=== PATIENT | female | born 1945 | race Caucasian/White ===

== ENCOUNTER → 2023-11-14 14:53 | Outpatient (REF) | payer MEDICARE, OTHER, SELFPAY | LOC: RCS 14:53 | PROVIDERS: ATTENDING PHYSICIAN Internal Medicine Cardiovascular Disease; FAMILY PHYSICIAN Hospitalist | DX: R06.02 Shortness of breath (principal) | CPT/HCPCS: 93306 ==

== ENCOUNTER → 2024-05-20 09:46 | Outpatient (REF) | payer MEDICARE, OTHER, SELFPAY ==
[2024-05-20 10:51] LABS: Urine Albumin Negative (Neg - Trace); Urine Bilirubin Negative (Negative); Urine Character Clear (Clear); Urine Color Yellow; Urine Glucose Negative (Negative); Urine Ketone Negative (Negative); Urine Leukocyte Negative (Negative); Urine Nitrite Negative (Negative); Urine Occult Blood Negative (Negative); Urine Specific Gravity 1.015 (<1.030); Urine Urobilinogen Negative (Neg - 1+)
== END ==
LOC: OLABHEARBC 09:46
DX: N39.0 Urinary tract infection, site not specified (principal)
CPT/HCPCS: 81003; 87086

== ENCOUNTER → 2024-05-24 09:35 | Outpatient (REF) | payer MEDICARE, OTHER, SELFPAY | LOC: RAD 09:35 | PROVIDERS: ATTENDING PHYSICIAN Physical Medicine & Rehabilitation; FAMILY PHYSICIAN Hospitalist | DX: M81.0 Age-related osteoporosis without current pathological fracture (principal) | CPT/HCPCS: 77080 ==

== ENCOUNTER → 2024-09-09 09:55 | Outpatient (REF) | payer MEDICARE, OTHER, SELFPAY ==
[2024-09-09 11:25] LABS: % Basophils 0.7 % (0-2); % Eosinophils 3.2 % (0-6); % Immature Granulocytes 0.2 % (0-0.5); % Monocytes 12.1 % (1.7-9.3); % Neutrophils 61.8 % (42.2-75.2); Absolute Eosinophils 0.2 10^3/uL (0-0.7); Absolute Lymphocytes 1.3 10^3/uL (1.2-3.4); Absolute Monocytes 0.7 10^3/uL (0.1-0.6); Absolute Neutrophils 3.5 10^3/uL (1.4-6.5); Hematocrit 44.2 % (37.0-47.0); Hemoglobin 14.4 g/dL (12.0-16.0); Mean Corp Hgb Conc. 32.6 g/dL (33.0-37.0); Mean Corpuscular Hgb 30.8 pg (27.0-31.0); Mean Corpuscular Volume 94.6 fL (81.0-99.0); Mean Platelet Volume 11.2 fL (7.4-10.4); Nucleated Red Blood Cells % 0 %; Platelet Count 172 10^3/uL (130-400); Red Blood Cell Count 4.67 10^6/uL (4.20-5.40); Red Cell Dist. Width 14.3 % (11.5-14.5); White Blood Cell Count 5.7 10^3/uL (4.8-10.8)
[2024-09-09 12:01] LABS: ALT (SGPT) 17 U/L (0-35); AST (SGOT) 29 U/L (14-36); Alkaline Phosphatase 107 U/L (38-126); Blood Urea Nitrogen 20 mg/dl (7-17); Calcium 9.5 mg/dl (8.4-10.2); Carbon Dioxide 30 mmol/L (22-30); Chloride 98 mmol/L (98-107); Glucose 93 mg/dl (70-99); Potassium 4.5 mmol/L (3.5-5.1); Sodium 137 mmol/L (135-145); Total Protein 6.8 g/dl (6.3-8.2); eGFR 46.62
[2024-09-09 12:45] LABS: Erythrocyte Sed Rate 13 mm/hour (0-20)
== END ==
LOC: RAD 09:55
PROVIDERS: ATTENDING PHYSICIAN Internal Medicine; FAMILY PHYSICIAN Hospitalist
DX: M06.9 Rheumatoid arthritis, unspecified (principal); Z51.81 Encounter for therapeutic drug level monitoring
CPT/HCPCS: 36415; 73130; 80053; 85025; 85652; 86140

== ENCOUNTER 2024-10-14 19:47 | Inpatient (IN) | payer MEDICARE, OTHER, SELFPAY ==
[2024-10-14 14:01] VITALS: BMI 44.8
[2024-10-14 14:10] VITALS: BP 116/81
[2024-10-14 15:00] LABS: % Basophils 0.4 % (0-2); % Eosinophils 0.7 % (0-6); % Immature Granulocytes 0.2 % (0-0.5); % Lymphocytes 14.6 % (20.5-51.1); % Monocytes 12.2 % (1.7-9.3); % Neutrophils 71.9 % (42.2-75.2); Absolute Eosinophils 0.1 10^3/uL (0-0.7); Absolute Lymphocytes 1.3 10^3/uL (1.2-3.4); Absolute Monocytes 1.1 10^3/uL (0.1-0.6); Absolute Neutrophils 6.6 10^3/uL (1.4-6.5); Hematocrit 41.1 % (37.0-47.0); Hemoglobin 13.4 g/dL (12.0-16.0); Mean Corp Hgb Conc. 32.6 g/dL (33.0-37.0); Mean Corpuscular Volume 95.1 fL (81.0-99.0); Mean Platelet Volume 11.1 fL (7.4-10.4); Nucleated Red Blood Cells % 0 %; Platelet Count 151 10^3/uL (130-400); Red Blood Cell Count 4.32 10^6/uL (4.20-5.40); Red Cell Dist. Width 14.3 % (11.5-14.5); White Blood Cell Count 9.1 10^3/uL (4.8-10.8)
[2024-10-14 15:12] LABS: ALT (SGPT) 16 U/L (0-35); AST (SGOT) 27 U/L (14-36); Albumin 3.8 g/dl (3.5-5.0); Alkaline Phosphatase 108 U/L (38-126); Blood Urea Nitrogen 17 mg/dl (7-17); Calcium 8.6 mg/dl (8.4-10.2); Carbon Dioxide 33 mmol/L (22-30); Chloride 101 mmol/L (98-107); Glucose 83 mg/dl (70-99); Potassium 4.3 mmol/L (3.5-5.1); Sodium 139 mmol/L (135-145); Total Bilirubin 0.9 mg/dl (0.2-1.3); Total Protein 6.7 g/dl (6.3-8.2); eGFR 46.62
[2024-10-14 15:20] LABS: COVID-19 Antigen Negative (Negative)
[2024-10-14 15:24] LABS: NT-proBNP 680 pg/ml; Troponin I < 0.012 ng/ml
[2024-10-14 16:28] VITALS: BP 117/45
--- NOTE | 2024-10-14 17:21 | ED.GENMED ---
History of Present Illness
<Jessica Espino PA-C - Last Filed: 10/14/24 23:53>
General
Chief Complaint: Breathing Problem
Source: patient
Exam Limitations: none
Time Seen by Provider: 10/14/24 16:18
Nursing documentation reviewed up to this point in time: agreed with
History of Present Illness
History of Present Illness:
Patient is a 79-year-old female history hypertension, hyperlipidemia presenting to the emergency department with low pulse ox noted at urgent care. Patient reports 2 days of productive cough, low-grade fevers, and exertional shortness of breath.
She denies any associated chest pain or worsening lower extremity swelling/pain. She denies any nausea, vomiting, abdominal pain, urinary symptoms. No hemoptysis. No recent travel or recent surgeries. No lower extremity edema or pain. Patient
has had no known sick contacts.
This morning�patient was receiving an infusion for her rheumatoid arthritis when they recommended she be seen in urgent care due to her abnormal vital signs.
Patient does take hydroxychloroquine and methotrexate
Past History
<Jessica Espino PA-C - Last Filed: 10/14/24 23:53>
Past History
ED Past Medical History: None
ED Past Surgical History: None
Social History
Tobacco: Non-smoker
Alcohol: None
Drug: None
Living: alone
Review of Systems
<Jessica Espino PA-C - Last Filed: 10/14/24 23:53>
Review of Systems
Allergies reviewed?: Yes
All Other Systems: ROS reviewed and negative except as documented in HPI and ROS
Phy Exam
<Jessica Espino PA-C - Last Filed: 10/14/24 23:53>
Physical Exam
Physical Exam:
Vitals: 91% room air, otherwise vital signs stable. Afebrile
General: Patient is well appearing, no acute distress
Skin: Warm and dry, no rashes or lesions
Head: Normocephalic, atraumatic
Eyes: Sclera nonicteric. EOMs intact. No nystagmus.
Throat: Mildly dry mucous membranes. Protecting airway
Neck: Normal ROM, no cervical spine tenderness, no meningismus
Cardiac: Regular rate and rhythm, no murmurs.
Pulm: 91% on room air, lungs clear bilaterally without wheeze
Abdomen: Abdomen soft and nontender.
Extremities: No evidence of cyanosis or edema. Palpable DP pulses bilaterally
Neuro: AAOx3. Grossly intact.
Psychiatric: Normal affect.
Scores
<Jessica Espino PA-C - Last Filed: 10/14/24 23:53>
Heart Failure Risk
Heart Failure Risk Score: Not Applicable
Course
<Jessica Espino PA-C - Last Filed: 10/14/24 23:53>
Orders/Labs/Results
Orders:
Orders
10/14/24 14:16
Electrocardiogram (*1) Urgent
Reason for Study: Shortness of Breath
10/14/24 14:17
EKG- Treatment ONCE
10/14/24 14:33
COVID-19 Antigen Urgent
Source: Nasal Swab
Complete Blood Count/With Diff Urgent
Comprehensive Metabolic Panel Urgent
INF RAPID [Influenza A+B Rapid Molecular] Urgent
CARLOS Source: Nasal Swab
Specimen Description:
10/14/24 14:36
NT-proBNP Urgent
Troponin I Urgent
10/14/24 Dinner
Regular
At Your Request: Full Participation
10/14/24 16:43
CR Chest - 2 Views Urgent
Comment:
Reason For Exam: cough, sob
10/14/24 18:13
0.9% Sodium Chloride 500 ml [Nss] 500 ml IV BOLUS
CefTRIAXone [Rocephin] 2,000 mg IV NOW STA
Doxycycline [Vibramycin] 100 mg PO NOW STA
10/14/24 19:06
Admit/Transfer Patient As Directed
Co-Sign Provider:
Level of Care: Inpatient admission
Assign to:: Medical/Surgical
Physician / Group: hospitalist
Diagnosis: pneumonia
Reason for Hospitalization: hypoxia
Expected length of stay greater than two midnights?: Yes
ELOS- Estimated Length of Stay in days: 2
I certify the patient meets the requirements for IP care: Yes
PRN Pain Medication Management As Directed
May give lesser potent ordered pain med per pt: Yes
preference::
Protocol:: Medication orders for pain may be administered in a
manner that supports deferring to patient preference
when the pt is:
- Requesting an ordered lesser potent pain medication.
Least to most potent pain medications are defined
as: acetaminophen < NSAID < tramadol < opioids
(morphine, oxycodone, hydromorphone).
- Requesting a lesser dose of the same medication IF
ORDERED.
- Requesting a less intrusive route of administration
if both routes are prescribed by the provider (PO <
IV).
10/14/24 19:07
Code Status As Directed
Resuscitation Status: Do not resuscitate
Reached after discussion with pt or family/Healthcare POA: Yes
DNR Bracelet Application ONCE
10/14/24 19:51
Acetaminophen [Tylenol] 650 mg PO Q4HPRN PRN
Ipratropium/Albuterol Sulfate [Duoneb] 3 ml INH R Q4HPRN PRN
Mag Hydrox/Al Hydrox/Simeth [Maalox] 15 ml PO QIDPRN PRN
10/14/24 19:51
Legionella Urinary Antigen Routine
CARLOS Source: Urine
Specimen Description:
Respiratory Culture/Gram Stain Urgent
CARLOS Source: Sputum
Specimen Description:
Strep pneumoniae Antigen Routine
CARLOS Source: Urine
Specimen Description:
Activity As Directed
Activity Level: Out of Bed-Early Mobility
Intake/ Output As Directed
Frequency: Per unit guidelines
Vital Signs As Directed
Frequency: Per unit guidelines
Weight As Directed
Frequency: Once
Comment: on admission
O2 Therapy [RESP] Routine
Nasal Cannula Liter Flow: 2 LPM
Titrate/Wean O2 to maintain O2 sat greater than (%): 95
Special Instructions: Wean as tolerated
Pulse Ox/cont/shift [RESP] Routine
Quantity: 1
Special Instructions: notify provider if SPO2 < 91%
Rx Incentive Spirometry [RESP] Routine
Frequency: q1h while awake
Pt Eval And Treat Routine
Activity Level: With Assistance
DX Deep Vein Thrombosis Video Routine
10/14/24 20:00
Bupropion(12Hr)Sustain Release [WELLBUTRIN SR (12 hour sustained release)] 150 mg PO BID
Hydroxychloroquine [Plaquenil] 200 mg PO BID
10/14/24 21:19
MRSA Screen Routine
CARLOS Source: Nose
Specimen Description:
10/15/24 06:00
Basic Metabolic Panel IN AM
Complete Blood Count/No Diff IN AM
Levothyroxine [Synthroid] 25 mcg PO DAILY @ 0600
10/15/24 08:00
Doxycycline [Vibramycin] 100 mg PO BID
FOLic ACID [Folvite] 1 mg PO DAILY
10/15/24 18:00
Atorvastatin [Lipitor] 20 mg PO QPM
CefTRIAXone [Rocephin] 2,000 mg IV Q24H
Docusate Sodium [Colace] 100 mg PO QPM
Enoxaparin Sodium [Lovenox] 40 mg SC QPM
Metoprolol Xl [Toprol Xl] 25 mg PO QPM
Sertraline HCl [Zoloft] 50 mg PO QPM
Abnormal Lab Results
10/14/24
14:33
MCHC 32.6 L g/dL
(33.0-37.0)
MPV 11.1 H fL
(7.4-10.4)
Absolute Neuts (auto) 6.6 H 10^3/uL
(1.4-6.5)
Absolute Monos (auto) 1.1 H 10^3/uL
(0.1-0.6)
Lymphocytes % 14.6 L %
(20.5-51.1)
Monocytes % 12.2 H %
(1.7-9.3)
Carbon Dioxide 33 H mmol/L
(22-30)
Creatinine 1.2 H mg/dL
(0.6-1.0)
10/14/24 14:33
10/14/24 14:33
Vital Signs
Initial and Last Documented VS:
Initial Vital Signs
Temp Pulse Resp BP Pulse Ox
98.5 F 77 20 116/81 91
10/14/24 14:10 10/14/24 14:10 10/14/24 14:10 10/14/24 14:10 10/14/24 14:10
Last Documented Vital Signs
Temp Pulse Resp BP Pulse Ox
99.6 F 75 21 126/57 94
10/14/24 19:34 10/14/24 17:15 10/14/24 17:15 10/14/24 19:37 10/14/24 17:15
<Jimbo Velazquez MD - Last Filed: 10/14/24 18:39>
Orders/Labs/Results
Orders:
Orders
10/14/24 14:16
Electrocardiogram (*1) Urgent
Reason for Study: Shortness of Breath
10/14/24 14:17
EKG- Treatment ONCE
10/14/24 14:33
COVID-19 Antigen Urgent
Source: Nasal Swab
Complete Blood Count/With Diff Urgent
Comprehensive Metabolic Panel Urgent
INF RAPID [Influenza A+B Rapid Molecular] Urgent
CARLOS Source: Nasal Swab
Specimen Description:
10/14/24 14:36
NT-proBNP Urgent
Troponin I Urgent
10/14/24 Dinner
Regular
At Your Request: Full Participation
10/14/24 16:43
CR Chest - 2 Views Urgent
Comment:
Reason For Exam: cough, sob
10/14/24 18:13
0.9% Sodium Chloride 500 ml [Nss] 500 ml IV BOLUS
CefTRIAXone [Rocephin] 2,000 mg IV NOW STA
Doxycycline [Vibramycin] 100 mg PO NOW STA
10/14/24 19:06
Admit/Transfer Patient As Directed
Co-Sign Provider:
Level of Care: Inpatient admission
Assign to:: Medical/Surgical
Physician / Group: hospitalist
Diagnosis: pneumonia
Reason for Hospitalization: hypoxia
Expected length of stay greater than two midnights?: Yes
ELOS- Estimated Length of Stay in days: 2
I certify the patient meets the requirements for IP care: Yes
PRN Pain Medication Management As Directed
May give lesser potent ordered pain med per pt: Yes
preference::
Protocol:: Medication orders for pain may be administered in a
manner that supports deferring to patient preference
when the pt is:
- Requesting an ordered lesser potent pain medication.
Least to most potent pain medications are defined
as: acetaminophen < NSAID < tramadol < opioids
(morphine, oxycodone, hydromorphone).
- Requesting a lesser dose of the same medication IF
ORDERED.
- Requesting a less intrusive route of administration
if both routes are prescribed by the provider (PO <
IV).
10/14/24 19:07
Code Status As Directed
Resuscitation Status: Do not resuscitate
Reached after discussion with pt or family/Healthcare POA: Yes
DNR Bracelet Application ONCE
10/14/24 19:51
Acetaminophen [Tylenol] 650 mg PO Q4HPRN PRN
Ipratropium/Albuterol Sulfate [Duoneb] 3 ml INH R Q4HPRN PRN
Mag Hydrox/Al Hydrox/Simeth [Maalox] 15 ml PO QIDPRN PRN
10/14/24 19:51
Legionella Urinary Antigen Routine
CARLOS Source: Urine
Specimen Description:
Respiratory Culture/Gram Stain Urgent
CARLOS Source: Sputum
Specimen Description:
Strep pneumoniae Antigen Routine
CARLOS Source: Urine
Specimen Description:
Activity As Directed
Activity Level: Out of Bed-Early Mobility
Intake/ Output As Directed
Frequency: Per unit guidelines
Vital Signs As Directed
Frequency: Per unit guidelines
Weight As Directed
Frequency: Once
Comment: on admission
O2 Therapy [RESP] Routine
Nasal Cannula Liter Flow: 2 LPM
Titrate/Wean O2 to maintain O2 sat greater than (%): 95
Special Instructions: Wean as tolerated
Pulse Ox/cont/shift [RESP] Routine
Quantity: 1
Special Instructions: notify provider if SPO2 < 91%
Rx Incentive Spirometry [RESP] Routine
Frequency: q1h while awake
Pt Eval And Treat Routine
Activity Level: With Assistance
DX Deep Vein Thrombosis Video Routine
10/14/24 20:00
Bupropion(12Hr)Sustain Release [WELLBUTRIN SR (12 hour sustained release)] 150 mg PO BID
Hydroxychloroquine [Plaquenil] 200 mg PO BID
10/14/24 21:19
MRSA Screen Routine
CARLOS Source: Nose
Specimen Description:
10/15/24 06:00
Basic Metabolic Panel IN AM
Complete Blood Count/No Diff IN AM
Levothyroxine [Synthroid] 25 mcg PO DAILY @ 0600
10/15/24 08:00
Doxycycline [Vibramycin] 100 mg PO BID
FOLic ACID [Folvite] 1 mg PO DAILY
10/15/24 18:00
Atorvastatin [Lipitor] 20 mg PO QPM
CefTRIAXone [Rocephin] 2,000 mg IV Q24H
Docusate Sodium [Colace] 100 mg PO QPM
Enoxaparin Sodium [Lovenox] 40 mg SC QPM
Metoprolol Xl [Toprol Xl] 25 mg PO QPM
Sertraline HCl [Zoloft] 50 mg PO QPM
Abnormal Lab Results
10/14/24
14:33
MCHC 32.6 L g/dL
(33.0-37.0)
MPV 11.1 H fL
(7.4-10.4)
Absolute Neuts (auto) 6.6 H 10^3/uL
(1.4-6.5)
Absolute Monos (auto) 1.1 H 10^3/uL
(0.1-0.6)
Lymphocytes % 14.6 L %
(20.5-51.1)
Monocytes % 12.2 H %
(1.7-9.3)
Carbon Dioxide 33 H mmol/L
(22-30)
Creatinine 1.2 H mg/dL
(0.6-1.0)
10/14/24 14:33
10/14/24 14:33
Vital Signs
Initial and Last Documented VS:
Initial Vital Signs
Temp Pulse Resp BP Pulse Ox
98.5 F 77 20 116/81 91
10/14/24 14:10 10/14/24 14:10 10/14/24 14:10 10/14/24 14:10 10/14/24 14:10
Last Documented Vital Signs
Temp Pulse Resp BP Pulse Ox
99.6 F 75 21 126/57 94
10/14/24 19:34 10/14/24 17:15 10/14/24 17:15 10/14/24 19:37 10/14/24 17:15
<Jessica Espino PA-C - Last Filed: 10/14/24 23:53>
MDM/Problems Addressed
Differential Diagnosis Includes:
Not limited to: Viral illness, bronchitis, pneumonia, pulmonary embolism, etc.
MDM/Problems Addressed:
79-year-old female with history as documented presenting with a few days of productive cough, subjective fevers, and exertional shortness of breath. She was found to be hypoxic at urgent care and referred to emergency department. Patient denies
any associated chest pain or hemoptysis. No lower extremity edema. Patient hypoxic requiring 2 L nasal cannula, otherwise stable vital signs. She is afebrile. Physical exam as above. Given history of subjective fevers and new cough�concern for
possible infectious process including pneumonia or bronchitis. Screening labs are sent in triage. CBC without any leukocytosis. Chemistry with mild renal insufficiency which appears baseline. Troponin undetectable with BNP of 680. Viral swabs
are negative. EKG obtained shows sinus rhythm ischemic changes. Will check chest x-ray and reassess.
Update: Chest x-ray shows likely right lower lobe pneumonia which is consistent with patient's symptoms. Patient is comfortable on 2 L nasal cannula. Given evidence of pneumonia requiring supplemental oxygen along with mild immunosuppression
secondary to methotrexate/hydroxychloroquine�patient will be admitted for IV antibiotics, supplemental O2. Patient given IV Rocephin, oral doxycycline in the emergency department�patient was accepted to hospitalist service in stable condition.
Chronic conditions affecting care:
Hypertension, hyperlipidemia, rheumatoid arthritis
Acute Exacerbation and/or Progression of Chronic Illness:
N/A
<Jessica Espino PA-C - Last Filed: 10/14/24 23:53>
*Radiology
Radiology exam reviewed: preliminary read by ED provider (Chest x-ray reviewed by me-opacity in right lower lobe) and radiology read reviewed (Chest x-ray with findings consistent of right lower lobe pneumonia)
*Pulse Oximetry
Patient hypoxic: no
*EKG
Interpreted by ED Provider?: Yes
EKG Intrepretation Date: 10/14/24
Interpretation: abnormal
Comparison EKG: no comparison EKG present
Heart Rate: 72
Rhythm: sinus
[place]: left axis deviation
Interval: normal QT interval
QRS Pattern: low voltage
Ischemia: non-specific ST changes
*Bank Operations Officer Interpretation
Rate: normal
Interpretation: normal
Heart Rate: 76
Rhythm: sinus
*Critical Care Note
Total Time (30-74mins, 75-104mins- exclusive of procedures): Not Applicable
<Jessica Espino PA-C - Last Filed: 10/14/24 23:53>
Patient Management
Discussion with other providers: Hospitalist (Case discussed with hospitalist)
Escalation/DeEscalation of care consider admission/obs:
Admit for IV antibiotics, supplemental O2
ED Attending Note
<Jessica Espino PA-C - Last Filed: 10/14/24 23:53>
-
Portions of this chart may have been created with voice recognition software.� Occasional wrong word or��sound alike� substitutions may have occurred due to the inherent limitations of voice recognition software.
<Jimbo Velazquez MD - Last Filed: 10/14/24 18:39>
ED Attending Note
Patient seen and examined by attending physician: Yes
ED Attending Note:
I have seen and evaluated the patient with a [id number] encounter. I have spoken to the advance practicer provider and involved in the medical history, the physical exam, medical decision making.
Evaluation and management service: agree unless noted differently below.
Results interpretation: agree unless noted differently below.
Focused HPI: 79-year-old female presents to the ER for evaluation of cough, shortness of breath; noted to be hypoxic at urgent care earlier today. Patient reports that she had a viral URI about 3 weeks ago and never fully recovered. Over the past
2 days has had increasing cough and shortness of breath. She said she had a fever last night. No swelling in the legs. No GI symptoms.
Physical exam: Awake and alert not in acute distress. Hypoxic requiring 2 L nasal cannula but otherwise normal vitals. She has some diminished breath sounds at the lung bases. No cardiac rubs gallops or murmurs. Abdomen nontender. Mild edema in
the legs.
Medical Decision Makin-year-old female presents with cough and shortness of breath status post recent viral syndrome. Labs reviewed CBC unremarkable, CMP shows CKD which is stable. COVID and flu negative. Chest x-ray shows right midlung
pneumonia. Will plan to admit for acute hypoxic respiratory failure secondary to pneumonia.
Discharge Plan
Departure
Patient Disposition: Admit
Date of Disposition: 10/14/24
Time of Disposition: 18:15
Presentation/result/management discussed w/ accepting MD/DO: Hospitalist
Discharge Problem:
Right lower lobe pneumonia
Interventions
Interventions:
*Risk Screen - Suicide Last Done: 10/14/24 14:10
*General Assessment Last Done: 10/14/24 14:10
*Neglect/Abuse Screening Last Done: 10/14/24 16:22
*ED- Fall Risk Assessment Last Done: 10/14/24 16:22
*ED COVID-19 Vaccine History Last Done: 10/14/24 14:10
ED- Cardiac Assessment Last Done: 10/14/24 16:22
ED- Pulmonary Assessment Last Done: 10/14/24 16:22
--- NOTE | 2024-10-14 18:54 | HPS.HSE ---
Family Physician
-
Family Physician: Mojgan Burciaga DO
Chief Complaint
-
Cough and shortness of breath
History of Present Illness
This is a 79-year-old female with past medical history significant for rheumatoid arthritis on monthly infusions and Plaquenil but not currently on steroids, history of previous spontaneous aneurysmal bleed status post craniotomy, hypothyroid,
hyperlipidemia, and depression who presents to the emergency department with worsening cough and shortness of breath.
Patient reports that she has had a cough for about 2 days which is productive of scant sputum. However overnight she reports cough paroxysms which prevented her from sleeping. She reports the cough is associated with pain across her ribs. She
reports shortness of breath over the last 2 days with no dyspnea on exertion and no exertional chest pain. Patient was seen at urgent care today and was found to be hypoxic. She was pending infusion for monthly rheumatoid treatment but she
appeared quite ill to the clinic and that was postponed.
Patient reports that she has had several months of shortness of breath which was not quite severe. Alcohol is only at night which associated with deep breathing. It is never associated with any exertional chest pain or pleuritic chest pain. She
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 She reported that she had a fever today but she did not measure her temperature. She has no known sick contacts.
Patient reported that about 2 months ago she was diagnosed with upper respiratory infection.
In the emergency department she was recorded with a temp of 98.5, blood pressure was 117/45 with a pulse of 75 and she was satting 94% on 2 L. ECG shows a normal sinus rhythm at a rate of 72 and no acute changes, no prior for comparison. Troponin
was negative. proBNP was slightly abnormal at 680. CBC was completely normal. Electrolytes BUN/creatinine within the normal range. Chest x-ray shows a right lower lobe opacity.
Medical History
Past Medical History
Past Medical History: Reports Hypercholesterolemia and Other (Rheumatoid arthritis)
Additional Past Medical History:
Intracranial aneurysm status post bleed
Past Surgical History: Reports Orthopedic (Lumbar spinal fusion, status post left hip arthroplasty)
Social History
Tobacco: Former Smoker
Alcohol: None
Drug: None
Personal: Single
Living: Assisted Living
Employment: Retired
Family History
Family History: Not pertinent
Allergies / Home Medications
Allergies reflects when Allergies were last updated in [facility].
Home Medications with original date entered in [facility]
Allergy/Medication List:
Allergies
Allergy/AdvReac Type Severity Reaction Status Date / Time
No Known Allergies Allergy Verified 10/14/24 16:23
Home Medications
atorvastatin 20 mg tablet 20 mg PO QPM High Cholesterol 05/24/23
bupropion HCl 150 mg tablet,12 hr sustained-release 150 mg PO BID Mental Health/Anxiety 05/24/23
cholecalciferol (vitamin D3) 25 mcg (1,000 unit) tablet (Vitamin D3) 25 mcg PO DAILY Supplement 05/24/23
docusate sodium 100 mg capsule 100 mg PO QPM Constipation 05/24/23
folic acid 1 mg tablet 1 mg PO DAILY Supplement 05/24/23
hydroxychloroquine 200 mg tablet (Plaquenil) 200 mg PO BID RHEUMATOID ARTHRITIS 05/24/23
levothyroxine 25 mcg tablet 25 mcg PO DAILY Thyroid 05/24/23
sertraline 50 mg tablet 50 mg PO QPM Mental Health/Anxiety 05/24/23
acetaminophen 325 mg tablet 650 mg (2 x 325 mg) PO Q4HPRN PRN mild pain #30 tabs 05/28/23
metoprolol succinate 25 mg tablet,extended release 24 hr 25 mg PO QPM #30 tabs 05/28/23
abatacept 87.5 mg/0.7 mL subcutaneous syringe (Orencia) 0 mg SC MONTHLY 10/14/24
methotrexate 2.5 mg/mL oral solution 0 mg PO FR 10/14/24
Review of Systems
-
History Source: Patient
Constitutional: Reports Fever
EENT: Reports No Symptoms
Respiratory: Reports No Symptoms, Cough and Trouble Breathing
Cardiac: Reports No Symptoms
: Reports No Symptoms
Musculoskeletal: Reports No Symptoms
Skin: Reports No Symptoms
Neurological: Reports No Symptoms
Endocrine: Reports No Symptoms
Psych: Reports No Symptoms
Physical Exam
Vital Signs
Vital Signs
Temp Pulse Resp BP Pulse Ox
98.5 F 75 21 117/45 94
10/14/24 14:10 10/14/24 17:15 10/14/24 17:15 10/14/24 16:28 10/14/24 17:15
Physical Exam
General: Well Developed, Well Nourished, Comfortable and Conversant
HEENT: NormoCephalic, Anicteric, Moist mucous membranes, Atraumatic, PERRLA and Oxygen
Respiratory: Clear
Cardiac: S1/S2 and Regular Rhythm
Breast: Deferred by me
GI: Soft, Non Tender and Non Distended
Rectal: Deferred by Provider
Genito-urinary: Deferred by me
Musculoskeletal: No Clubbing, No Cyanosis and No Edema
Skin: Warm and Dry
Neuro: AO x 3 and No Motor Deficits
Hematologic/Lymphatic: No Lymphadenopathy
Psych: Calm
Laboratory Results
-
10/14/24 14:33
10/14/24 14:33
Laboratory Results
Total Bilirubin 0.9 mg/dl (0.2-1.3) 10/14/24 14:33
AST 27 U/L (14-36) 10/14/24 14:33
ALT 16 U/L (0-35) 10/14/24 14:33
Alkaline Phosphatase 108 U/L (38-126) 10/14/24 14:33
Troponin I < 0.012 ng/ml 10/14/24 14:36
Data Reviewed
-
Diagnostic Radiology: Image Personally Visualized and interpreted and Report Reviewed by me
Medical Tests (Nuc Med, Echo, EKG etc): Image Personally Visualized and interpreted
Lab Data: Labs Reviewed by me
Old Records: Reviewed
Impression/Plan
-
IMPRESSION:
79year-old with a history of rheumatoid arthritis currently on Plaquenil and abatacept, last infusion 1 month ago, presents to Emergency Department with cough and shortness of breath and found to be hypoxic with right lower lobe opacity consistent
with acute to pneumonia. Patient has a smoking history but denies history of COPD and is not on home O2. She is on chronic Plaquenil. She is not on chronic prednisone. She is hypoxic requiring 2 L O2. She is hemodynamically stable.
PLAN:
1. Pneumonia - CAP, seems to have had URI about 2 months ago. Mild immunosuppression. High risk for decompensation and currently on 2 L and stable.
- admit to med/surg
- agree with continuation of ceftriaxone + doxycycline for now
- obtain usual urinary ag
- COVID/Flu negative
- blood cultures if spike
- mrsa swab
- duonebs prn
- incentive spirometry
- Pt evaluation
2. Elevated BNP. - No h/o CHF. No evidence of pitting edema or JVD. Cannot rule out some underlying heart disease but patient has no known CAD.
- recommend outpatient follow up with pmd and weight monitoring for now, no indication for diuresis and do not believe CHF plays a role in acute illness
3. Continue her plaquenil 200 bid, levothyroxine and metoprolol per home regimen
DVT PPX - lovenox sq
Code status - DNR
[2024-10-14] MEDS: VIBRAMYCIN 100 MG PO (19:00)
[2024-10-14] MEDS: ROCEPHIN 2000 MG IV (19:00)
[2024-10-14] MEDS: NSS 500 IV (19:03)
[2024-10-14 19:37] VITALS: BP 126/57
[2024-10-14] MEDS: PLAQUENIL 200 MG PO (21:13)
[2024-10-14 23:30] VITALS: BP 153/59
[2024-10-15] VITALS (10 sets, daily range): BP systolic 102–141; BP diastolic 54–88; PULSE 77; O2SAT 94; BMI 42.2
[2024-10-15 06:31] LABS: Hematocrit 39.3 % (37.0-47.0); Hemoglobin 12.9 g/dL (12.0-16.0); Mean Corp Hgb Conc. 32.8 g/dL (33.0-37.0); Mean Corpuscular Hgb 31.1 pg (27.0-31.0); Mean Corpuscular Volume 94.7 fL (81.0-99.0); Mean Platelet Volume 11.9 fL (7.4-10.4); Platelet Count 107 10^3/uL (130-400); Red Blood Cell Count 4.15 10^6/uL (4.20-5.40); Red Cell Dist. Width 14.6 % (11.5-14.5); White Blood Cell Count 9.5 10^3/uL (4.8-10.8)
[2024-10-15 06:39] LABS: Blood Urea Nitrogen 16 mg/dl (7-17); Calcium 8.4 mg/dl (8.4-10.2); Carbon Dioxide 31 mmol/L (22-30); Chloride 104 mmol/L (98-107); Estimated Creatinine Clearance 50 ml/min; Glucose 86 mg/dl (70-99); Potassium 4.1 mmol/L (3.5-5.1); Sodium 138 mmol/L (135-145); eGFR 51.75
[2024-10-15] MEDS: SYNTHROID 25 MCG PO (06:41)
--- NOTE | 2024-10-15 07:50 | W.PN.HOSP.TC ---
Today's Communication/Plan
-
see plan
Assessment / Plan
Assessment / Plan
Gen: NAD, AAOx3.
Eyes: EOMI, PERRLA, no scleral icterus.
Neck: supple.
CV: RRR, +S1/S2, no m/r/g.
Resp: Faint rales and decreased breath sounds in the bases
Abd: +BS, soft, NT, ND
Skin: No rashes.
Neuro: CN 2-12 intact, non-focal.
Psych: Normal mood and affect.
CXR: Small patchy right lower lobe opacity and questionable small patchy right midlung opacity, at least suspicious for pneumonia/pneumonitis.
Acute hypoxemic respiratory insufficiency due to right lower lobe pneumonia versus pneumonitis:
-Immunocompromised due to being on Plaquenil methotrexate for rheumatoid arthritis
-with hemoptysis
-Afebrile, no leukocytosis
-Currently on 4L NC O2
-COVID/flu/Legionella/strep negative
-currently Rocephin/Doxy, note Procal NEG
-Degree of hypoxemia seems disproportionate to imaging findings. Check CT chest (no IV contrast with CKD3a). c/s pulm.
Other problems:
h/o spontaneous aneurysmal bleed s/p craniotomy
Hypothyroidism: cont Levoxyl
Hyperlipidemia: cont statin
Depression: cont Zoloft/Welbutrin
RA: cont Plaquenil, MTX on hold
Morbid obesity due to excess calories: Encourage weight loss, affects all aspects of care
DNR/Lovenox
Total time spent on today's encounter was 50 minutes which included time spent in counseling the patient/family regarding diagnosis and treatment plan as listed above, goals of care, and symptom management. Case was discussed with nursing staff,
specialists, and care coordinators/case management. All labs and imaging personally reviewed by me. Remainder the time spent in detailed review of previous records, lab data, imaging, and other medical provider documentation.
Anticipated Discharge: > 48 hours
Subjective/Interval History
-
Date of Service: October 15, 2024
No change in symptoms since admission.
Objective Data
-
Labs:
Laboratory Results
10/15/24
05:47
WBC 9.5
Hgb 12.9
Hct 39.3
Plt Count 107 L D
Sodium 138
Potassium 4.1
Chloride 104
Carbon Dioxide 31 H
BUN 16
Creatinine 1.1 H
Glucose 86
Calcium 8.4
Vital Signs:
Vital Signs
Temp Pulse Resp BP Pulse Ox
99.1 F 82 16 133/68 91
10/15/24 02:40 10/15/24 05:38 10/15/24 05:38 10/15/24 05:38 10/15/24 05:45
[2024-10-15] MEDS: WELLBUTRIN SR (12 hour sustained release) 150 MG PO (09:14)
[2024-10-15] MEDS: TYLENOL 650 MG PO (09:14)
[2024-10-15] MEDS: VIBRAMYCIN 100 MG PO ×2 (09:14→20:32)
[2024-10-15] MEDS: FOLVITE 1 MG PO (09:14)
[2024-10-15] MEDS: PLAQUENIL 200 MG PO ×2 (09:15→20:32)
[2024-10-15 10:00] LABS: Procalcitonin < 0.05 ng/ml (0.0-0.25)
[2024-10-15] MEDS: MUCINEX 600 MG PO ×2 (11:51→20:32)
--- NOTE | 2024-10-15 11:56 | CON.PUL ---
Consultation
Consultation Request
Date/Time Consultation Requested: 10/15/2024
Date/Time Consultation Performed: 10/15/2024
Requesting Provider: Josué Terrazas
Performing Provider: Sudhir Foote
Reason for Consultation: Dyspnea, hemoptysis
Medical History
-
Chief Complaint: Shortness of breath
History of Present Illness:
Patient is a very pleasant 79-year-old female who presented to the emergency room for cough and shortness of breath. Patient has known history of rheumatoid arthritis on immunosuppression with methotrexate, hydroxychloroquine and Orencia shots
monthly. Patient reports that about 3 weeks ago she developed an upper respiratory infection where she developed a runny nose mild sore throat followed by cough. She reports that her symptoms improved transiently and have not fully resolved over
the last 3 weeks. She lives in an independent facility and does report exposure to sick contacts. Over the last few days she feels that she has been coughing more and bringing up puri-colored sputum. Also reports intermittent wheezing. Cough
tends to be a little more at nighttime per patient. No pleuritic discomfort, no chest pain reported. Patient went for her monthly Orencia infusion yesterday and was referred to urgent care in view of her cough and not feeling well. Patient
reportedly was noted to be hypoxic at urgent care facility, 88% on room air.
Patient was subsequently sent to emergency room where x-ray was suggestive of multifocal infiltrates concerning for pneumonia. Patient was admitted to the hospitalist service. This morning she had a trace amount of hemoptysis and pulmonary
consultation was requested for further input.
Past Medical History: Reports Hypercholesterolemia and Other (Rheumatoid arthritis)
Additional Past Medical History:
Intracranial aneurysm status post bleed
Past Surgical History: Reports Orthopedic (Lumbar spinal fusion, status post left hip arthroplasty)
Social History
Tobacco: Former Smoker. Patient has close to [id number] smoking history, she quit 20 years ago. No reported marijuana use or vaping. No pets or birds exposure. Lives in an independent living facility.
Alcohol: None
Drug: None
Personal: Single
Living: Assisted Living
Employment: Retired
Family History
Family History: Not pertinent
Allergies / Home Medications
Allergies reflects when Allergies were last updated in [facility].
Home Medications with original date entered in [facility]
Allergies / Home Medications
Allergies
Allergy/AdvReac Type Severity Reaction Status Date / Time
No Known Allergies Allergy Verified 10/14/24 16:23
Home Medications
�Medication �Instructions �Recorded �Confirmed �Last Taken �Type
atorvastatin 20 mg tablet 20 mg PO QPM High Cholesterol 05/24/23 10/14/24 10/13/24 History
bupropion HCl 150 mg tablet,12 hr 150 mg PO BID Mental Health/Anxiety 05/24/23 10/14/24 10/14/24 History
sustained-release
cholecalciferol (vitamin D3) 25 25 mcg PO DAILY Supplement 05/24/23 10/14/24 10/14/24 History
mcg (1,000 unit) tablet (Vitamin
D3)
docusate sodium 100 mg capsule 100 mg PO QPM Constipation 05/24/23 10/14/24 10/13/24 History
folic acid 1 mg tablet 1 mg PO DAILY Supplement 05/24/23 10/14/24 10/14/24 History
hydroxychloroquine 200 mg tablet 200 mg PO BID RHEUMATOID ARTHRITIS 05/24/23 10/14/24 10/14/24 History
(Plaquenil)
levothyroxine 25 mcg tablet 25 mcg PO DAILY Thyroid 05/24/23 10/14/24 10/14/24 History
sertraline 50 mg tablet 50 mg PO QPM Mental Health/Anxiety 05/24/23 10/14/24 10/13/24 History
acetaminophen 325 mg tablet 650 mg (2 x 325 mg) PO Q4HPRN PRN 05/28/23 10/14/24 10/13/24 Rx
mild pain #30 tabs
metoprolol succinate 25 mg 25 mg PO QPM #30 tabs 05/28/23 10/14/24 10/13/24 Rx
tablet,extended release 24 hr
abatacept 87.5 mg/0.7 mL 0 mg SC MONTHLY 10/14/24 10/14/24 Unknown History
subcutaneous syringe (Orencia)
methotrexate 2.5 mg/mL oral 0 mg PO FR 10/14/24 10/14/24 10/08/24 History
solution
Review of Systems
-
Hematologic/Lymphatic: Other (All 14 systems reviewed and negative except as stated above in the history of present illness.)
Vitals / Labs / Diagnostic Testing
Vital Signs
Temp Pulse Resp BP Pulse Ox
99.3 F 81 20 121/54 92
10/15/24 07:58 10/15/24 07:58 10/15/24 07:58 10/15/24 07:58 10/15/24 07:58
Lab Data
10/15/24 05:47
10/15/24 05:47
Microbiology
10/15/24 02:31 Urine Legionella Urinary Antigen - Final
Negative for Legionella pneumophila Serogroup 1 antigen.
A negative result does not rule out the possiblity of
Legionella infection due to other serogroups or species of
Legionella. Clinical correlation is recommended.
10/15/24 02:31 Urine Streptococcus pneumoniae Antigen (M - Final
Negative for Streptococcus pneumoniae antigen.
A negative result does not exclude infection with
Streptococcus pneumoniae. Clinical correlation is
recommended.
10/14/24 14:33 Nasal Swab Influenza Types A & B (ALVIN) - Final
Negative for Influenza A & B, NAAT
Negative results must be combined with clinical observations
and patient history.
Nucleic Acid Amplification test (NAAT)performed on the
[employer] platform.
Diagnostic Testing:
Physical Exam
-
HEENT: Normocephalic
Cardiovascular: S1/S2
Respiratory: Wheeze (Faint, minimal end expiratory wheezing.)
GI: Soft and Non Distended
Neurology: Awake and Alert
Skin: Warm
General: Comfortable
Assessment
-
#1. Acute hypoxic respiratory failure. This appears to be related to multifocal pulmonary infiltrates noted on chest x-ray
-Continue O2 support as needed to keep sats above 90 to 92%
-CT chest with contrast without evidence of PE
-BNP elevated at 680, check echocardiogram to evaluate for CHF and pulmonary hypertension
#2. Multifocal infiltrates, ?pneumonia. Influenza A, B screen negative. MRSA screen pending. Legionella and strep pneumo antigen negative. Respiratory cultures and Gram stain for sputum pending. COVID-19 screen negative. Procalcitonin is less
than 0.05 (patient is immunocompromised however). Patient is afebrile, Normal WBC count of 9.5.
-Check extended respiratory viral panel
-Continue Rocephin and Doxycycline as ordered
-Follow-up on sputum cultures
-Patient is immunocompromised with methotrexate and Orencia, if any clinical worsening, will need bronchoscopy with BAL to rule out any opportunistic infection
-Patient is on Orencia, Abatacept, which also can cause pneumonitis, medication on hold, she did not receive the scheduled dose on 10/14, essentially last dose was about a month ago
-Hold methotrexate also, continue Plaquenil 200 mg twice daily
-Mass like consolidative opacity in LLL will need follow up imaging in 6-8 weeks, and if persists, will need Bronchoscopy and Biopsy. Will arrange out patient follow up with Pulmonary clinic.
#3. Trace hemoptysis. This is likely in the setting of underlying pulmonary infection. Patient is not on any blood thinners.
-Discontinue s.c. Lovenox, ordered for DVT prophylaxis, start SCDs instead
-Follow-up on sputum cultures
-Monitor closely, if any clinical worsening, transfer to ICU and let pulmonary service now
-Serial hematocrit
-CT chest not suggestive of acute PE
#4. History of smoking, episodic wheezing, ?underlying COPD
-Patient has [id number] smoking history, she might have some underlying COPD especially with the reported history of episodic wheezing
-Start DuoNebs on an as-needed basis
-Patient will need full pulmonary function testing and 6-minute walk test as outpatient for further evaluation. Will arrange outpatient pulmonary follow-up after discharge.
Other medical diagnoses:
-History of intracranial aneurysm, 2014
-Hypothyroidism
-Hyperlipidemia
-Depression
Total time spent on this consultation/encounter _81___ minutes which includes review of history, physical exam, medications, laboratory data, personal review of imaging, extensive review of outpatient records, discussion with care team and
respiratory therapy.
Will arrange outpatient follow-up in pulmonary clinic after discharge
Data:
CXR 10/2024: Small patchy right lower lobe opacity and questionable small patchy right midlung opacity, at least suspicious for pneumonia/pneumonitis.
CT-PE 10/2024: -No CT evidence for pulmonary embolism
-Widespread pneumonia in the left lung. There is also evidence for pneumonia at the right lung base
-Additional more masslike opacities in the left lower lobe and in the posterior right upper lobe. Follow-up CT after appropriate medical therapy is recommended. If these opacities persist, additional evaluation may be necessary (such as with PET/CT
and/or biopsy)
-3 mm nodule in the right upper lobe also noted.
ECHO 11/2023: Normal left ventricular size, wall thickness and systolic function. No regional wall motion abnormalities are seen. LV ejection fraction is estimated at 60 to 65%.
Mildly dilated left atrium. Indexed LA volume is mildly abnormal (35-41 mL/m2). Mild tricuspid regurgitation. Estimated pulmonary artery pressure of 35-40 mmHg.
[2024-10-15] MEDS: DESENEX/MITRAZOL/ZEASORB 1 APPLIC TOPICAL ×2 (12:14→20:32)
--- NOTE | 2024-10-15 15:54 | PTCARENOTE ---
Patient admitted into room 2127 from ED. Patient AAOx3, VSS, POX 94% on 4L O2, patient states she does not normally wear oxygen at baseline. Patient ambulatory in room with standby assist and RW, OOB to chair. CT scan chest and ECHO ordered per MD.
Repeat sputum sample ordered per pulm, patient made aware, states she has not brought up any sputum since this AM but when she did it was blood-tinged. Pulm aware and consult in place. Patient states no SOB/concerns at this time. Respiratory therapy
made aware of viral panel ordered. ANI stockings ordered and applied. Patient oriented to room and call salguero.
[2024-10-15] MEDS: ZOLOFT 50 MG PO (17:13)
[2024-10-15] MEDS: LIPITOR 20 MG PO (17:13)
[2024-10-15] MEDS: TOPROL XL 25 MG PO (17:13)
[2024-10-15] MEDS: ROCEPHIN 2000 MG IV (17:16)
[2024-10-15] MEDS: STERILE WATER FOR INJECTION 20 ML IV (17:17)
--- NOTE | 2024-10-15 18:32 | PTCARENOTE ---
Patient provided sputum sample for this RN, sample in specimen cup blood-tinged. Patient states no concerns at this time, POX stable 95% on 4L NC O2. Specimen sent to lab per MD order. Pulm made aware, no new orders at this time.
[2024-10-16] MEDS: SYNTHROID 25 MCG PO (05:37)
[2024-10-16 07:10] VITALS: BP 140/81
[2024-10-16] MEDS: FOLVITE 1 MG PO (07:50)
[2024-10-16] MEDS: PLAQUENIL 200 MG PO ×2 (07:50→20:05)
[2024-10-16] MEDS: DESENEX/MITRAZOL/ZEASORB 1 APPLIC TOPICAL ×2 (07:50→20:05)
[2024-10-16] MEDS: TYLENOL 650 MG PO (07:50)
[2024-10-16] MEDS: MUCINEX 600 MG PO ×2 (07:50→20:05)
[2024-10-16] MEDS: WELLBUTRIN SR (12 hour sustained release) 150 MG PO (07:50)
[2024-10-16] MEDS: VIBRAMYCIN 100 MG PO ×2 (07:50→20:04)
[2024-10-16 09:33] LABS: Hematocrit 38.6 % (37.0-47.0); Hemoglobin 12.8 g/dL (12.0-16.0); Mean Corp Hgb Conc. 33.2 g/dL (33.0-37.0); Mean Corpuscular Hgb 31.2 pg (27.0-31.0); Mean Corpuscular Volume 94.1 fL (81.0-99.0); Mean Platelet Volume 10.8 fL (7.4-10.4); Platelet Count 125 10^3/uL (130-400); Red Cell Dist. Width 14.3 % (11.5-14.5); White Blood Cell Count 7.7 10^3/uL (4.8-10.8)
--- NOTE | 2024-10-16 10:43 | CM ---
attempted to arouse patient to do IA. Patient asleep. CM called dgtr,Porsche. Porsche reports patient lives in [facility]. SHe uses rollator. SHe gets not services in her apartment.Grab bars in shower .
PCP : Mojgan Burciaga
Pharmacy: [facility]
Dgtr said in past used [facility] and [facility]. Not sure they would use either again. Dgtr hopes patient can go back to [place] at [facility]. IF needs home care dgtr and patient will discuss and talk to [facility].
PLAN: Home
[2024-10-16 11:02] LABS: Blood Urea Nitrogen 17 mg/dl (7-17); Calcium 8.1 mg/dl (8.4-10.2); Carbon Dioxide 28 mmol/L (22-30); Chloride 104 mmol/L (98-107); Estimated Creatinine Clearance 62 ml/min; Glucose 219 mg/dl (70-99); Potassium 3.6 mmol/L (3.5-5.1); Sodium 138 mmol/L (135-145); eGFR > 60.00
[2024-10-16 11:15] VITALS: BP 137/61
--- NOTE | 2024-10-16 11:34 | W.PN.HOSP.TC ---
Addendum entered and electronically signed by Hector Rehman MD 10/16/24 11:42:
Hyperglycemia-check hemoglobin A1c
Original Note:
Today's Communication/Plan
-
Antibiotics
Acapella
Wean O2 as tolerated.
Assessment / Plan
Assessment / Plan
Echo 10/15/2024-LV size and function. EF 60 to 65%. Stage I diastolic dysfunction. Trace MR. Mild TR
10/15/24-CT- No CT evidence for pulmonary embolism.Widespread pneumonia in the left lung. There is also evidence for pneumonia at the right lung base. Masslike opacities in the left lower lobe and in the posterior right upper lobe.3 mm nodule in the
right upper lobe also noted.
CVS: S1-S2 normal
Chest: rales left
Abdomen: Soft, NT / Bowel sounds present
Extremities: No edema
# Acute hypoxemic respiratory insufficiency due to right lower lobe pneumonia versus pneumonitis:
-Immunocompromised due to being on Plaquenil methotrexate for rheumatoid arthritis
-Hemoptysis
-Afebrile
-Currently on 3L NC O2- wean as tolerated.
-COVID/flu/Legionella/strep negative
-Currently Rocephin/Doxy, Procal NEG
-Degree of hypoxemia seems disproportionate to imaging findings.
-Sputum cultures pending, influenza negative, COVID-negative
-Respiratory viral panel negative, Legionella and strep pneumonia negative. MRSA panel pending
-Pulm consulted.
# Mild thrombocytopenia-better, follow
# WALTER -Resolving.
# H/O spontaneous aneurysmal bleed s/p clipping 2014
# Hypothyroidism: cont Levoxyl
# Hypertension-continue metoprolol
# Hyperlipidemia: cont statin
# Depression: cont Zoloft/Wellbutrin
# RA: cont Plaquenil, MTX on hold
# Morbid obesity BMI 42
# History of nephrolithiasis
# Ex Smoker
# DVT prophylaxis- Lovenox stopped due to hemoptysis
# DNR
D/W RN at bed side
Anticipated Discharge: 24 - 48 hours
Subjective/Interval History
-
Date of Service: October 16, 2024
Objective Data
-
Labs:
Laboratory Results
10/16/24 10/16/24
07:45 10:40
WBC 7.7
Hgb 12.8
Hct 38.6
Plt Count 125 L
Sodium Cancelled 138
Potassium Cancelled 3.6
Chloride Cancelled 104
Carbon Dioxide Cancelled 28
BUN Cancelled 17
Creatinine Cancelled 0.9
Glucose Cancelled 219 H
Calcium Cancelled 8.1 L
Vital Signs:
Vital Signs
Temp Pulse Resp BP Pulse Ox
97.6 F 77 16 140/81 95
10/16/24 07:10 10/16/24 07:10 10/16/24 07:10 10/16/24 07:10 10/16/24 07:55
I&O
10/15/24 10/16/24 10/17/24
06:59 06:59 06:59
Intake Total 1530 / 1530
Balance 1530 / 1530
[2024-10-16 14:28] LABS: Glycohemoglobin (HgbA1c) 5.9 % (4.0-5.6)
--- NOTE | 2024-10-16 14:36 | W.PN.PUL3 ---
Today's Communication / Plan
-
Continue abx, sputum culture pending
Encouraged continued OOB/ambulation
Repeat CXR not significantly changed
Eventual home o2 eval
OP FU recommended when improved
Assessment
-
Patient is a very pleasant 79-year-old female who presented to the emergency room for cough and shortness of breath. Patient has known history of rheumatoid arthritis on immunosuppression with methotrexate, hydroxychloroquine and Orencia shots
monthly. Patient reports that about 3 weeks ago she developed an upper respiratory infection where she developed a runny nose mild sore throat followed by cough. She reports that her symptoms improved transiently and have not fully resolved over
the last 3 weeks. She lives in an independent facility and does report exposure to sick contacts. Over the last few days she feels that she has been coughing more and bringing up puri-colored sputum. Also reports intermittent wheezing. Cough
tends to be a little more at nighttime per patient. No pleuritic discomfort, no chest pain reported. Patient went for her monthly Orencia infusion yesterday and was referred to urgent care in view of her cough and not feeling well. Patient
reportedly was noted to be hypoxic at urgent care facility, 88% on room air.
Patient was subsequently sent to emergency room where x-ray was suggestive of multifocal infiltrates concerning for pneumonia. Patient was admitted to the hospitalist service. This morning she had a trace amount of hemoptysis and pulmonary
consultation was requested for further input.
Acute hypoxic respiratory failure.
Multifocal infiltrates, suspect pneumonia.
Trace hemoptysis.
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
History of smoking, episodic wheezing, ?underlying COPD
Rheumatoid arthritis
Essential hypertension
Intracranial aneurysm status post bleed
Lumbar spinal fusion, lumbar screws and ulisses placements
OA status post left hip arthroplasty
Morbid obesity, BMI 42
Depression
Thyroid nodule
Appendectomy
Adm @ [facility]: Kidney Stones 2022
Plan
This appears to be related to multifocal pulmonary infiltrates noted on chest x-ray
Continue O2 support as needed to keep sats above 90 to [address]
CT chest with contrast without evidence of PE
BNP elevated at 680, check echocardiogram to evaluate for CHF and pulmonary hypertension--stable findings
Influenza A, B screen negative. MRSA screen pending. Legionella and strep pneumo antigen negative.
Respiratory cultures and Gram stain for sputum pending. COVID-19 screen negative.
Procalcitonin is less than 0.05 (patient is immunocompromised however). Patient is afebrile, Normal WBC count of 9.5.
Continue Rocephin and Doxycycline as ordered
Follow-up on sputum cultures
Repeat CXR this AM not significantly changed
Patient is immunocompromised with methotrexate and Orencia, if any clinical worsening, will need bronchoscopy with BAL to rule out any opportunistic infection
Patient is on Orencia, Abatacept, which also can cause pneumonitis, medication on hold, she did not receive the scheduled dose on 10/14, essentially last dose was about a month ago
Hold methotrexate also, continue Plaquenil 200 mg twice daily
Mass like consolidative opacity in LLL will need follow up imaging in 6-8 weeks, and if persists, will need Bronchoscopy and Biopsy.
Will arrange out patient follow up with Pulmonary clinic.
Hemoptysis is likely in the setting of underlying pulmonary infection. Patient is not on any blood thinners.
Discontinue s.c. Lovenox, ordered for DVT prophylaxis, start SCDs instead
Improving, continue to quantify
Patient has [id number] smoking history, she might have some underlying COPD especially with the reported history of episodic wheezing
Start DuoNebs on an as-needed basis
Patient will need full pulmonary function testing and 6-minute walk test as outpatient for further evaluation.
Will arrange outpatient follow-up in pulmonary clinic after discharge
Data:
CXR 10/2024: Small patchy right lower lobe opacity and questionable small patchy right midlung opacity, at least suspicious for pneumonia/pneumonitis.
CT-PE 10/2024: -No CT evidence for pulmonary embolism
-Widespread pneumonia in the left lung. There is also evidence for pneumonia at the right lung base
-Additional more masslike opacities in the left lower lobe and in the posterior right upper lobe. Follow-up CT after appropriate medical therapy is recommended. If these opacities persist, additional evaluation may be necessary (such as with PET/CT
and/or biopsy)
-3 mm nodule in the right upper lobe also noted.
ECHO 10/15/24- 1. Left ventricle: Normal size and function with an estimated ejection fraction of 60-65%. Stage I diastolic dysfunction
2. Right ventricle: Normal
3. Atria: Normal
4. Mitral valve: Trace mitral regurgitation.
5. Aortic valve: Trileaflet. No aortic stenosis or aortic insufficiency
6. Tricuspid valve: Mild tricuspid regurgitation with estimated pulmonary artery systolic pressures of 37 mmHg
7. No significant change when compared to the most recent echocardiogram from 11/14/2023
ECHO 11/2023: Normal left ventricular size, wall thickness and systolic function. No regional wall motion abnormalities are seen. LV ejection fraction is estimated at 60 to 65%.
Mildly dilated left atrium. Indexed LA volume is mildly abnormal (35-41 mL/m2). Mild tricuspid regurgitation. Estimated pulmonary artery pressure of 35-40 mmHg.
Total time spent on this consultation/encounter _41___ minutes which includes review of history, physical exam, medications, laboratory data, personal review of imaging, extensive review of outpatient records, discussion with care team and
respiratory therapy.
Subjective Data
-
Date of Service:
Date of Service: October 16, 2024
Chief Complaint: Pulmonary Follow Up
Subjective:
No acute events ON, remains stable
Improving but not to baseline yet
Feels unsteady on her feet
Objective Data
Data Reviewed
Vital Signs / I&O / Oxygen:
Vital Signs
Temp Pulse Resp BP Pulse Ox
97.6 F 71 16 137/61 93
10/16/24 11:15 10/16/24 11:15 10/16/24 11:15 10/16/24 11:15 10/16/24 11:15
Intake and Output
10/15/24 10/16/24 10/17/24
06:59 06:59 06:59
Intake Total 1530 / 1530
Balance 1530 / 1530
SaO2 93
Nasal Cannula flow liters per 3
minute
Physical Exam
General: Comfortable and Other (NAD)
HEENT: Normocephalic, Anicteric and Moist Mucous Membranes
Cardiovascular: S1-S2 and Regular Rhythm
Respiratory: Clear and Non-Labored Respirations
GI: Soft, Non Distended and Non Tender
Neurology: Awake, Alert, Oriented and No Motor Deficits
Skin: Warm, Dry and Good Color
Labs/Micro/Reports
Lab Data
10/16/24 07:45
10/16/24 10:40
Microbiology
10/15/24 18:28 Sputum Gram Stain - Preliminary
10/14/24 21:19 Nose MRSA Screen - Final
Staph aureus MRSA
10/15/24 16:12 Nasalpharynx Influenza Type A (PCR) - Final
Not Detected
10/15/24 16:12 Nasalpharynx Influenza Type A (H1) (PCR) - Final
Not Detected
10/15/24 16:12 Nasalpharynx Influenza Type A (H3) (PCR) - Final
Not Detected
10/15/24 16:12 Nasalpharynx Influenza Type B (PCR) - Final
Not Detected
10/15/24 16:12 Nasalpharynx Resp Syncytial Virus Type A (PCR) - Final
Not Detected
10/15/24 16:12 Nasalpharynx Resp Syncytial Virus Type B (PCR) - Final
Not Detected
10/15/24 16:12 Nasalpharynx Adenovirus DNA (PCR) - Final
Not Detected
10/15/24 16:12 Nasalpharynx Human Metapneumovirus (PCR) - Final
Not Detected
10/15/24 16:12 Nasalpharynx Parainfluenza Virus Type 1 (PCR) - Final
Not Detected
10/15/24 16:12 Nasalpharynx Parainfluenza Virus Type 2 (PCR) - Final
Not Detected
10/15/24 16:12 Nasalpharynx Parainfluenza Virus Type 3 (PCR) - Final
Not Detected
10/15/24 16:12 Nasalpharynx Parainfluenza Virus Type 4 - Final
Not Detected
10/15/24 16:12 Nasalpharynx Rhinovirus (PCR) - Final
Not Detected
10/15/24 11:52 Sputum Respiratory Culture - Final
10/15/24 11:52 Sputum Gram Stain - Final
10/15/24 02:31 Urine Legionella Urinary Antigen - Final
Negative for Legionella pneumophila Serogroup 1 antigen.
A negative result does not rule out the possiblity of
Legionella infection due to other serogroups or species of
Legionella. Clinical correlation is recommended.
10/15/24 02:31 Urine Streptococcus pneumoniae Antigen (M - Final
Negative for Streptococcus pneumoniae antigen.
A negative result does not exclude infection with
Streptococcus pneumoniae. Clinical correlation is
recommended.
10/14/24 14:33 Nasal Swab Influenza Types A & B (ALVIN) - Final
Negative for Influenza A & B, NAAT
Negative results must be combined with clinical observations
and patient history.
Nucleic Acid Amplification test (NAAT)performed on the
[employer] platform.
[2024-10-16 15:00] VITALS: BP 145/67
[2024-10-16] MEDS: STERILE WATER FOR INJECTION 20 ML IV (17:17)
[2024-10-16] MEDS: ROCEPHIN 2000 MG IV (17:17)
[2024-10-16] MEDS: LIPITOR 20 MG PO (17:17)
[2024-10-16] MEDS: TOPROL XL 25 MG PO (17:17)
[2024-10-16] MEDS: ZOLOFT 50 MG PO (17:46)
[2024-10-16 23:22] VITALS: BP 127/70
[2024-10-17] MEDS: SYNTHROID 25 MCG PO (05:23)
[2024-10-17 06:50] LABS: Blood Urea Nitrogen 20 mg/dl (7-17); Calcium 8.3 mg/dl (8.4-10.2); Carbon Dioxide 24 mmol/L (22-30); Chloride 104 mmol/L (98-107); Estimated Creatinine Clearance 62 ml/min; Glucose 124 mg/dl (70-99); Potassium 3.6 mmol/L (3.5-5.1); Sodium 137 mmol/L (135-145); eGFR > 60.00
[2024-10-17 06:55] LABS: Hematocrit 37.9 % (37.0-47.0); Hemoglobin 12.7 g/dL (12.0-16.0); Mean Corp Hgb Conc. 33.5 g/dL (33.0-37.0); Mean Corpuscular Hgb 31.3 pg (27.0-31.0); Mean Corpuscular Volume 93.3 fL (81.0-99.0); Mean Platelet Volume 11.7 fL (7.4-10.4); Platelet Count 140 10^3/uL (130-400); Red Blood Cell Count 4.06 10^6/uL (4.20-5.40); White Blood Cell Count 7.1 10^3/uL (4.8-10.8)
[2024-10-17] MEDS: VIBRAMYCIN 100 MG PO ×2 (07:56→20:57)
[2024-10-17] MEDS: MUCINEX 600 MG PO ×2 (07:56→20:57)
[2024-10-17] MEDS: PLAQUENIL 200 MG PO ×2 (07:56→20:57)
[2024-10-17] MEDS: FOLVITE 1 MG PO (07:56)
[2024-10-17] MEDS: WELLBUTRIN SR (12 hour sustained release) 150 MG PO ×2 (07:56→23:03)
[2024-10-17] MEDS: DESENEX/MITRAZOL/ZEASORB 1 APPLIC TOPICAL ×2 (08:03→20:58)
[2024-10-17 08:10] VITALS: BP 139/71
--- NOTE | 2024-10-17 10:21 | W.PN.HOSP.TC ---
Today's Communication/Plan
-
Antibiotics
Add a dose of Lasix
CXR tomorrow
Wean O2 as tolerated.
Assessment / Plan
Assessment / Plan
Echo 10/15/2024-LV size and function. EF 60 to 65%. Stage I diastolic dysfunction. Trace MR. Mild TR
10/15/24-CT- No CT evidence for pulmonary embolism.Widespread pneumonia in the left lung. There is also evidence for pneumonia at the right lung base. Masslike opacities in the left lower lobe and in the posterior right upper lobe.3 mm nodule in the
right upper lobe also noted.
CVS: S1-S2 normal
Chest: rales left
Abdomen: Soft, NT / Bowel sounds present
Extremities: No edema
# Acute hypoxemic respiratory insufficiency due to right lower lobe pneumonia versus pneumonitis:
-Immunocompromised due to being on methotrexate and Orencia for rheumatoid arthritis
-Hemoptysis better
-Afebrile
-Currently on 4L NC O2- wean as tolerated.
-COVID/flu/Legionella/strep negative
-Currently Rocephin/Doxy
-Procal NEG
-Sputum cultures pending, influenza negative, COVID-negative
-Respiratory viral panel negative, Legionella and strep pneumonia negative. MRSA panel pending
-Pulm following.
# MRSA Screen positive
# Cystic mass in the upper mid right kidney measuring at least 3.4 cm -OP Work up discussed with daughter.
# Mild thrombocytopenia-Resolved
# WALTER -Resolved
# H/O spontaneous aneurysmal bleed s/p clipping 2014
# Hypothyroidism: cont Levoxyl
# Hypertension-continue metoprolol
# Hyperlipidemia: cont statin
# Depression: cont Zoloft/Wellbutrin
# RA: cont Plaquenil, MTX and Orencia on hold
# Morbid obesity BMI 42
# History of nephrolithiasis
# Ex Smoker
# DVT prophylaxis- Lovenox stopped due to hemoptysis
# DNR
D/W RN at bed side
D/W Daughter - Updated
Patient is on Lasix 20 mg 3 times a week per daughter which is not on med list. We will start that today
Anticipated Discharge: 24 - 48 hours
Subjective/Interval History
-
Date of Service: October 17, 2024
Objective Data
-
Labs:
Laboratory Results
10/17/24
04:50
WBC 7.1
Hgb 12.7
Hct 37.9
Plt Count 140
Sodium 137
Potassium 3.6
Chloride 104
Carbon Dioxide 24
BUN 20 H
Creatinine 0.9
Glucose 124 H
Calcium 8.3 L
Vital Signs:
Vital Signs
Temp Pulse Resp BP Pulse Ox
98.8 F 73 20 139/71 91
10/17/24 08:10 10/17/24 08:10 10/17/24 08:10 10/17/24 08:10 10/17/24 08:11
I&O
10/16/24 10/17/24 10/18/24
06:59 06:59 06:59
Intake Total 1530 / 1530 1380 / 1380
Output Total 0 / 0
Balance 1530 / 1530 1380 / 1380
[2024-10-17] MEDS: ZOFRAN 4 MG IV (10:46)
[2024-10-17] MEDS: NSS (PRESERVATIVE FREE) 10 ML IV (10:47)
[2024-10-17] MEDS: PROTONIX IV 40 MG IV (10:47)
--- NOTE | 2024-10-17 11:21 | W.PN.PUL3 ---
Today's Communication / Plan
-
Still on 4LNC, will need home O2 eval
Change duonebs to MARISELA
Encouraged further OOB as tolerated, ambulation
Diuresis trial per team
Assessment
-
Patient is a very pleasant 79-year-old female who presented to the emergency room for cough and shortness of breath. Patient has known history of rheumatoid arthritis on immunosuppression with methotrexate, hydroxychloroquine and Orencia shots
monthly. Patient reports that about 3 weeks ago she developed an upper respiratory infection where she developed a runny nose mild sore throat followed by cough. She reports that her symptoms improved transiently and have not fully resolved over
the last 3 weeks. She lives in an independent facility and does report exposure to sick contacts. Over the last few days she feels that she has been coughing more and bringing up puri-colored sputum. Also reports intermittent wheezing. Cough
tends to be a little more at nighttime per patient. No pleuritic discomfort, no chest pain reported. Patient went for her monthly Orencia infusion yesterday and was referred to urgent care in view of her cough and not feeling well. Patient
reportedly was noted to be hypoxic at urgent care facility, 88% on room air.
Patient was subsequently sent to emergency room where x-ray was suggestive of multifocal infiltrates concerning for pneumonia. Patient was admitted to the hospitalist service. This morning she had a trace amount of hemoptysis and pulmonary
consultation was requested for further input.
Acute hypoxic respiratory failure.
Multifocal infiltrates, suspect pneumonia.
Trace hemoptysis.
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
History of smoking, episodic wheezing, ?underlying COPD
Rheumatoid arthritis
Essential hypertension
Intracranial aneurysm status post bleed
Lumbar spinal fusion, lumbar screws and ulisses placements
OA status post left hip arthroplasty
Morbid obesity, BMI 42
Depression
Thyroid nodule
Appendectomy
Adm @ [facility]: Kidney Stones 2022
Plan
Remains on 4L NC, not known to be on home O2
Wean as tolerated
Needs home O2 eval
This appears to be related to multifocal pulmonary infiltrates noted on chest x-ray
Continue O2 support as needed to keep sats above 90 to 92%
CT chest with contrast without evidence of PE
BNP elevated at 680, check echocardiogram to evaluate for CHF and pulmonary hypertension--stable findings
Influenza A, B screen negative. MRSA screen pending. Legionella and strep pneumo antigen negative.
Respiratory cultures and Gram stain for sputum pending. COVID-19 screen negative.
Procalcitonin is less than 0.05 (patient is immunocompromised however). Patient is afebrile, Normal WBC count of 9.5.
Continue Rocephin and Doxycycline as ordered
Follow-up on sputum cultures
Repeat CXR this AM not significantly changed
Patient is immunocompromised with methotrexate and Orencia, if any clinical worsening, will need bronchoscopy with BAL to rule out any opportunistic infection
Patient is on Orencia, Abatacept, which also can cause pneumonitis, medication on hold, she did not receive the scheduled dose on 10/14, essentially last dose was about a month ago
Hold methotrexate also, continue Plaquenil 200 mg twice daily
Mass like consolidative opacity in LLL will need follow up imaging in 6-8 weeks, and if persists, will need Bronchoscopy and Biopsy.
Will arrange out patient follow up with Pulmonary clinic.
Hemoptysis is likely in the setting of underlying pulmonary infection. Patient is not on any blood thinners.
Discontinue s.c. Lovenox, ordered for DVT prophylaxis, start SCDs instead
Improving, continue to quantify
Patient has 37-[id number] smoking history, she might have some underlying COPD especially with the reported history of episodic wheezing
Start DuoNebs on an as-needed basis
Patient will need full pulmonary function testing and 6-minute walk test as outpatient for further evaluation.
Will arrange outpatient follow-up in pulmonary clinic after discharge
Data:
CXR 10/2024: Small patchy right lower lobe opacity and questionable small patchy right midlung opacity, at least suspicious for pneumonia/pneumonitis.
CT-PE 10/2024: -No CT evidence for pulmonary embolism
-Widespread pneumonia in the left lung. There is also evidence for pneumonia at the right lung base
-Additional more masslike opacities in the left lower lobe and in the posterior right upper lobe. Follow-up CT after appropriate medical therapy is recommended. If these opacities persist, additional evaluation may be necessary (such as with PET/CT
and/or biopsy)
-3 mm nodule in the right upper lobe also noted.
ECHO 10/15/24- 1. Left ventricle: Normal size and function with an estimated ejection fraction of 60-65%. Stage I diastolic dysfunction
2. Right ventricle: Normal
3. Atria: Normal
4. Mitral valve: Trace mitral regurgitation.
5. Aortic valve: Trileaflet. No aortic stenosis or aortic insufficiency
6. Tricuspid valve: Mild tricuspid regurgitation with estimated pulmonary artery systolic pressures of 37 mmHg
7. No significant change when compared to the most recent echocardiogram from 11/14/2023
ECHO 11/2023: Normal left ventricular size, wall thickness and systolic function. No regional wall motion abnormalities are seen. LV ejection fraction is estimated at 60 to 65%.
Mildly dilated left atrium. Indexed LA volume is mildly abnormal (35-41 mL/m2). Mild tricuspid regurgitation. Estimated pulmonary artery pressure of 35-40 mmHg.
Total time spent on this consultation/encounter _41___ minutes which includes review of history, physical exam, medications, laboratory data, personal review of imaging, extensive review of outpatient records, discussion with care team and
respiratory therapy.
Subjective Data
-
Date of Service:
Date of Service: October 17, 2024
Chief Complaint: Pulmonary Follow Up
Subjective:
No new complaints, ambulating more
Still remains on 4L
Objective Data
Data Reviewed
Vital Signs / I&O / Oxygen:
Vital Signs
Temp Pulse Resp BP Pulse Ox
98.8 F 73 20 139/71 91
10/17/24 08:10 10/17/24 08:10 10/17/24 08:10 10/17/24 08:10 10/17/24 08:11
Intake and Output
10/16/24 10/17/24 10/18/24
06:59 06:59 06:59
Intake Total 1530 / 1530 1380 / 1380
Output Total 0 / 0
Balance 1530 / 1530 1380 / 1380
SaO2 91
Nasal Cannula flow liters per 4
minute
Physical Exam
General: Comfortable and Other (NAD)
HEENT: Normocephalic, Anicteric and Moist Mucous Membranes
Cardiovascular: S1-S2 and Regular Rhythm
Respiratory: Clear and Non-Labored Respirations
GI: Soft, Non Distended and Non Tender
Neurology: Awake, Alert, Oriented and No Motor Deficits
Skin: Warm, Dry and Good Color
Labs/Micro/Reports
Lab Data
10/17/24 04:50
10/17/24 04:50
Microbiology
10/15/24 18:28 Sputum Respiratory Culture - Preliminary
Usual Respiratory Andreea
10/15/24 18:28 Sputum Gram Stain - Preliminary
10/14/24 21:19 Nose MRSA Screen - Final
Staph aureus MRSA
10/15/24 16:12 Nasalpharynx Influenza Type A (PCR) - Final
Not Detected
10/15/24 16:12 Nasalpharynx Influenza Type A (H1) (PCR) - Final
Not Detected
10/15/24 16:12 Nasalpharynx Influenza Type A (H3) (PCR) - Final
Not Detected
10/15/24 16:12 Nasalpharynx Influenza Type B (PCR) - Final
Not Detected
10/15/24 16:12 Nasalpharynx Resp Syncytial Virus Type A (PCR) - Final
Not Detected
10/15/24 16:12 Nasalpharynx Resp Syncytial Virus Type B (PCR) - Final
Not Detected
10/15/24 16:12 Nasalpharynx Adenovirus DNA (PCR) - Final
Not Detected
10/15/24 16:12 Nasalpharynx Human Metapneumovirus (PCR) - Final
Not Detected
10/15/24 16:12 Nasalpharynx Parainfluenza Virus Type 1 (PCR) - Final
Not Detected
10/15/24 16:12 Nasalpharynx Parainfluenza Virus Type 2 (PCR) - Final
Not Detected
10/15/24 16:12 Nasalpharynx Parainfluenza Virus Type 3 (PCR) - Final
Not Detected
10/15/24 16:12 Nasalpharynx Parainfluenza Virus Type 4 - Final
Not Detected
10/15/24 16:12 Nasalpharynx Rhinovirus (PCR) - Final
Not Detected
10/15/24 11:52 Sputum Respiratory Culture - Final
10/15/24 11:52 Sputum Gram Stain - Final
10/15/24 02:31 Urine Legionella Urinary Antigen - Final
Negative for Legionella pneumophila Serogroup 1 antigen.
A negative result does not rule out the possiblity of
Legionella infection due to other serogroups or species of
Legionella. Clinical correlation is recommended.
10/15/24 02:31 Urine Streptococcus pneumoniae Antigen (M - Final
Negative for Streptococcus pneumoniae antigen.
A negative result does not exclude infection with
Streptococcus pneumoniae. Clinical correlation is
recommended.
10/14/24 14:33 Nasal Swab Influenza Types A & B (ALVIN) - Final
Negative for Influenza A & B, NAAT
Negative results must be combined with clinical observations
and patient history.
Nucleic Acid Amplification test (NAAT)performed on the
[employer] platform.
[2024-10-17] MEDS: LASIX 20 MG PO (12:09)
[2024-10-17] MEDS: KCL 20 MEQ PO (12:09)
[2024-10-17 15:20] VITALS: BP 130/68
[2024-10-17] MEDS: DUONEB 3 ML INH ×2 (15:23→19:26)
[2024-10-17] MEDS: TOPROL XL 25 MG PO (17:45)
[2024-10-17] MEDS: ZOLOFT 50 MG PO (17:46)
[2024-10-17] MEDS: STERILE WATER FOR INJECTION 20 ML IV (17:48)
[2024-10-17] MEDS: LIPITOR 20 MG PO (17:48)
[2024-10-17] MEDS: ROCEPHIN 2000 MG IV (17:49)
[2024-10-17 23:15] VITALS: BP 138/65
[2024-10-18] MEDS: SYNTHROID 25 MCG PO (06:12)
[2024-10-18] MEDS: TYLENOL 650 MG PO (06:12)
[2024-10-18 06:25] LABS: Hematocrit 43.2 % (37.0-47.0); Hemoglobin 14.3 g/dL (12.0-16.0); Mean Corp Hgb Conc. 33.1 g/dL (33.0-37.0); Mean Corpuscular Hgb 31.2 pg (27.0-31.0); Mean Corpuscular Volume 94.3 fL (81.0-99.0); Mean Platelet Volume 11.4 fL (7.4-10.4); Platelet Count 165 10^3/uL (130-400); Red Blood Cell Count 4.58 10^6/uL (4.20-5.40); White Blood Cell Count 7.7 10^3/uL (4.8-10.8)
[2024-10-18 06:51] LABS: Blood Urea Nitrogen 22 mg/dl (7-17); Calcium 8.9 mg/dl (8.4-10.2); Carbon Dioxide 27 mmol/L (22-30); Chloride 103 mmol/L (98-107); Estimated Creatinine Clearance 50 ml/min; Glucose 107 mg/dl (70-99); Magnesium 1.8 mg/dl (1.6-2.3); Potassium 4.5 mmol/L (3.5-5.1); Sodium 140 mmol/L (135-145); eGFR 51.75
[2024-10-18 07:12] VITALS: BP 135/63
[2024-10-18] MEDS: DUONEB 3 ML INH ×4 (08:04→20:56)
[2024-10-18] MEDS: FOLVITE 1 MG PO (09:00)
[2024-10-18] MEDS: WELLBUTRIN SR (12 hour sustained release) 150 MG PO ×2 (09:00→21:17)
[2024-10-18] MEDS: PLAQUENIL 200 MG PO ×2 (09:00→21:17)
[2024-10-18] MEDS: VIBRAMYCIN 100 MG PO ×2 (09:00→21:17)
[2024-10-18] MEDS: MUCINEX 600 MG PO ×2 (09:00→21:17)
[2024-10-18] MEDS: PEPCID 20 MG PO (09:01)
[2024-10-18] MEDS: DESENEX/MITRAZOL/ZEASORB 1 APPLIC TOPICAL ×2 (09:01→21:17)
[2024-10-18 09:40] VITALS: O2SAT 95
--- NOTE | 2024-10-18 09:47 | W.PN.HOSP.TC ---
Today's Communication/Plan
-
Home O2 eval
? Discharge
Assessment / Plan
Assessment / Plan
Echo 10/15/2024-LV size and function. EF 60 to 65%. Stage I diastolic dysfunction. Trace . Mild TR
10/15/24-CT- No CT evidence for pulmonary embolism.Widespread pneumonia in the left lung. There is also evidence for pneumonia at the right lung base. Masslike opacities in the left lower lobe and in the posterior right upper lobe.3 mm nodule in the
right upper lobe also noted.
CVS: S1-S2 normal
Chest: rales left
Abdomen: Soft, NT / Bowel sounds present
Extremities: No edema
# Acute hypoxemic respiratory insufficiency due to right lower lobe pneumonia versus pneumonitis:
-Immunocompromised due to being on methotrexate and Orencia for rheumatoid arthritis
-Hemoptysis resolved.
-Afebrile
-Currently Off O2
-COVID/flu/Legionella/strep negative
-Currently Rocephin/Doxy
-Procal NEG
-Sputum cultures pending, influenza negative, COVID-negative
-Respiratory viral panel negative, Legionella and strep pneumonia negative.
-Pulm following.
# MRSA Screen positive
# Cystic mass in the upper mid right kidney measuring at least 3.4 cm -OP Work up discussed with daughter.
# Mild thrombocytopenia-Resolved
# WALTER -Resolved
# H/O spontaneous aneurysmal bleed s/p clipping 2014
# Hypothyroidism: cont Levoxyl
# Hypertension-continue metoprolol
# Hyperlipidemia: cont statin
# Depression: cont Zoloft/Wellbutrin
# RA: cont Plaquenil, MTX and Orencia on hold
# Morbid obesity BMI 42
# History of nephrolithiasis
# Ex Smoker
# DVT prophylaxis- Lovenox to be restarted
# DNR
D/W RN at bed side
D/W Daughter - Updated 10/17/24
Patient is on Lasix 20 mg 3 times a week per daughter which is not on med list, started yesterday
Called Man to see what baseline creat is and also if pt has had Pneumonia vaccine . Pt will call her previous PCP from [place] who she was following till Jul 2023.
Man says pt is independent they wont have information.
Our system says she has had Pneumovax in 2016
Her creat was 1.1 in 2022, may be this is her baseline?
Left message for PCP Brii Burciaga [phone]
Will verify if PCP office calls back.
Anticipated Discharge: Within 24 hours
Subjective/Interval History
-
Date of Service: October 18, 2024
Objective Data
-
Labs:
Laboratory Results
10/18/24
05:51
WBC 7.7
Hgb 14.3
Hct 43.2
Plt Count 165
Sodium 140
Potassium 4.5
Chloride 103
Carbon Dioxide 27
BUN 22 H
Creatinine 1.1 H
Glucose 107 H
Calcium 8.9
Vital Signs:
Vital Signs
Temp Pulse Resp BP Pulse Ox
97.9 F 84 15 135/63 91
10/18/24 07:12 10/18/24 08:05 10/18/24 08:05 10/18/24 07:12 10/18/24 09:09
I&O
10/17/24 10/18/24 10/19/24
06:59 06:59 06:59
Intake Total 1380 / 1380 1080 / 1080
Output Total 0 / 0
Balance 1380 / 1380 1080 / 1080
--- NOTE | 2024-10-18 11:19 | RESPNOTE ---
Room air resting - 86%
Room air ambulating - 80%
3L needed to maintain > 88% at rest
Ambulation on 3L - 93%
Distance walked: 150 ft
--- NOTE | 2024-10-18 11:41 | W.PN.UPDATE ---
Update Note
Progress Note Update
PCP office called back they do not have any records of her vaccine they started caring for her since July 2023. She had RSV vaccine in July 2023.
The records indicate that patient's creatinine is 1.2 in September 2024.
[2024-10-18 11:53] LABS: Vitamin D, 25-OH*** 36.7 ng/mL (30-80)
--- NOTE | 2024-10-18 13:42 | W.PN.PUL3 ---
Today's Communication / Plan
-
Continue current antibiotic therapy-hopefully can transition to oral antibiotics in the next 24 hours and complete 7 to 10 days.
Continue nebulizers while in the hospital to aid with secretion clearance
Oxygen appointment patient will need to be set up 2 L at rest and 3 L with ambulation
Outpatient pulmonary follow-up for radiographic documentation of clearance of infiltrate/nodular opacities.
hopefully ready for DC in AM 10/19/2024
Will follow
Assessment
-
Patient is a very pleasant 79-year-old female who presented to the emergency room for cough and shortness of breath. Patient has known history of rheumatoid arthritis on immunosuppression with methotrexate, hydroxychloroquine and Orencia shots
monthly. Patient reports that about 3 weeks ago she developed an upper respiratory infection where she developed a runny nose mild sore throat followed by cough. She reports that her symptoms improved transiently and have not fully resolved over
the last 3 weeks. She lives in an independent facility and does report exposure to sick contacts. Over the last few days she feels that she has been coughing more and bringing up puri-colored sputum. Also reports intermittent wheezing. Cough
tends to be a little more at nighttime per patient. No pleuritic discomfort, no chest pain reported. Patient went for her monthly Orencia infusion yesterday and was referred to urgent care in view of her cough and not feeling well. Patient
reportedly was noted to be hypoxic at urgent care facility, 88% on room air.
Patient was subsequently sent to emergency room where x-ray was suggestive of multifocal infiltrates concerning for pneumonia. Patient was admitted to the hospitalist service. This morning she had a trace amount of hemoptysis and pulmonary
consultation was requested for further input.
Acute hypoxic respiratory failure.
Multifocal infiltrates, suspect pneumonia.
Trace hemoptysis.
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
History of smoking, episodic wheezing, ?underlying COPD
Rheumatoid arthritis
Essential hypertension
Intracranial aneurysm status post bleed
Lumbar spinal fusion, lumbar screws and ulisses placements
OA status post left hip arthroplasty
Morbid obesity, BMI 42
Depression
Thyroid nodule
Appendectomy
Adm @ [facility]: Kidney Stones 2022
Plan
Slowly clinically improving.
Home oxygen assessment 86% on room air
80% with ambulation, required up to 3 L supplemental oxygen to maintain pulse ox 93%. Ambulated 450 feet.
Will need to set up oxygen prior to discharge
Multifocal pulmonary infiltrates noted on chest x-ray
Afebrile without leukocytosis.
Continue O2 support as needed to keep sats above 90 to 92%
CT chest with contrast without evidence of PE
BNP elevated at 680, check echocardiogram to evaluate for CHF and pulmonary hypertension--stable findings
Influenza A, B screen negative. MRSA screen pending. Legionella and strep pneumo antigen negative.
Respiratory cultures and Gram stain for sputum pending. COVID-19 screen negative.
Procalcitonin is less than 0.05 (patient is immunocompromised however). Patient is afebrile, Normal WBC count of 9.5.
Positive MRSA screening
Continue Rocephin and Doxycycline as ordered-hopefully can transition to oral antibiotics and complete 7 to 10 days of antibiotics.
Follow-up on sputum cultures
Patient is immunocompromised with methotrexate and Orencia, if any clinical worsening, will need bronchoscopy with BAL to rule out any opportunistic infection-holding for now. Seems to be responding to antibiotics.
Patient is on Orencia, Abatacept, which also can cause pneumonitis, medication on hold, she did not receive the scheduled dose on 10/14, essentially last dose was about a month ago
Hold methotrexate also, continue Plaquenil 200 mg twice daily
Patient understands that she will need radiographic follow-up upon discharge with a CAT scan. Rule out opportunistic infection if does not respond to oral antibiotics.
Mass like consolidative opacity in LLL will need follow up imaging in 6-8 weeks, and if persists, will need Bronchoscopy and Biopsy.
Will arrange out patient follow up with Pulmonary clinic.
Hemoptysis is likely in the setting of underlying pulmonary infection. Patient is not on any blood thinners.
Discontinue s.c. Lovenox, ordered for DVT prophylaxis, start SCDs instead
Improving, continue to quantify
Patient has [id number] smoking history, she might have some underlying COPD especially with the reported history of episodic wheezing
Continue DuoNebs on an as-needed basis-while in the hospital.
Patient will need full pulmonary function testing and 6-minute walk test as outpatient for further evaluation.
Will arrange outpatient follow-up in pulmonary clinic after discharge
-
Hopefully discharge in the next 24 hours.
Data:
CXR 10/2024: Small patchy right lower lobe opacity and questionable small patchy right midlung opacity, at least suspicious for pneumonia/pneumonitis.
CT-PE 10/2024: -No CT evidence for pulmonary embolism
-Widespread pneumonia in the left lung. There is also evidence for pneumonia at the right lung base
-Additional more masslike opacities in the left lower lobe and in the posterior right upper lobe. Follow-up CT after appropriate medical therapy is recommended. If these opacities persist, additional evaluation may be necessary (such as with PET/CT
and/or biopsy)
-3 mm nodule in the right upper lobe also noted.
ECHO 10/15/24- 1. Left ventricle: Normal size and function with an estimated ejection fraction of 60-65%. Stage I diastolic dysfunction
2. Right ventricle: Normal
3. Atria: Normal
4. Mitral valve: Trace mitral regurgitation.
5. Aortic valve: Trileaflet. No aortic stenosis or aortic insufficiency
6. Tricuspid valve: Mild tricuspid regurgitation with estimated pulmonary artery systolic pressures of 37 mmHg
7. No significant change when compared to the most recent echocardiogram from 11/14/2023
ECHO 11/2023: Normal left ventricular size, wall thickness and systolic function. No regional wall motion abnormalities are seen. LV ejection fraction is estimated at 60 to 65%.
Mildly dilated left atrium. Indexed LA volume is mildly abnormal (35-41 mL/m2). Mild tricuspid regurgitation. Estimated pulmonary artery pressure of 35-40 mmHg.
Subjective Data
-
Date of Service:
Date of Service: October 18, 2024
Chief Complaint: Pulmonary Follow Up (Pneumonia)
Subjective:
Continues to report coughing
Denies hemoptysis
Overall feels better
Review of Systems
General: Fever (n) and Chills (n)
Cardiopulmonary: Dyspnea (None at rest)
Objective Data
Data Reviewed
Vital Signs / I&O / Oxygen:
Vital Signs
Temp Pulse Resp BP Pulse Ox
97.9 F 84 15 135/63 91
10/18/24 07:12 10/18/24 08:05 10/18/24 08:05 10/18/24 07:12 10/18/24 09:09
Intake and Output
10/17/24 10/18/24 10/19/24
06:59 06:59 06:59
Intake Total 1380 / 1380 1080 / 1080
Output Total 0 / 0
Balance 1380 / 1380 1080 / 1080
SaO2 91
Nasal Cannula flow liters per 2
minute
Physical Exam
General: Comfortable and Other (NAD)
HEENT: Normocephalic, Anicteric and Moist Mucous Membranes
Cardiovascular: S1-S2 and Regular Rhythm
Respiratory: Clear and Non-Labored Respirations
GI: Soft, Non Distended and Non Tender
Neurology: Awake, Alert, Oriented and No Motor Deficits
Skin: Warm, Dry and Good Color
Labs/Micro/Reports
Lab Data
10/18/24 05:51
10/18/24 05:51
Microbiology
10/15/24 18:28 Sputum Respiratory Culture - Final
Usual Respiratory Andreea
10/15/24 18:28 Sputum Gram Stain - Final
10/14/24 21:19 Nose MRSA Screen - Final
Staph aureus MRSA
10/15/24 16:12 Nasalpharynx Influenza Type A (PCR) - Final
Not Detected
10/15/24 16:12 Nasalpharynx Influenza Type A (H1) (PCR) - Final
Not Detected
10/15/24 16:12 Nasalpharynx Influenza Type A (H3) (PCR) - Final
Not Detected
10/15/24 16:12 Nasalpharynx Influenza Type B (PCR) - Final
Not Detected
10/15/24 16:12 Nasalpharynx Resp Syncytial Virus Type A (PCR) - Final
Not Detected
10/15/24 16:12 Nasalpharynx Resp Syncytial Virus Type B (PCR) - Final
Not Detected
10/15/24 16:12 Nasalpharynx Adenovirus DNA (PCR) - Final
Not Detected
10/15/24 16:12 Nasalpharynx Human Metapneumovirus (PCR) - Final
Not Detected
10/15/24 16:12 Nasalpharynx Parainfluenza Virus Type 1 (PCR) - Final
Not Detected
10/15/24 16:12 Nasalpharynx Parainfluenza Virus Type 2 (PCR) - Final
Not Detected
10/15/24 16:12 Nasalpharynx Parainfluenza Virus Type 3 (PCR) - Final
Not Detected
10/15/24 16:12 Nasalpharynx Parainfluenza Virus Type 4 - Final
Not Detected
10/15/24 16:12 Nasalpharynx Rhinovirus (PCR) - Final
Not Detected
10/15/24 11:52 Sputum Respiratory Culture - Final
10/15/24 11:52 Sputum Gram Stain - Final
--- NOTE | 2024-10-18 14:33 | CM ---
Addendum entered by Theresa Alicia 10/18/24 16:57:
Clinicals, face sheet, Rx faxed to Bl[facility] at [facility] for oxygen and nebulizer
Portable to be delivered to pts room in AM; concentrator and nebulizer to be delivered tomorrow to pts home
Original Note:
Chart reviewed
Home O2 assessment today - will need home O2 at d/c. PT recs - HH
Spoke with pts daughter - has no preference to agency for HH or O2; requesting [facility] preferred provider
Called [facility] [phone], LM on VM of Wellness Office requesting return call to discuss d/c needs
Plan - home with home O2 and HH
[2024-10-18 15:22] VITALS: BP 120/70
[2024-10-18] MEDS: LIPITOR 20 MG PO (17:12)
[2024-10-18] MEDS: ZOLOFT 50 MG PO (17:12)
[2024-10-18] MEDS: TOPROL XL 25 MG PO (17:12)
[2024-10-18] MEDS: ROCEPHIN 2000 MG IV (17:13)
[2024-10-18] MEDS: STERILE WATER FOR INJECTION 20 ML IV (17:14)
[2024-10-18 23:29] VITALS: BP 139/65
[2024-10-19] MEDS: SYNTHROID 25 MCG PO (05:44)
[2024-10-19] MEDS: DUONEB 3 ML INH ×3 (07:05→15:20)
[2024-10-19 07:10] VITALS: BP 132/61
[2024-10-19] MEDS: WELLBUTRIN SR (12 hour sustained release) 150 MG PO (08:13)
[2024-10-19] MEDS: DESENEX/MITRAZOL/ZEASORB TOPICAL (08:13)
[2024-10-19] MEDS: MUCINEX 600 MG PO (08:14)
[2024-10-19] MEDS: PEPCID 20 MG PO (08:14)
[2024-10-19] MEDS: FOLVITE 1 MG PO (08:14)
[2024-10-19] MEDS: PLAQUENIL 200 MG PO (08:14)
[2024-10-19] MEDS: VIBRAMYCIN 100 MG PO (08:14)
[2024-10-19 09:43] LABS: Blood Urea Nitrogen 24 mg/dl (7-17); Calcium 8.7 mg/dl (8.4-10.2); Carbon Dioxide 22 mmol/L (22-30); Chloride 106 mmol/L (98-107); Estimated Creatinine Clearance 62 ml/min; Glucose 81 mg/dl (70-99); Potassium 4.3 mmol/L (3.5-5.1); Sodium 137 mmol/L (135-145); eGFR > 60.00
--- NOTE | 2024-10-19 10:53 | CON.ID ---
Consultation
-
Date/Time Consultation Requested: October 19, 2024 0818
Date/Time Consultation Performed: October 19, 2024 1100
Requesting Provider: Dr. Hector Rehman
Performing Provider: Dr. Binta Randall
Reason for Consultation: Hypoxia
Chief Complaint / Past History
Chief Complaint
Shortness of breath
History of Present Illness
79-year-old female with history of hypothyroidism, rheumatoid arthritis on methotrexate, Plaquenil, biologic since 2014 with most recent change of biologic to Orencia July 2023 who presented to the hospital October 14 due to hypoxia. Patient
reports that she has been feeling short of breath for the past 3 to 4 months. Shortness of breath described as orthopnea at night. She then developed lower extremity edema. Her PCP prescribed diuretic with improvement of the edema,BUT NOT the
shortness of breath. No dyspnea on exertion. No cough at the time , + wheezing. 4 weeks ago she developed upper respiratory infection symptoms with rhinorrhea with clear output and dry cough. Since then she has persistent symptoms of the
rhinorrhea and cough. Also with increased shortness of breath. No fevers or chills. On October 14 she presented to urgent care and she was noted to be hypoxic 88% on room air. Patient therefore sent to the ER. White count normal. No fever.
COVID-negative. Influenza negative. Chest x-ray shows basilar opacities. She was started on ceftriaxone and azithromycin. The next day CT PE protocol showed no embolus, positive left lung opacities, right lower lobe opacity, masslike lesions
left lower and right upper lobes. October 15 procalcitonin negative. Respiratory viral panel negative. TTE EF 60 to 65%, stage I diastolic dysfunction. Currently remains on 2 L of nasal cannula. Had nausea and emesis x 1 yesterday possibly due to
the doxycycline. Otherwise no abdominal pain. No diarrhea. No urinary symptoms. No chest pain. No recent travel. TB screen has always been negative.
Past History
Additional Past Medical History:
Rheumatoid arthritis on methotrexate, Plaquenil, monthly Orencia
HLD
Hypothyroidism
Depression
Hx intracranial aneurysm bleed s/p craniotomy
Class III obesity BMI 42
Left total hip replacement
Lumbar spinal fusion with hardware
Appendectomy
Allergy History:
No Known Allergies Allergy (Verified 10/14/24 16:23)
Medications Reviewed: Yes
Current Antibiotics:
Ceftriaxone day 6
Doxycycline day 6
Social History
Tobacco: Former Smoker
Alcohol: None
Drug: None
Personal: Single
Living: Other ([facility] independent living)
Family History
Family History: Not Pertinent
Review of Systems
Review of Systems
General: Negative Fever or Chills
HEENT: Negative Headache or Pharyngitis
Respiratory: Dyspnea and Cough; Negative Sputum Production
Gasteroenterology: Negative Diarrhea
Genital / Urological: Negative Dysuria or Flank Pain
Skin / Hair / Nails: Negative Rash
Neurological: Negative Headache or Dizziness
All systems: All other systems were reviewed and were negative
Vital Signs
Temp Pulse Resp BP Pulse Ox
98.7 F 75 16 132/61 93
10/19/24 07:10 10/19/24 07:10 10/19/24 07:10 10/19/24 07:10 10/19/24 07:10
Physical Exam
Physical Exam
Constitutional: No Acute Distress, Comfortable and Non-toxic
Head: Other (No frontal or max or sinus tenderness)
Eyes: Sclera Anicteric and Erythema
Cardiovascular: Regular Rate and S1/S2
Pulmonary: Rales (Crackles left lung and right base)
Gastrointestinal: Soft, Non Tender, Non Distended and Normal Bowel Sounds
Genito-Urinary: Negative Suprapubic Tenderness or CVA Tenderness
Extremities: Negative Edema
Musculoskeletal: Negative Spinal Tenderness
Neurological: AO x 3
Lab / Diagnostic Study Results
10/18/24 05:51
10/19/24 05:43
Abs Immat Gran (auto) 0.0 10^3/uL (0-0.05) 10/14/24 14:33
Absolute Neuts (auto) 6.6 10^3/uL (1.4-6.5) H 10/14/24 14:33
Absolute Lymphs (auto) 1.3 10^3/uL (1.2-3.4) 10/14/24 14:33
Absolute Monos (auto) 1.1 10^3/uL (0.1-0.6) H 10/14/24 14:33
Absolute Basos (auto) 0.0 10^3/uL (0-0.2) 10/14/24 14:33
Immature Gran % 0.2 % (0-0.5) 10/14/24 14:33
Neutrophils % 71.9 % (42.2-75.2) 10/14/24 14:33
Lymphocytes % 14.6 % (20.5-51.1) L 10/14/24 14:33
Monocytes % 12.2 % (1.7-9.3) H 10/14/24 14:33
Eosinophils % 0.7 % (0-6) 10/14/24 14:33
Basophils % 0.4 % (0-2) 10/14/24 14:33
Procalcitonin < 0.05 ng/ml (0.0-0.25) 10/15/24 09:21
Microbiology Results
Micro:
10/15/24 18:28 Respiratory Culture - Final
Sputum Usual Respiratory Andreea
Gram Stain - Final
10/14/24 21:19 MRSA Screen - Final
Nose Staph aureus MRSA
10/15/24 16:12 Influenza Type A (PCR) - Final
Nasalpharynx Not Detected
Influenza Type A (H1) (PCR) - Final
Not Detected
Influenza Type A (H3) (PCR) - Final
Not Detected
Influenza Type B (PCR) - Final
Not Detected
Resp Syncytial Virus Type A (PCR) - Final
Not Detected
Resp Syncytial Virus Type B (PCR) - Final
Not Detected
Adenovirus DNA (PCR) - Final
Not Detected
Human Metapneumovirus (PCR) - Final
Not Detected
Parainfluenza Virus Type 1 (PCR) - Final
Not Detected
Parainfluenza Virus Type 2 (PCR) - Final
Not Detected
Parainfluenza Virus Type 3 (PCR) - Final
Not Detected
Parainfluenza Virus Type 4 - Final
Not Detected
Rhinovirus (PCR) - Final
Not Detected
10/15/24 11:52 Respiratory Culture - Final
Sputum Gram Stain - Final
10/15/24 02:31 Legionella Urinary Antigen - Final
Urine Negative for Legionella pneumophila Serogroup 1 antigen.
A negative result does not rule out the possiblity of
Legionella infection due to other serogroups or species of
Legionella. Clinical correlation is recommended.
Streptococcus pneumoniae Antigen (M - Final
Negative for Streptococcus pneumoniae antigen.
A negative result does not exclude infection with
Streptococcus pneumoniae. Clinical correlation is
recommended.
10/14/24 14:33 Influenza Types A & B (ALVIN) - Final
Nasal Swab Negative for Influenza A & B, NAAT
Negative results must be combined with clinical observations
and patient history.
Nucleic Acid Amplification test (NAAT)performed on the
Devex platform.
10/15/[address]: No CT evidence for pulmonary embolism. Widespread pneumonia in the left lung. There is also evidence for pneumonia at the right lung base. Additional more masslike opacities in the left lower lobe and in the posterior right upper
lobe. Follow-up CT after appropriate medical therapy is recommended. If these opacities persist, additional evaluation may be necessary (such as with PET/CT and/or biopsy)
Assessment / Plan
# Acute hypoxemic respiratory insufficiency
# Pneumonitis. Abnormal CT: extensive heterogeneous opacity throughout the left lung, masslike opacities LLL, RUL.
# RA on MTX, Plaquenil, Orencia
- bacterial PNA ruled out with negative procalcitonin.
DC ceftriaxone/doxycyline (d6)
- COVID neg, Influenza neg, respiratory virus panel neg
- Possible other virus as source of current 4 weeks respiratory symptoms.
Supportive care.
- Regarding SOB x 2-4 months, consider drug-induced pneumonitis such as MTX.
MTX currently on hold.
- Repeat CT chest in few weeks. If no improvement, for bronch as per Pulmonary.
# Conditions [employer] P[employer]ER
Rheumatoid arthritis on methotrexate, Plaquenil, monthly Orencia
HLD
Hypothyroidism
Depression
Hx intracranial aneurysm bleed s/p craniotomy
Class III obesity BMI 42
Left total hip replacement
Lumbar spinal fusion with hardware
Appendectomy
Care Review
Plan reviewed with: Physician (Dr. bustillos)
--- NOTE | 2024-10-19 11:03 | CM ---
Addendum entered by Theresa Alicia 10/19/24 14:41:
Updated Donita at [facility] - pt discharging today with home O2 and [facility] will follow
Updated daughter - pt for discharge today. Will transport home
Addendum entered by Theresa Alicia 10/19/24 14:15:
Accepted by [facility] for HH needs
Plan - home with [facility] and home O2
f - [phone]
Addendum entered by Theresa Alicia 10/19/24 11:38:
Updated pts daughter regarding d/c plans.
Original Note:
Chart reviewed; met with pt
Portable Oxygen delivered to bedside this AM
Referral sent in [facility] for Home care needs - awaiting acceptance
Reviewed IMM with pt
Plan - anticipate home with HH and oxygen when medically ready
--- NOTE | 2024-10-19 11:31 | W.PN.PUL3 ---
Today's Communication / Plan
-
Discharged on oxygen supplementation
Antibiotics per infectious disease.
Outpatient pulmonary [id number] understands that she will need to follow closely.
Continue to hold methotrexate until fully recovered
Hopeful discharge today
Sign of
Assessment
-
Patient is a very pleasant 79-year-old female who presented to the emergency room for cough and shortness of breath. Patient has known history of rheumatoid arthritis on immunosuppression with methotrexate, hydroxychloroquine and Orencia shots
monthly. Patient reports that about 3 weeks ago she developed an upper respiratory infection where she developed a runny nose mild sore throat followed by cough. She reports that her symptoms improved transiently and have not fully resolved over
the last 3 weeks. She lives in an independent facility and does report exposure to sick contacts. Over the last few days she feels that she has been coughing more and bringing up puri-colored sputum. Also reports intermittent wheezing. Cough
tends to be a little more at nighttime per patient. No pleuritic discomfort, no chest pain reported. Patient went for her monthly Orencia infusion yesterday and was referred to urgent care in view of her cough and not feeling well. Patient
reportedly was noted to be hypoxic at urgent care facility, 88% on room air.
Patient was subsequently sent to emergency room where x-ray was suggestive of multifocal infiltrates concerning for pneumonia. Patient was admitted to the hospitalist service. This morning she had a trace amount of hemoptysis and pulmonary
consultation was requested for further input.
Acute hypoxic respiratory failure.
Multifocal infiltrates, suspect pneumonia.
Trace hemoptysis.
Conditions present [employer]
History of smoking, episodic wheezing, ?underlying COPD
Rheumatoid arthritis
Essential hypertension
Intracranial aneurysm status post bleed
Lumbar spinal fusion, lumbar screws and ulisses placements
OA status post left hip arthroplasty
Morbid obesity, BMI 42
Depression
Thyroid nodule
Appendectomy
Adm @ [facility]: Kidney Stones 2022
Plan
Clinically improved.
Home oxygen assessment 86% on room air
80% with ambulation, required up to 3 L supplemental oxygen to maintain pulse ox 93%. Ambulated 450 feet.
Will need to set up oxygen prior to discharge
Multifocal pulmonary infiltrates noted on chest x-ray
Afebrile without leukocytosis.
Continue O2 support as needed to keep sats above 90 to 92%
CT chest with contrast without evidence of PE
BNP elevated at 680, check echocardiogram to evaluate for CHF and pulmonary hypertension--stable findings
Influenza A, B screen negative. MRSA screen pending. Legionella and strep pneumo antigen negative.
Respiratory cultures and Gram stain normal respiratory aline.
COVID-19 screen negative.
Procalcitonin is less than 0.05 (patient is immunocompromised however). .
Patient is afebrile, no significant leukocytosis.
Positive MRSA screening
Continue Rocephin and Doxycycline as ordered-defer antibiotics to infectious disease.
-
Patient is immunocompromised with methotrexate and Orencia, if any clinical worsening, will need bronchoscopy with BAL to rule out any opportunistic infection-holding for now. Seems to be responding to antibiotics.
Patient is on Orencia, Abatacept, which also can cause pneumonitis, medication on hold, she did not receive the scheduled dose on 10/14, essentially last dose was about a month ago
Hold methotrexate until symptoms recover.
continue Plaquenil 200 mg twice daily
Patient understands that she will need radiographic follow-up upon discharge with a CAT scan. Rule out opportunistic infection if does not respond to oral antibiotics.
Mass like consolidative opacity in LLL will need follow up imaging in 6-8 weeks, and if persists, will need Bronchoscopy and Biopsy.
Will arrange out patient follow up with Pulmonary clinic.
If there is ongoing pneumonitis then further evaluation will be needed. Cannot rule out drug-induced pulmonary changes.
Hemoptysis is likely in the setting of underlying pulmonary infection. Patient is not on any blood thinners.
Discontinue s.c. Lovenox, ordered for DVT prophylaxis, start SCDs instead
Improving, continue to quantify
Patient has [id number] smoking history, she might have some underlying COPD especially with the reported history of episodic wheezing
Continue DuoNebs on an as-needed basis-while in the hospital.
Patient will need full pulmonary function testing and 6-minute walk test as outpatient for further evaluation.
Will arrange outpatient follow-up in pulmonary clinic after discharge
-
From my perspective okay to discharge home.
Outpatient pulmonary follow-up, information has been left in the chart.
Data:
CXR 10/2024: Small patchy right lower lobe opacity and questionable small patchy right midlung opacity, at least suspicious for pneumonia/pneumonitis.
CT-PE 10/2024: -No CT evidence for pulmonary embolism
-Widespread pneumonia in the left lung. There is also evidence for pneumonia at the right lung base
-Additional more masslike opacities in the left lower lobe and in the posterior right upper lobe. Follow-up CT after appropriate medical therapy is recommended. If these opacities persist, additional evaluation may be necessary (such as with PET/CT
and/or biopsy)
-3 mm nodule in the right upper lobe also noted.
ECHO 10/15/24- 1. Left ventricle: Normal size and function with an estimated ejection fraction of 60-65%. Stage I diastolic dysfunction
2. Right ventricle: Normal
3. Atria: Normal
4. Mitral valve: Trace mitral regurgitation.
5. Aortic valve: Trileaflet. No aortic stenosis or aortic insufficiency
6. Tricuspid valve: Mild tricuspid regurgitation with estimated pulmonary artery systolic pressures of 37 mmHg
7. No significant change when compared to the most recent echocardiogram from 11/14/2023
ECHO 11/2023: Normal left ventricular size, wall thickness and systolic function. No regional wall motion abnormalities are seen. LV ejection fraction is estimated at 60 to 65%.
Mildly dilated left atrium. Indexed LA volume is mildly abnormal (35-41 mL/m2). Mild tricuspid regurgitation. Estimated pulmonary artery pressure of 35-40 mmHg.
Subjective Data
-
Date of Service:
Date of Service: October 19, 2024
Chief Complaint: Pulmonary Follow Up (Pneumonia)
Subjective:
No new complaints
Denies increased phlegm production or hemoptysis
Review of Systems
Cardiopulmonary: Dyspnea (improved)
GI: Abdominal Pain (n) and Nausea (n)
Neuro: Headache (n)
Objective Data
Data Reviewed
Vital Signs / I&O / Oxygen:
Vital Signs
Temp Pulse Resp BP Pulse Ox
98.7 F 75 16 132/61 93
10/19/24 07:10 10/19/24 07:10 10/19/24 07:10 10/19/24 07:10 10/19/24 07:10
Intake and Output
10/18/24 10/19/24 10/20/24
06:59 06:59 06:59
Intake Total 1080 / 1080 1890 / 1890
Balance 1080 / 1080 1890 / 1890
SaO2 93
Nasal Cannula flow liters per 2.5
minute
Physical Exam
General: Comfortable and Other (NAD)
HEENT: Normocephalic, Anicteric and Moist Mucous Membranes
Cardiovascular: S1-S2 and Regular Rhythm
Respiratory: Clear and Non-Labored Respirations
GI: Soft, Non Distended and Non Tender
Neurology: Awake, Alert, Oriented and No Motor Deficits
Skin: Warm, Dry and Good Color
Labs/Micro/Reports
Lab Data
10/18/24 05:51
10/19/24 05:43
Microbiology
10/15/24 18:28 Sputum Respiratory Culture - Final
Usual Respiratory Aline
10/15/24 18:28 Sputum Gram Stain - Final
10/14/24 21:19 Nose MRSA Screen - Final
Staph aureus MRSA
--- NOTE | 2024-10-19 14:28 | W.PN.HOSP.TC ---
Today's Communication/Plan
-
Discharge
Assessment / Plan
Assessment / Plan
Echo 10/15/2024-LV size and function. EF 60 to 65%. Stage I diastolic dysfunction. Trace MR. Mild TR
10/15/24-CT- No CT evidence for pulmonary embolism.Widespread pneumonia in the left lung. There is also evidence for pneumonia at the right lung base. Masslike opacities in the left lower lobe and in the posterior right upper lobe.3 mm nodule in the
right upper lobe also noted.
CVS: S1-S2 normal
Chest: rales left
Abdomen: Soft, NT / Bowel sounds present
Extremities: No edema
# Acute hypoxemic respiratory insufficiency due to right lower lobe pneumonia versus pneumonitis:
-Immunocompromised due to being on methotrexate and Orencia for rheumatoid arthritis
-Hemoptysis resolved.
-Afebrile
-Currently Off O2
-COVID/flu/Legionella/strep negative
-Currently Rocephin/Doxy. Discontinued by infectious disease
-Procal NEG
-Sputum cultures pending, influenza negative, COVID-negative
-Respiratory viral panel negative, Legionella and strep pneumonia negative.
# MRSA Screen positive
# Cystic mass in the upper mid right kidney measuring at least 3.4 cm -OP Work up discussed with daughter.
# Mild thrombocytopenia-Resolved
# WALTER -Resolved
# H/O spontaneous aneurysmal bleed s/p clipping 2014
# Hypothyroidism: cont Levoxyl
# Hypertension-continue metoprolol
# Hyperlipidemia: cont statin
# Depression: cont Zoloft/Wellbutrin
# RA: cont Plaquenil, MTX and Orencia on hold
# Morbid obesity BMI 42
# History of nephrolithiasis
# Ex Smoker
# DVT prophylaxis- Lovenox to be restarted
# DNR
D/W RN
D/W Daughter - Updated 10/19/24
Discussed with pulmonary
Patient is on Lasix 20 mg 3 times a week per daughter which is not on med list, started yesterday
Called [facility] and PCP Brii Burciaga [phone]
I did not have any documentation regarding Pneumovax.
Our records say that patient has had it in 2017. I discussed with patient to follow-up with PCP and also to call PCP to see if she needs to get 1.
Infectious disease consultation appreciated. Per discussion pulmonary who wants antibiotics for 4 more days will be prescribed at discharge.
Daughter is aware that she patient needs to hold off on the methotrexate until repeat CT is done and also Orencia. She follows with Dr. Lieberman will send discharge summary dictation to Dr. Lieberman-will copy him.
Follow-up care including imaging discussed with the patient and daughter in detail. Daughter is a physician who works in [place] now.
More than 30 minutes spent in discharge including
Final examination of the patient
Summarizing hospital stay
Instructions for continuing care to all relevant caregivers
Preparation of discharge records, prescriptions, and referral forms
Total time spent (in minutes): 38 min
Anticipated Discharge: Today
Subjective/Interval History
-
Date of Service: October 19, 2024
Objective Data
-
Labs:
Laboratory Results
10/19/24
05:43
Sodium 137
Potassium 4.3
Chloride 106
Carbon Dioxide 22
BUN 24 H
Creatinine 0.9
Glucose 81
Calcium 8.7
Vital Signs:
Vital Signs
Temp Pulse Resp BP Pulse Ox
98.7 F 77 16 132/61 96
10/19/24 07:10 10/19/24 11:33 10/19/24 11:33 10/19/24 07:10 10/19/24 11:33
I&O
10/18/24 10/19/24 10/20/24
06:59 06:59 06:59
Intake Total 1080 / 1080 1890 / 1890
Balance 1080 / 1079
--- NOTE | 2024-10-19 14:31 | W.DS.TRANS ---
Addendum entered and electronically signed by Hector Rehman MD 10/19/24 14:49:
Dictation- [id number]
Original Note:
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
-
Discharge Instructions:
Discharge Diagnosis/Procedures Acute hypoxic respite insufficiency
Pneumonia/pneumonitis
MRSA screen positive
Cystic mass in the upper mid right kidney 3.4 cm
Acute kidney injury
History of aneurysmal bleed with clipping 2014
Hypothyroidism
Hypertension
Hyperlipidemia
Depression
Rheumatoid arthritis
Diet 2 Gram Sodium
Activity As tolerated
Driving Restrictions As prior to admission
Blood Work CBC, BMP 1 week
Other Services VN
Instructions:
Stand-Alone Forms:
Changes to Home Medications: Yes
Discharge Medications:
DC Medications w/original date entered in [employer]
atorvastatin 20 mg tablet 20 mg PO QPM High Cholesterol 05/24/23
bupropion HCl 150 mg tablet,12 hr sustained-release 150 mg PO BID Mental Health/Anxiety 05/24/23
cholecalciferol (vitamin D3) 25 mcg (1,000 unit) tablet (Vitamin D3) 25 mcg PO DAILY Supplement 05/24/23
docusate sodium 100 mg capsule 100 mg PO QPM Constipation 05/24/23
folic acid 1 mg tablet 1 mg PO DAILY Supplement 05/24/23
hydroxychloroquine 200 mg tablet (Plaquenil) 200 mg PO BID RHEUMATOID ARTHRITIS 05/24/23
levothyroxine 25 mcg tablet 25 mcg PO DAILY Thyroid 05/24/23
sertraline 50 mg tablet 50 mg PO QPM Mental Health/Anxiety 05/24/23
acetaminophen 325 mg tablet 650 mg (2 x 325 mg) PO Q4HPRN PRN mild pain #30 tabs 05/28/23
amoxicillin 875 mg-potassium clavulanate 125 mg tablet 1 tab PO Q12H Infection #8 tabs 10/19/24
famotidine 20 mg tablet 20 mg PO DAILY Gastrointestinal issue #30 tabs 10/19/24
furosemide 20 mg tablet (Lasix) 20 mg PO Q OTHER DAY Fluid retention/Swelling #20 tabs 10/19/24
guaifenesin 600 mg tablet, extended release 12 hr 600 mg PO Q12 Lung/breathing issues #10 tabs 10/19/24
ipratropium 0.5 mg-albuterol 3 mg (2.5 mg base)/3 mL nebulization soln 3 ml inhalation R QID Lung/breathing issues #90 mL 10/19/24
metoprolol succinate 25 mg tablet,extended release 24 hr 25 mg PO QPM Blood pressure #30 tabs 10/19/24
Home Medication Changes
new
Amoxicillin, famotidine, guaifenesin, ipratropium
Pending Results: No
[2024-10-19 16:11] VITALS: BP 135/76
== END 2024-10-19 16:06 | disposition home health service (06) | DRG 194 ==
LOC: 2 NORTH 19:47
PROVIDERS: Internal Medicine; ADMITTING PHYSICIAN Internal Medicine; ATTENDING PHYSICIAN Hospitalist; CONSULT PHYSICIAN Internal Medicine; CONSULT PHYSICIAN Internal Medicine Infectious Disease; EMERGENCY PHYSICIAN Emergency Medicine; FAMILY PHYSICIAN Hospitalist
DX: J18.9 Pneumonia, unspecified organism (principal); D84.821 Immunodeficiency due to drugs; R04.2 Hemoptysis; Z68.41 Body mass index [BMI] 40.0-44.9, adult; N17.9 Acute kidney failure, unspecified; E78.00 Pure hypercholesterolemia, unspecified; M06.9 Rheumatoid arthritis, unspecified; I12.9 Hypertensive chronic kidney disease with stage 1 through stage 4 chronic kidney disease, or unspecified chronic kidney disease; N18.31 Chronic kidney disease, stage 3a; E03.9 Hypothyroidism, unspecified; E04.1 Nontoxic single thyroid nodule; D69.6 Thrombocytopenia, unspecified; F32.A Depression, unspecified; N28.1 Cyst of kidney, acquired; R09.02 Hypoxemia; R06.89 Other abnormalities of breathing; I27.20 Pulmonary hypertension, unspecified; E66.01 Morbid (severe) obesity due to excess calories; R73.9 Hyperglycemia, unspecified; Z66 Do not resuscitate; Z60.2 Problems related to living alone; Z96.642 Presence of left artificial hip joint; Z79.631 Long term (current) use of antimetabolite agent; Z11.52 Encounter for screening for COVID-19; Z87.891 Personal history of nicotine dependence; Z98.1 Arthrodesis status; Z79.890 Hormone replacement therapy; Z87.442 Personal history of urinary calculi; Z22.322 Carrier or suspected carrier of Methicillin resistant Staphylococcus aureus
CPT/HCPCS: 71045; 71046; 71275; 80048; 80053; 82306; 83036; 83735; 83880; 84145; 84484; 85025; 85027; 87070; 87147; 87205; 87449; 87502; 87633; 87811; 87899; 93005; 93306; 94640; 96361; 96374; 97116; 97163; 99285; Q9967

== ENCOUNTER → 2024-11-23 11:18 | Outpatient (REF) | payer MEDICARE, OTHER, SELFPAY | LOC: HWRAD 11:18 | PROVIDERS: ATTENDING PHYSICIAN Nurse Practitioner Family; FAMILY PHYSICIAN Hospitalist | DX: R93.89 Abnormal findings on diagnostic imaging of other specified body structures (principal); R91.8 Other nonspecific abnormal finding of lung field | CPT/HCPCS: 71250 ==

== ENCOUNTER 2024-12-08 06:23 | Day surgery (SDC) | payer MEDICARE, OTHER, SELFPAY ==
[2024-12-07 11:31] LABS: Hematocrit 40.6 % (37.0-47.0); Hemoglobin 13.3 g/dL (12.0-16.0); Mean Corp Hgb Conc. 32.8 g/dL (33.0-37.0); Mean Corpuscular Hgb 31.3 pg (27.0-31.0); Mean Corpuscular Volume 95.5 fL (81.0-99.0); Mean Platelet Volume 11.7 fL (7.4-10.4); Platelet Count 187 10^3/uL (130-400); Red Blood Cell Count 4.25 10^6/uL (4.20-5.40); Red Cell Dist. Width 14.1 % (11.5-14.5); White Blood Cell Count 5.7 10^3/uL (4.8-10.8)
[2024-12-07 11:34] LABS: INR 0.99; PT 13.4 Sec (11.4-14.6)
[2024-12-07 11:35] LABS: APTT 27.9 Sec (23.4-35.0)
[2024-12-07 13:04] LABS: Blood Urea Nitrogen 18 mg/dl (7-17); Carbon Dioxide 24 mmol/L (22-30); Chloride 107 mmol/L (98-107); Glucose 111 mg/dl (70-99); Potassium 4.4 mmol/L (3.5-5.1); Sodium 141 mmol/L (135-145); eGFR 58.02
[2024-12-07 14:04] VITALS: BMI 42.5
--- NOTE | 2024-12-07 15:21 | PTCARENOTE ---
Abnormal EKG on 12/07/24. Dr. Donato aware. No intervention needed.
[2024-12-08] VITALS (13 sets, daily range): BP systolic 107–148; BP diastolic 52–77; BMI 42.5
[2024-12-08] MEDS: DUONEB 3 ML INH (16:12)
[2024-12-08] MEDS: SODIUM CHLORIDE 3% FOR INHALATION 1 VIAL INH (16:12)
--- NOTE | 2024-12-08 16:17 | CM ---
Addendum entered by Melvi Ernst 12/08/24 17:09:
TC to [facility] from [facility] at [phone], she is aware PACU nurse will fax information [phone].
MD and nursing updated.
Tank to be delivered to [facility], phone number on referral.
Original Note:
CM spoke with MD, patient needs concentrator for d/c home today, currently on 6 lites, weaning to 4 L prior to d/c.
Daughter says patient was off oxygen prior to d/c, may need an ambulatory pulse ox.
TC to [facility] from [facility] she will need ambulatory oximetry, oxygen order and progress note.
--- NOTE | 2024-12-08 17:03 | W.PN.UPDATE ---
Update Note
Progress Note Update
After the robotic bronchoscopy, patient brought to the PACU where she was hypoxic down to 83% on room air. She did, however, remained asymptomatic. Patient at 1 point was up to 6 L/min nasal cannula but then was able to be weaned down to 4 to
minute. Ambulatory pulse oximetry performed (see separate note by respiratory therapist for future documentation). She was able to be weaned down to 4 L/min at rest and required 6 L/min with activity to maintain saturations >88%. Patient was able
to walk around the PACU unit without any shortness of breath or chest pain. Also, post procedure CXR showed no evidence of pneumothorax. Case management contacted and we are trying to get the patient home with portable oxygen. She already has
oxygen at home but was in the process of getting removed after pulmonary office visit last month.
Pertinent physical exam:
NAD, pleasant mood
Thick neck
Clear to auscultation bilaterally with no wheezing, equal breath sounds, no stridor
+S1/S2 with no rubs or clicks; Trace LE edema bilaterally
Abdominal obesity, soft/NT, +BS
Trace LE edema bilaterally
Cooperative
Awake and alert
Impression:
Acute hypoxic respiratory failure likely due to diffuse mucoid secretions with atelectasis in the setting of recent anesthesia
Emphysema with suspected COPD
Pulmonary nodules
Obesity
Hyperlipidemia
GERD
Plan:
- Home O2 assessment performed in the PACU, and patient will require 4 L/min continuous O2 with rest, 6 L/min continuous O2 with activity
- Patient was already given Decadron 8 mg in the robotic bronchoscopy; hold off on additional steroids for now as patient is not in respiratory distress nor is she wheezing on exam
- While in the PACU, I administered the patient DuoNebs + nebulized 3% NS
- Home O2 assessment performed in PACU - will DC home on 4L/min with rest, 6L/min with activity
- Case management able to arrange for portable oxygen which will be delivered here to the hospital.
- Will perform a 6MWT next time patient is in the pulmonary office with us
- Await cytology, pathology and microbiology from today's robotic bronchoscopy
- Patient knows to be cognizant of her symptoms and if she develops hemoptysis that is significant (>teaspoon amount at a time), chest pain, shortness of breath, shoulder pain, back pain, fevers or chills she knows to contact our pulmonary office
immediately or go to her nearest emergency department for evaluation
- Patient's daughter, Collette, was updated and all questions were answered
Patient is stable for discharge home once portable oxygen is delivered here to the hospital.
--- NOTE | 2024-12-08 17:07 | SUR.PHASEI ---
Pt 83% on RA. Ambulated 270 feet on 6LNC sating 91%. Per physician (Dr. Laguna would like pt on 4L NC at rest and 6L NC with ambulation)
== END 2024-12-08 18:00 | disposition home or self-care (01) ==
LOC: SDS 06:23
PROVIDERS: ATTENDING PHYSICIAN Internal Medicine Critical Care Medicine; FAMILY PHYSICIAN Hospitalist
DX: R91.8 Other nonspecific abnormal finding of lung field (principal); R91.1 Solitary pulmonary nodule; R06.02 Shortness of breath; R93.89 Abnormal findings on diagnostic imaging of other specified body structures; J98.09 Other diseases of bronchus, not elsewhere classified; J98.4 Other disorders of lung; R09.89 Other specified symptoms and signs involving the circulatory and respiratory systems; J84.10 Pulmonary fibrosis, unspecified
CPT/HCPCS: 31629; 31628; 31645; 31624; 31623; 31627; 31654; 88173; 88305; 36415; 71045; 76000; 80048; 85027; 85610; 85730; 87015; 87070; 87102; 87116; 87205; 88112; 88333; 93005; 94640; C1887

== ENCOUNTER → 2025-03-08 11:10 | Outpatient (REF) | payer MEDICARE, OTHER, SELFPAY | LOC: RAD 11:10 | PROVIDERS: ATTENDING PHYSICIAN Internal Medicine; FAMILY PHYSICIAN Hospitalist | DX: M25.571 Pain in right ankle and joints of right foot (principal) | CPT/HCPCS: 73610 ==

== ENCOUNTER 2025-06-13 16:01 | Inpatient (IN) | payer MEDICARE, OTHER, SELFPAY ==
[2025-06-13] VITALS (14 sets, daily range): BP systolic 106–152; BP diastolic 44–130; BMI 43.0; BMI 41.3
--- NOTE | 2025-06-13 10:08 | ED.GENMED ---
History of Present Illness
General
Chief Complaint: Breathing Problem
Time Seen by Provider: 06/13/25 10:00
History of Present Illness
History of Present Illness:
80-year-old female with history of COPD, hypertension, hyperlipidemia, and hypothyroidism presents to the emergency department for evaluation of shortness of breath for the past 3 to 4 days. Was seen in urgent care 2 days ago where chest x-ray was
obtained that was unremarkable. She was not not tested for COVID and flu. Was treated with azithromycin, has taken 2 doses thus far. Over the past 24 hours has noted gradual increased in hemoptysis, now describing 'globs of blood' in her sputum.
Has previously followed with pulmonology as an outpatient for COPD and pulmonary nodules with no evidence of malignancy. [id number] smoking history, quit approximately 10 years ago
Past History
Past History
ED Past Medical History: None
ED Past Surgical History: None
Social History
Tobacco: Non-smoker
Alcohol: None
Drug: None
Living: alone
Review of Systems
Review of Systems
Allergies reviewed?: Yes
All Other Systems: ROS reviewed and negative except as documented in HPI and ROS
Phy Exam
Physical Exam
Physical Exam:
GEN: Well appearing, NAD, WDWN
HEENT: Oral mucosa moist, no scleral icterus
Cardiac: Regular rate
Lung: Mildly tachypneic but no accessory muscle use, rhonchi in wheezes heard throughout all lung brower primarily expiratory
MSK: No gross deformity or injuries
Skin: Good color, no pallor or jaundice, no rashes
Neuro: AO x3, moves all extremities freely
Psych: Calm, cooperative
Scores
Heart Failure Risk
Heart Failure Risk Score: Not Applicable
Course
Orders/Labs/Results
Orders:
Orders
06/13/25 10:07
Ipratropium/Albuterol Sulfate [Duoneb] 3 ml INH R NOW STA
06/13/25 10:15
COVID-19 Antigen Urgent
Source: Nasal Swab
Complete Blood Count/With Diff Urgent
Comprehensive Metabolic Panel Urgent
Lactic Acid Q4H
Comment: CANCEL 2nd LACTIC ACID IF 1st LACTIC ACID IS LESS THAN 2
Blood Culture Q30M
CARLOS Source: Blood/Venous
Specimen Description:
Influenza A+B Rapid Molecular Urgent
CARLOS Source: Nasal Swab
Specimen Description:
06/13/25 10:36
Blood Culture Q30M
CARLOS Source: Blood/Venous
Specimen Description:
06/13/25 11:21
CT Chest PE Study Urgent
Comment:
Reason For Exam: COVID +, hemoptysis
06/13/25 13:13
MethylPREDNISolone PF [Solu-Medrol Pf] 40 mg IV NOW STA
06/13/25 15:09
Admit/Transfer Patient As Directed
Co-Sign Provider:
Level of Care: Inpatient admission
Assign to:: IMU- Intermediate Care
Physician / Group: ozzy vargas
Diagnosis: hypoxic resp insuff 2/2 covid-19 pneumonitis/copd exac, Ra immune compro
Reason for Hospitalization: hypoxic resp insuff 2/2 covid-19 pneumonitis/copd exac,Ra immune compro
Expected length of stay greater than two midnights?: Yes
ELOS- Estimated Length of Stay in days: 5
I certify the patient meets the requirements for IP care: Yes
Code Status As Directed
Resuscitation Status: Do not resuscitate
Reached after discussion with pt or family/Healthcare POA: Yes
Based on pt advanced directive or healthcare POA form: Yes
Decision communicated with: Per patient with daughter present at bedside
DNR Bracelet Application ONCE
06/13/25 15:16
PRN Pain Medication Management As Directed
May give lesser potent ordered pain med per pt: Yes
preference::
Protocol:: Medication orders for pain may be administered in a
manner that supports deferring to patient preference
when the pt is:
- Requesting an ordered lesser potent pain medication.
Least to most potent pain medications are defined
as: acetaminophen < NSAID < tramadol < opioids
(morphine, oxycodone, hydromorphone).
- Requesting a lesser dose of the same medication IF
ORDERED.
- Requesting a less intrusive route of administration
if both routes are prescribed by the provider (PO <
IV).
06/13/25 15:20
Remdesivir [Veklury] 200 mg 0.9% Sodium Chloride 250 ml [Nss] 210 ml IV ONCE
Patient has been symptomatic for </= 10 days?: Yes
Patient's SpO2 </= 94% on room air OR requiring oxygen?: Yes
06/14/25 12:00
Remdesivir [Veklury] 100 mg 0.9% Sodium Chloride 250 ml [Nss] 230 ml IV DAILY@1200
Abnormal Lab Results
06/13/25
10:15
MPV 11.0 H fL
(7.4-10.4)
Absolute Neuts (auto) 7.1 H 10^3/uL
(1.4-6.5)
Absolute Lymphs (auto) 0.9 L 10^3/uL
(1.2-3.4)
Absolute Monos (auto) 0.8 H 10^3/uL
(0.1-0.6)
Neutrophils % 80.7 H %
(42.2-75.2)
Lymphocytes % 10.3 L %
(20.5-51.1)
Sodium 132 L mmol/L
(135-145)
BUN 18 H mg/dl
(7-17)
Calcium 8.2 L mg/dl
(8.4-10.2)
Albumin 3.4 L g/dl
(3.5-5.0)
SARS-CoV-2 Antigen Positive A
(Negative)
06/13/25 10:15
06/13/25 10:15
Vital Signs
Initial and Last Documented VS:
Initial Vital Signs
Temp Pulse Resp BP Pulse Ox
100.1 F 75 20 146/56 85
06/13/25 09:48 06/13/25 09:48 06/13/25 09:48 06/13/25 09:48 06/13/25 09:48
Last Documented Vital Signs
Temp Pulse Resp BP Pulse Ox
100.1 F 67 17 121/64 95
06/13/25 09:48 06/13/25 14:30 06/13/25 14:30 06/13/25 14:10 06/13/25 14:30
MDM/Problems Addressed
MDM/Problems Addressed:
Patient be admitted to the medical service due to hypoxemia in the setting of COVID-19 causing a COPD exacerbation, a CT scan was obtained to evaluate for possible pulmonary embolism given COVID-19 and hemoptysis, fortunately this showed no evidence
for central PE. Patient remained stable on supplemental oxygen with IV steroids and nebulizer treatment.
*Pulse Oximetry
SaO2: 85
Oxygen Mode of Delivery: Room air
Patient hypoxic: yes
*Critical Care Note
Total Time (30-74mins, 75-104mins- exclusive of procedures): Not Applicable
ED Attending Note
-
Portions of this chart may have been created with voice recognition software.� Occasional wrong word or��sound alike� substitutions may have occurred due to the inherent limitations of voice recognition software.
Discharge Plan
Departure
Patient Disposition: Admit
Date of Disposition: 06/13/25
Time of Disposition: 13:58
Admit to: Med/Surg
Presentation/result/management discussed w/ accepting MD/DO: Hospitalist
Discharge Problem:
COVID-19, Acute exacerbation of chronic obstructive pulmonary disease (COPD), Hemoptysis
Prescriptions:
No Action
bupropion HCl 150 mg Tablet Sustained-Release 12 Hr
150 mg PO BID
atorvastatin 20 mg Tablet
20 mg PO QPM
levothyroxine 25 mcg Tablet
25 mcg PO DAILY
docusate sodium 100 mg Capsule
100 mg PO QPM
folic acid 1 mg Tablet
1 mg PO DAILY
hydroxychloroquine [Plaquenil] 200 mg Tablet
200 mg PO BID
sertraline 50 mg Tablet
50 mg PO QPM
cholecalciferol (vitamin D3) [Vitamin D3] 25 mcg (1,000 unit) Tablet
25 mcg PO DAILY
acetaminophen 325 mg Tablet
650 mg PO Q4HPRN PRN (Reason: mild pain) Qty: 30 0RF
metoprolol succinate 25 mg Tablet Extended Release 24 Hr
25 mg PO QPM Qty: 30 0RF
ipratropium-albuterol 0.5 mg-3 mg(2.5 mg base)/3 mL solution for nebulization
3 ml inhalation BID
dextromethorphan polistirex [Delsym 12 hour] 30 mg/5 mL Suspension,Extended Rel 12 Hr
10 ml PO DAILYPRN PRN (Reason: cough)
budesonide-formoterol [Symbicort] 160-4.5 mcg/actuation Hfa Aerosol Inhaler
2 puff INHALATION R BID
furosemide [Lasix] 20 mg tablet
20 mg PO DAILYPRN PRN (Reason: swelling)
Orencia
87.5 mg PO MONTHLY
Rx Instructions:
87.5/0.7 ml
methotrexate
2.5 ml PO WE
Referrals:
Mojgan Burciaga, DO [Family Provider, General]
Interventions
Interventions:
*Risk Screen - Suicide Last Done: 06/13/25 09:48
*General Assessment Last Done: 06/13/25 10:33
*Neglect/Abuse Screening Last Done: 06/13/25 10:33
*ED COVID-19 Vaccine History Last Done: 06/13/25 10:33
*ED Influenza Vaccine History Last Done: 06/13/25 10:33
[facility] Fall Risk Assessment Tool Last Done: 06/13/25 10:33
ED- Cardiac Assessment Last Done: 06/13/25 10:33
ED- Pulmonary Assessment Last Done: 06/13/25 10:33
Discharge Date and Time
Print Language: MONEGASQUE
[2025-06-13] MEDS: DUONEB 3 ML INH (10:42)
[2025-06-13 10:58] LABS: Hematocrit 39.7 % (37.0-47.0); Hemoglobin 13.3 g/dL (12.0-16.0); Mean Corp Hgb Conc. 33.5 g/dL (33.0-37.0); Mean Corpuscular Volume 90.4 fL (81.0-99.0); Nucleated Red Blood Cells % 0 %; Platelet Count 132 10^3/uL (130-400); Red Cell Dist. Width 14.2 % (11.5-14.5)
[2025-06-13 11:02] LABS: AST (SGOT) 28 U/L (14-36); Albumin 3.4 g/dl (3.5-5.0); Alkaline Phosphatase 78 U/L (38-126); Blood Urea Nitrogen 18 mg/dl (7-17); Calcium 8.2 mg/dl (8.4-10.2); Carbon Dioxide 27 mmol/L (22-30); Chloride 102 mmol/L (98-107); Estimated Creatinine Clearance 61 ml/min; Glucose 81 mg/dl (70-99); Potassium 4.1 mmol/L (3.5-5.1); Sodium 132 mmol/L (135-145); Total Protein 6.6 g/dl (6.3-8.2); eGFR > 60.00
[2025-06-13 11:11] LABS: ALT (SGPT) 17 U/L (0-35)
[2025-06-13 11:19] LABS: COVID-19 Antigen Positive (Negative)
[2025-06-13] MEDS: SOLU-MEDROL PF 40 MG IV (13:46)
--- NOTE | 2025-06-13 14:35 | W.PN.UPDATE ---
Update Note
Progress Note Update
This note serves as an addendum to the H&P by skydiving instructor Jayden Yang
HPI
80F remote HX heavy smoker
PMHX: COPD, hypertension, hyperlipidemia, and hypothyroidism
Seen at ER for evaluation of shortness of breath for the past 3 to 4 days.
- seen in urgent care 2 days ago where chest x-ray was obtained that was unremarkable -not tested for COVID and flu- treated with azithromycin, has taken 2 doses thus far.
- Over the past 24 hours has noted gradual increased in hemoptysis, now describing 'globs of blood' in her sputum.
- previously followed with pulmonology as an outpatient for COPD and pulmonary nodules with no evidence of malignancy
- [id number] smoking history, quit approximately 10 years ago
PHX:
Relevant VS
Vital Signs
Temp Pulse Resp BP Pulse Ox
100.1 F 67 17 121/64 95
06/13/25 09:48 06/13/25 14:30 06/13/25 14:30 06/13/25 14:10 06/13/25 14:30
06/13/25
09:48 06/13/25
10:11
Temp 100.1 F
Pulse 75
Resp Rate 20
Blood pressure 146/56
SaO2 85 85
Oxygen Mode of Delivery Room air Room air
PE
Class III Obesity BMI 43v
Gen: NAD, not orthopneic, not toxic
HEENT:wearing NC O2
Neck: supple
Lungs: symmetric decreased AE , no wheeze and rhonchi
Cor: RRR S1 S2
Abdomen:�Obese
TERMITE CONTROL TECHNICIAN: AAO3
MS: no edema
Psych: Nl mood and affect
Relevant data�
06/13/25
10:15
WBC 8.8
Hgb 13.3
Plt Count 132
Sodium 132 L
BUN 18 H
Creatinine 0.9
eGFR > 60.00
06/13/25
10:15
SARS-CoV-2 Antigen
Flu A & B Positive A
NEG
CTC PE study
1. No evidence of pulmonary embolism or thoracic aortic dissection.
2. Extensive bilateral groundglass opacities, most consistent with multifocal pneumonitis, often seen in the setting of Covid pneumonitis.
3. Nodular opacity within the right upper lobe, without significant change compared to prior PET/CT dated 01/13/2025. Please see discussion from the prior study.
4. Mild centrilobular emphysema. Patient should be assessed for an annual low-dose lung cancer CT program, as pulmonary emphysema is an independent risk factor for lung cancer.
5. Moderate hiatal hernia. Small right posterior diaphragmatic hernia.
Last hospitalist admission: 10/14/2024 - 10/19/2024
DISCHARGE DIAGNOSES:
1. Acute hypoxic respite insufficiency.
2. Pneumonia/pneumonitis.
3. Methicillin-resistant Staph aureus screen positive.
4. Cystic mass in the upper mid right kidney, 3.4 cm.
5. Acute kidney injury.
ASSESSMENT & PLAN
Acute viral Covid: onset 3- 4 days
Associated acute hypoxemic RI requiring NC O2
Associated extensive bilateral groundglass opacities, most c/w multifocal pneumonitis often seen in the setting of Covid pneumonitis.
- Immunocompromised due to being on Plaquenil & MTX for rheumatoid arthritis - will hold for now
- with hemoptysis
- Low grade fever. No leukocytosis
- Currently on NC O2
- will start on Remdesivir
- IV Decadron
- Consult : ID and Pul
Known HX:
HX spontaneous aneurysmal bleed s/p craniotomy
Hypothyroidism: cont Levoxyl
Hyperlipidemia: cont statin
Depression: cont Zoloft/Wellbutrin
RA: Hold both Plaquenil and MTX
Morbid obesity due to excess calories: Encourage weight loss, affects all aspects of care
HX aneurysmal bleed with clipping 2014.
Hypertension.
DVT Px: LMWH
DNR confirmed by daughter
IMU
--- NOTE | 2025-06-13 14:49 | HPS.HSE ---
Family Physician
-
Family Physician: Mojgan Burciaga DO
Chief Complaint
-
Shortness of breath, hypoxia, cough
History of Present Illness
80-year-old female complaining of shortness of breath over the last 3 to 4 days. She reports going to her granddaughters [employer] concert on June 06. Her granddaughter is currently sick today with a sore throat. The patient was seen in urgent
care 2 days ago where she had unremarkable chest x-ray. She was not tested for flu or COVID at that time. She was given azithromycin of which she has taken 2 doses such 4. She comes in complaining of cough with hemoptysis over the past 24 hours
along with continued shortness of breath. She tested positive for COVID in the ER was hypoxic at 85% requiring 4 L nasal cannula oxygen. She does have underlying COPD and pulmonary nodules with prior [id number] smoking history quit 10 years ago.
She denies sore throat, headache, dizziness, chest pain, palpitations, abdominal pain, nausea, vomiting, diarrhea, urinary symptoms. She has past medical history of COPD, pulmonary nodules, MRSA screen positive, cystic mass in the upper mid right
kidney 3.4 cm October 2024, spontaneous aneurysmal bleed status post clipping 2014, hypothyroidism, HTN, HLD, depression, RA, morbid obesity, nephrolithiasis, former smoker 50+ year quit 10 years ago
Medical History
Past Medical History
Past Medical History: Reports Other
Additional Past Medical History:
spontaneous aneurysmal bleed intracranial status post clipping
COPD,
pulmonary nodules
MRSA screen positive
cystic mass in the upper mid right kidney 3.4 cm October 2024
hypothyroidism
HTN
HLD
depression
RA
morbid obesity
nephrolithiasis
former smoker 50+ year quit 10 years ago
Past Surgical History: Reports Orthopedic (Lumbar spinal fusion, status post left hip arthroplasty)
Social History
Tobacco: Former Smoker
Alcohol: None
Drug: None
Personal: Single
Living: Assisted Living
Employment: Retired
Family History
Family History: Not pertinent
Allergies / Home Medications
Allergies reflects when Allergies were last updated in [employer].
Home Medications with original date entered in [employer]
Allergy/Medication List:
Allergies
Allergy/AdvReac Type Severity Reaction Status Date / Time
No Known Allergies Allergy Verified 06/13/25 09:47
Home Medications
atorvastatin 20 mg tablet 20 mg PO QPM High Cholesterol 05/24/23
bupropion HCl 150 mg tablet,12 hr sustained-release 150 mg PO BID Mental Health/Anxiety 05/24/23
cholecalciferol (vitamin D3) 25 mcg (1,000 unit) tablet (Vitamin D3) 25 mcg PO DAILY Supplement 05/24/23
docusate sodium 100 mg capsule 100 mg PO QPM Constipation 05/24/23
folic acid 1 mg tablet 1 mg PO DAILY Supplement 05/24/23
hydroxychloroquine 200 mg tablet (Plaquenil) 200 mg PO BID RHEUMATOID ARTHRITIS 05/24/23
levothyroxine 25 mcg tablet 25 mcg PO DAILY Thyroid 05/24/23
sertraline 50 mg tablet 50 mg PO QPM Mental Health/Anxiety 05/24/23
acetaminophen 325 mg tablet 650 mg (2 x 325 mg) PO Q4HPRN PRN mild pain #30 tabs 05/28/23
metoprolol succinate 25 mg tablet,extended release 24 hr 25 mg PO QPM Blood pressure #30 tabs 10/19/24
ipratropium 0.5 mg-albuterol 3 mg (2.5 mg base)/3 mL nebulization soln 3 ml inhalation BID Lung/breathing issues 12/07/24
Orencia 87.5 mg PO MONTHLY 06/13/25
budesonide-formoterol HFA 160 mcg-4.5 mcg/actuation aerosol inhaler (Symbicort) 2 puff inhalation R BID 06/13/25
dextromethorphan polistirex 30 mg/5 mL oral susp ext.release 12hr (Delsym 12 hour) 10 ml PO DAILYPRN PRN cough 06/13/25
furosemide 20 mg tablet (Lasix) 20 mg PO DAILYPRN PRN swelling 06/13/25
methotrexate 2.5 ml PO WE 06/13/25
Review of Systems
-
History Source: Patient and Family (Daughter at bedside)
A 12 point ROS was completed and negative except as noted: Yes
Constitutional: Denies Fever or Chills
EENT: Denies Sore Throat or Runny Nose
Respiratory: Reports Cough, Hemoptysis (Mixed with sputum) and Trouble Breathing
Cardiac: Denies Chest Pain, Diaphoresis, Palpitations or Syncope
Abdomen/GI: Denies Abdominal Pain, Nausea, Vomiting, Diarrhea, Constipated, Bloody Stools or Black Stools
: Denies Dysuria, Frequency, Flank Pain, Incontinence, Difficulty Voiding or Urgency
Musculoskeletal: Denies Joint Pain or Edema
Skin: Denies Itching or Rash
Neurological: Denies Dizzy or Headache
Endocrine: Reports No Symptoms
Hematologic/Lymphatic: Reports No Symptoms
Psych: Reports Calm
Physical Exam
Vital Signs
Vital Signs
Temp Pulse Resp BP Pulse Ox
100.1 F 67 17 121/64 95
06/13/25 09:48 06/13/25 14:30 06/13/25 14:30 06/13/25 14:10 06/13/25 14:30
Physical Exam
General: Comfortable and Conversant; No Pain, Fever or Chills
HEENT: NormoCephalic, Anicteric, Kirkpatrick Conjunctivae, No Ptosis and Oxygen (2 L nasal cannula)
Respiratory: Wheezes; No Rales or Rhonchi
Cardiac: S1/S2 and Regular Rhythm; No Murmur, Rub, Gallop or Peripheral Edema
GI: Soft, Non Tender, Non Distended, Normal Bowel Sounds and No Hepatosplenomegaly
Rectal: Deferred by Provider
Genito-urinary: Deferred by me
Musculoskeletal: No Clubbing, No Cyanosis and No Edema
Skin: Warm and Dry; No Rash
Neuro: AO x 3, No Motor Deficits, Nonfocal/grossly intact, Cranial Nerves Intact and No Sensory Deficits; No Slurred Speech, Facial Droop, Tremors or Sedated
Psych: Calm
Laboratory Results
-
06/13/25 10:15
06/13/25 10:15
Laboratory Results
Lactic Acid Cancelled 06/13/25 14:15
Total Bilirubin 0.8 mg/dl (0.2-1.3) 06/13/25 10:15
AST 28 U/L (14-36) 06/13/25 10:15
ALT 17 U/L (0-35) 06/13/25 10:15
Alkaline Phosphatase 78 U/L (38-126) 06/13/25 10:15
Data Reviewed
-
CT Scan: Report Reviewed by me
Lab Data: Labs Reviewed by me
Impression/Plan
-
Impression/plan:
Admit to IMU
#Acute hypoxic respiratory insufficiency 2/2 Covid -19 positive/COPD exacerbation in immunocompromised patient
Hemoptysis due to persistent cough from COVID 19
85% RA, 95% 4 L nasal cannula
- COVID precautions
- Continue Symbicort
- IV Decadron 6 mg daily
-IV remdesivir
-Hold statin
-Consult infectious disease Dr. Farias aware
-Consult pulmonary
- Tylenol as needed
- Robitussin
#Rheumatoid arthritis history
Hold Plaquenil, methotrexate last dose was 06/01, hold Orencia once a month was due tomorrow 06/14/2025
# MRSA Screen positive Hx
# Cystic mass in the upper mid right kidney measuring at least 3.4 cm
-OP Work up discussed with daughter October 2024 admission
# H/O spontaneous aneurysmal bleed s/p clipping 2014
# Hypothyroidism: cont Levoxyl
# Hypertension
-continue metoprolol
# Hyperlipidemia: Hold statin in the setting of IV remdesivir
# Depression: cont Zoloft/Wellbutrin
# Morbid obesity BMI 43
- Weight loss recommended affects all aspects of care
# History of nephrolithiasis
# Ex Smoker
# DVT prophylaxis-
Subcu Lovenox
# DNR per patient with daughter present at bedside
[2025-06-13] MEDS: VEKLURY 250 MG IV (15:44)
--- NOTE | 2025-06-13 16:27 | EDCM ---
Reviewed chart and met with pt bedside in ED. Lives alone in [place] apartment at [facility].
Independent in ADLs, personal care and ambulation at baseline, uses rollator. Also has grab bars in shower, shower chair and nebulizer. Had home O2 in 10/2024 from [facility], no longer needed it. Currently on 4 L NC.
Confirms prescription coverage.
PCP: Mojgan Burciaga
Pharmacy: [facility], uses [facility] for mail order meds.
CM will continue to follow for all discharge planning needs.
[2025-06-13] MEDS: COLACE 100 MG PO (19:11)
[2025-06-13] MEDS: LOVENOX 40 MG SC (19:11)
[2025-06-13] MEDS: TOPROL XL 25 MG PO (19:11)
[2025-06-13] MEDS: SYMBICORT 160/4.5 MCG INHALER 2 PUFF INH (20:19)
[2025-06-14] VITALS (15 sets, daily range): BP systolic 120–156; BP diastolic 43–113; PULSE 75–77; O2SAT 92; BMI 41.0
[2025-06-14] MEDS: ZOLOFT 50 MG PO ×2 (00:26→17:49)
[2025-06-14] MEDS: WELLBUTRIN SR (12 hour sustained release) 150 MG PO ×3 (00:26→20:42)
--- NOTE | 2025-06-14 01:07 | PTCARENOTE ---
Pt received from ED RN on 4L nc spo2 92%. Pt having periods of spo2 dropping to 88%. Pt now at 6L to reach goal of 90%. Pt stating she 'feels better' and does not feel sob at this time. Pt lungs are coarse throughout. Assessment care and vitals as
charted.
[2025-06-14] MEDS: SYNTHROID 25 MCG PO (06:11)
[2025-06-14 06:42] LABS: Hematocrit 40.5 % (37.0-47.0); Hemoglobin 13.4 g/dL (12.0-16.0); Mean Corp Hgb Conc. 33.1 g/dL (33.0-37.0); Mean Corpuscular Volume 91.8 fL (81.0-99.0); Nucleated Red Blood Cells % 0 %; Platelet Count 129 10^3/uL (130-400); Red Cell Dist. Width 14.1 % (11.5-14.5)
[2025-06-14 07:07] LABS: ALT (SGPT) 18 U/L (0-35); AST (SGOT) 31 U/L (14-36); Albumin 3.2 g/dl (3.5-5.0); Alkaline Phosphatase 77 U/L (38-126); Blood Urea Nitrogen 20 mg/dl (7-17); Calcium 8.1 mg/dl (8.4-10.2); Carbon Dioxide 27 mmol/L (22-30); Chloride 103 mmol/L (98-107); Estimated Creatinine Clearance 67 ml/min; Glucose 103 mg/dl (70-99); Potassium 4.0 mmol/L (3.5-5.1); Sodium 135 mmol/L (135-145); Total Protein 6.2 g/dl (6.3-8.2); eGFR > 60.00
[2025-06-14] MEDS: SYMBICORT 160/4.5 MCG INHALER 2 PUFF INH ×2 (08:20→19:37)
[2025-06-14] MEDS: DESENEX/MITRAZOL/ZEASORB 1 APPLIC TOPICAL ×2 (09:15→20:42)
[2025-06-14] MEDS: FOLVITE 1 MG PO (09:16)
[2025-06-14] MEDS: DECADRON 6 MG IV (09:16)
[2025-06-14] MEDS: VITAMIN D3 (cholecalciferol) 25 MCG PO (09:16)
--- NOTE | 2025-06-14 09:24 | W.PN.HOSP.TC ---
Today's Communication/Plan
-
wean off o2 as possible
On remdesevir/steroids, maintain per ID guidance
continue other meds
Assessment / Plan
Assessment / Plan
#Acute hypoxic respiratory insufficiency
COVID-19 viral pneumonia
-Patient requiring 4 L oxygen through nasal cannula in ER
-CT chest images reviewed and have changes of COPD with superimposed infiltrates
-Currently on remdesivir and IV Decadron 6 mg daily
-Infection disease/pulmonology has been consulted for further help
-Patient was prescribed azithromycin by outpatient physician, no true clinical concern of bacterial pneumonia. will hold abx for now
# Antibiotic use related diarrhea
- Patient having some diarrhea likely from azithromycin use and COVID-related
- Hold on checking any stool testing and monitor
#Rheumatoid arthritis history
Hold Plaquenil, methotrexate last dose was 06/01, hold Orencia once a month was due tomorrow 06/14/2025
# Cystic mass in the upper mid right kidney measuring at least 3.4 cm
-OP Work up discussed with daughter October 2024 admission
# Thrombocytopenia
- Mild monitor
# H/O spontaneous aneurysmal bleed s/p clipping 2014
# Hypothyroidism: cont Levoxyl
# Hypertension-continue metoprolol
# Hyperlipidemia: Hold statin in the setting of IV remdesivir
# Depression: cont Zoloft/Wellbutrin
# Morbid obesity BMI 43- Weight loss recommended affects all aspects of care
# History of nephrolithiasis
# Ex Smoker
DVT prophylaxis-Subcu Lovenox
DNR per patient with daughter present at bedside
Anticipated Discharge: 24 - 48 hours
Subjective/Interval History
-
Date of Service: June 14, 2025
Patient subjective feeling better
Remains on oxygen through nasal cannula
Complaining some dry cough
Also having some diarrhea
Objective Data
-
Labs:
Laboratory Results
06/14/25
06:20
WBC 6.0
Hgb 13.4
Hct 40.5
Plt Count 129 L
Sodium 135
Potassium 4.0
Chloride 103
Carbon Dioxide 27
BUN 20 H
Creatinine 0.8
Glucose 103 H
Calcium 8.1 L
Total Bilirubin 0.3
AST 31
ALT 18
Alkaline Phosphatase 77
Vital Signs:
Vital Signs
Temp Pulse Resp BP Pulse Ox
97.5 F 73 16 125/59 95
06/14/25 08:04 06/14/25 08:26 06/14/25 08:26 06/14/25 06:08 06/14/25 08:26
I&O
06/13/25 06/14/25 06/15/25
06:59 06:59 06:59
Intake Total 240 / 240
Balance 240 / 240
Review of Systems
-
Respiratory: Reports Cough; Denies Trouble Breathing
Cardiac: Reports No Symptoms
Abdomen/GI: Reports No Symptoms
Physical Exam
-
General: Comfortable and Obese
HEENT: Oxygen (3L NC)
Respiratory: Clear to Auscultation
Cardiac: Regular Rhythm and S1/S2; Negative Murmur or Rub
GI: Soft, Nontender and Nondistended
Musculoskeletal: No Edema
Neuro: Awake, Alert, Oriented, No Motor Deficits and Nonfocal/Grossly Intact
Psych: Calm
--- NOTE | 2025-06-14 11:02 | CON.PUL ---
Consultation
Consultation Request
Date/Time Consultation Requested: 06/14/2025-7:30 AM
Date/Time Consultation Performed: 06/14/2025-8 AM
Requesting Provider: Hospitalist
Performing Provider: Dr. Jacobson
Reason for Consultation: Hypoxemia and covid
Medical History
-
Chief Complaint: Shortness of breath
History of Present Illness:
80-year-old former smoking, obese female with history of COPD, pulmonary nodules, hypertension, hyperlipidemia, rheumatoid arthritis who underwent bronchoscopy for lung nodules that was unrevealing Repeat CT chest October 2025, presented with
shortness of breath and hypoxemia, found to have covid and pulmonary consulted for covid/COPD exacerbation 06/14/25. She feels improved on oxygen. She denies ingesting chest tightness, productive cough, hemoptysis, which she has had in the past,
pleurisy, abdominal pain, nausea, leg swelling, or focal weakness.
Past Medical History
Past Medical History: None ( Hypertension. Hyperlipidemia. Depression. Morbid obesity. Nephrolithiasis. COPD. Pulmonary nodule, status post bronchoscopy 12/2024-negative. RA. Cystic kidney mass. Hypothyroid. History intracranial
hemorrhage.)
Past Surgical History: None ( Lumbar screws. Left hip replacement. Brain aneurysm. Appendectomy.)
Social History
Tobacco: Former Smoker ( [id number], quit 20 years ago)
Alcohol: None
Drug: None
Personal: Single
Occupational Exposures: No known asbestos exposure
Environmental Exposures: No known tuberculosis exposure
Family History
Family History: Reviewed & Not Pertinent (. Mother-Alzheimer's. Brother had kidney cancer)
Allergies / Home Medications
Allergies
Allergy/AdvReac Type Severity Reaction Status Date / Time
No Known Allergies Allergy Verified 06/13/25 09:47
Home Medications
�Medication �Instructions �Recorded �Confirmed �Last Taken �Type
atorvastatin 20 mg tablet 20 mg PO QPM High Cholesterol 05/24/23 06/13/25 06/12/25 History
bupropion HCl 150 mg tablet,12 hr 150 mg PO BID Mental Health/Anxiety 05/24/23 06/13/25 06/12/25 History
sustained-release
cholecalciferol (vitamin D3) 25 25 mcg PO DAILY Supplement 05/24/23 06/13/25 06/12/25 History
mcg (1,000 unit) tablet (Vitamin
D3)
docusate sodium 100 mg capsule 100 mg PO QPM Constipation 05/24/23 06/13/25 06/12/25 History
folic acid 1 mg tablet 1 mg PO DAILY Supplement 05/24/23 06/13/25 06/12/25 History
hydroxychloroquine 200 mg tablet 200 mg PO BID RHEUMATOID ARTHRITIS 05/24/23 06/13/25 06/12/25 History
(Plaquenil)
levothyroxine 25 mcg tablet 25 mcg PO DAILY Thyroid 05/24/23 06/13/25 06/12/25 History
sertraline 50 mg tablet 50 mg PO QPM Mental Health/Anxiety 05/24/23 06/13/25 06/12/25 History
acetaminophen 325 mg tablet 650 mg (2 x 325 mg) PO Q4HPRN PRN 05/28/23 06/13/25 06/13/25 Rx
mild pain #30 tabs
metoprolol succinate 25 mg 25 mg PO QPM Blood pressure #30 10/19/24 06/13/25 06/12/25 Rx
tablet,extended release 24 hr tabs
ipratropium 0.5 mg-albuterol 3 mg 3 ml inhalation BID Lung/breathing 12/07/24 06/13/25 12/07/24 23:00 History
(2.5 mg base)/3 mL nebulization issues
soln
Orencia 87.5 mg PO MONTHLY RA 06/13/25 06/13/25 05/13/25 10:00 History
budesonide-formoterol HFA 160 2 puff inhalation R BID 06/13/25 06/13/25 Unknown History
mcg-4.5 mcg/actuation aerosol Lung/Breathing Issues
inhaler (Symbicort)
dextromethorphan polistirex 30 10 ml PO DAILYPRN PRN cough 06/13/25 06/13/25 06/12/25 History
mg/5 mL oral susp ext.release 12hr
(Delsym 12 hour)
furosemide 20 mg tablet (Lasix) 20 mg PO DAILYPRN PRN swelling 06/13/25 06/13/25 Unknown History
methotrexate 2.5 ml PO WE RA 06/13/25 06/13/25 06/01/25 09:00 History
Review of Systems
-
Unable to Obtain full review of systems at this time due to: Other ( per HPI)
Vitals / Labs / Diagnostic Testing
Vital Signs
Temp Pulse Resp BP Pulse Ox
97.5 F 73 16 125/59 95
06/14/25 08:04 06/14/25 08:26 06/14/25 08:26 06/14/25 06:08 06/14/25 08:26
Lab Data
06/14/25 06:20
06/14/25 06:20
Microbiology
06/13/25 10:36 Blood/Venous Blood Culture - Preliminary
No Growth in 24 hours- Final report to follow
06/13/25 10:15 Blood/Venous Blood Culture - Preliminary
No Growth in 24 hours- Final report to follow
06/13/25 10:15 Nasal Swab Influenza Types A & B (ALVIN) - Final
Negative for Influenza A & B, NAAT
Negative results must be combined with clinical observations
and patient history.
Nucleic Acid Amplification test (NAAT)performed on the
[employer] platform.
Diagnostic Testing:
Physical Exam
-
Exam:
well-nourished and well-developed in no apparent distress
HEENT-atraumatic, normocephalic
Neck-supple, no JVD, no bruit
Heart-regular rate and rhythm-no murmurs, rubs or gallops
Chest with diminished breath sounds, prolonged expiratory time, rare basilar crackles and no wheezes
Back-no tenderness
Abdomen-soft, nontender, nondistended, no hepatosplenomegaly
Extremities-no cyanosis, clubbing, trace lower extremity edema
Integument-intact, no rashes, lesions or ecchymosis
Neurology-alert and oriented, nonfocal motor and sensory exam
Assessment
-
80-year-old former smoking, obese female with history of COPD, pulmonary nodules, hypertension, hyperlipidemia, rheumatoid arthritis who underwent bronchoscopy for lung nodules that was unrevealing Repeat CT chest October 2025, presented with
shortness of breath and hypoxemia, found to have covid and pulmonary consulted for covid/COPD exacerbation 06/14/25.
COPD exacerbation
Hemoptysis.
Covid positive.
Immunocompromised-rheumatoid arthritis on Plaquenil, methotrexate and Orencia.
Antibiotic use related diarrhea-azithromycin..
Thrombocytopenia
Conditions present prior to admission:
Hypertension.
Hyperlipidemia.
Depression.
Morbid obesity.
Nephrolithiasis.
COPD.
Pulmonary nodule, status post bronchoscopy 12/2024-negative.
RA.
Cystic kidney mass.
Hypothyroid.
History intracranial hemorrhage.
Lumbar screws. Left hip replacement. Brain aneurysm clipping 2014. Appendectomy.
Plan
Respiratory decompensation, likely related to covid infection in this immunocompromised patient was previously vaccinated and previously had natural immunity with COPD exacerbation..
Extensive radiographs, PET scan, PFTs, echocardiogram, bronchoscopy results including pathology, etc. summarized below
Supplemental oxygen as needed.
Assess discharge home oxygen needs prior to discharge.
Nebulizers s needed-on home Spiriva
Symbicort continues
Mucolytics
Mucus clearing devices.
Isolation per protocol in laminar flow Room
Check cultures.
covid positive.
Remdesivir initiated per protocol
Decadron 6 g IV daily.
Azithromycin held due to diarrhea.
DVT prophylaxis-on Lovenox.
Nutrition
Early mobilization.
Reviewed with nursing and primary team
The patient last saw 05/24/20/11/14/17-patient told to have CT chest October 2025
Diagnostic data:
.
Chest x-ray 06/11/25-NAD.
CT chest 06/13/25-no evidence for pulmonary embolism, extensive bilateral groundglass opacifications consistent with multifocal pneumonitis, nodular opacification right upper lobe without change from PET scan 01/13/25, mild centrilobular emphysema
CTA chest 10/15/2024: No CT evidence for pulmonary embolism. Widespread pneumonia in the left lung. There is also evidence for pneumonia at the right lung base. Additional more masslike opacities in the left lower lobe and in the posterior right
upper lobe. 3 mm nodule in the right upper lobe also noted.
CT chest without contrast 11/23/2024: Significant improvement in bilateral groundglass opacities, most suggestive of improving infectious or inflammatory disease. Linear arrangement of clustered nodular opacities within the right upper lobe, largest
nodular opacity measuring up to 8 mm in diameter, without significant change compared to prior study. Mild centrilobular emphysema. Mild coronary arterial calcification. Small hiatal hernia.
PET/CT skull-thigh 01/13/2025:�Clustered nodules within the right upper lobe�demonstrate a max SUV of 2.8 on�initial and delayed imaging�which would favor a benign etiology although low-grade malignancy cannot be excluded.� The groundglass opacities
within the superior left upper lobe demonstrate a max SUV of 2.5 on initial imaging and 2.7 on delayed imaging.� This may be infectious/inflammatory in nature although low-grade malignancy cannot be excluded.� Small focus of hypermetabolic activity
along the distal right iliopsoas which may be secondary to muscle activity or inflammation..
Robotic bronchoscopy - 12/08/2024:Right upper lobe biopsy: Minute fragments of lung parenchyma with rare atypical pneumocytes in a background of marked chronic inflammation with focal parenchymal fibrosis
Right upper lobe brush�- 12/08/2024:�negative for malignant cells; benign bronchial cells present
Right upper lobe TBNA��- 12/08/2024:� negative for malignant cells; benign bronchial cells and macrophages presentRight upper lobe
BAL�- 12/08/2024:� atypical cytology; rare clusters of atypical cells in a background of reactive bronchial cells, bacterial clusters and blood
Right upper lobe bronchus brush��- 12/08/2024:� atypical cytology;�few clusters of atypical cells present in a background of macrophages and acellular debris
Transthoracic echocardiogram 10/15/2024: Normal LV size and function with an estimated EF: 60-65%. Stage I diastolic dysfunction. Normal RV size and function. Trace MR. Mild TR with estimated PASP: 37 mmHg. No significant change when compared to the
most recent echocardiogram from 11/14/2023..
PFT 12/06/2024: Mild obstructive lung defect with a positive/nonsignificant bronchodilator response. No evidence of restriction. Moderately reduced gas exchange capacity. Data: FEV1/FVC: 70/95% predicted decreasing to 66/89% predicted with
bronchodilator. Post-BD FEV1: 1.62 L / 88% (+2% change with BD). Post-BD FVC: 2.47 L / 100% (+8% change with BD). T%. VC: 106%. RV: 80%. DLco: 51%. DLco/VA: 57%.
6MWT 11/11/2024: Patient did not qualify for home O2.� Resting SaO2 on room air: 96% with HR 66 and dyspnea scale: 0.� Duane SaO2 during testin% with max HR: 91 and dyspnea scale remaining at 0 for the entire test. Patient walked total of 750
feet.
Data Reviewed
-
PFT: Report reviewed by me
EKG: Report reviewed by me
Radiology: Report reviewed by me
CT Scan: Report reviewed by me
Medical Tests (Nuc Med, Echo etc): Report reviewed by me
Labs: Labs reviewed by me
Old Records: Reviewed
Total Time Spent with Patient (in minutes): 55
--- NOTE | 2025-06-14 12:23 | PTCARENOTE ---
Pt's assessment as documented. Aox3. NSR on tele monitor. Sating mid 90's on 6L NC. OOB to chair. Ringing appropriately- call salguero within reach.
[2025-06-14] MEDS: VEKLURY 250 MG IV (13:10)
[2025-06-14] MEDS: TOPROL XL 25 MG PO (17:48)
[2025-06-14] MEDS: COLACE 100 MG PO (17:48)
--- NOTE | 2025-06-14 20:00 | PTCARENOTE ---
Resumed care of pt laying in bed AAOx3, conversant and pleasant. HR in the 70's in NSR with BBB on the monitor. POX 92-94% on 3LO2 NC. Lungs course/ dec. Occasional dry non productive cough. + bowel, round obese abd. Pt reports no loose stools
today.Ambulatory to bathroom with walker as needed with assistance. +1 B/L LE edema noted. Palpable pulses. Left wrist int capped. Pt denies any complaints at this time. positioned in bed per comfort. Call salguero in reach. Will continue to monitor.
[2025-06-14] MEDS: LOVENOX 40 MG SC (20:42)
[2025-06-15] VITALS (11 sets, daily range): BP systolic 110–161; BP diastolic 41–98
[2025-06-15] MEDS: SYNTHROID 25 MCG PO (04:30)
[2025-06-15 05:03] LABS: Hematocrit 43.2 % (37.0-47.0); Hemoglobin 14.3 g/dL (12.0-16.0); Mean Corp Hgb Conc. 33.1 g/dL (33.0-37.0); Mean Corpuscular Volume 92.9 fL (81.0-99.0); Nucleated Red Blood Cells % 0 %; Platelet Count 146 10^3/uL (130-400); Red Cell Dist. Width 14.1 % (11.5-14.5)
[2025-06-15 05:36] LABS: ALT (SGPT) 21 U/L (0-35); AST (SGOT) 35 U/L (14-36); Albumin 3.6 g/dl (3.5-5.0); Alkaline Phosphatase 110 U/L (38-126); Blood Urea Nitrogen 25 mg/dl (7-17); Calcium 8.5 mg/dl (8.4-10.2); Carbon Dioxide 25 mmol/L (22-30); Chloride 106 mmol/L (98-107); Estimated Creatinine Clearance 67 ml/min; Glucose 111 mg/dl (70-99); Potassium 4.0 mmol/L (3.5-5.1); Sodium 136 mmol/L (135-145); Total Protein 6.7 g/dl (6.3-8.2); eGFR > 60.00
[2025-06-15] MEDS: SYMBICORT 160/4.5 MCG INHALER 2 PUFF INH ×2 (07:58→19:57)
[2025-06-15] MEDS: DECADRON 6 MG IV (08:44)
[2025-06-15] MEDS: WELLBUTRIN SR (12 hour sustained release) 150 MG PO ×2 (08:44→21:26)
[2025-06-15] MEDS: FOLVITE 1 MG PO (08:44)
[2025-06-15] MEDS: DESENEX/MITRAZOL/ZEASORB 1 APPLIC TOPICAL ×2 (08:45→21:27)
[2025-06-15] MEDS: VITAMIN D3 (cholecalciferol) 25 MCG PO (08:47)
--- NOTE | 2025-06-15 09:02 | PTCARENOTE ---
Received patient from night coordinator. Patient resting comfortably in bed. AAO, VSS. No events noted overnight. No complaints of pain at this time. Currently on 3L N/C, will attempt to wean as tolerated. Continuing Remdesivir. No testing at this
time. Call salguero in reach.
--- NOTE | 2025-06-15 10:50 | W.PN.PUL.V3 ---
Today's Communication / Plan
-
Wean oxygen.
No change in Decadron.
Remdesivir per protocol.
Hold immunosuppressants
Assessment
-
80-year-old former smoking, obese female with history of COPD, pulmonary nodules, hypertension, hyperlipidemia, rheumatoid arthritis who underwent bronchoscopy for lung nodules that was unrevealing Repeat CT chest October 2025, presented with
shortness of breath and hypoxemia, found to have covid and pulmonary consulted for covid/COPD exacerbation 06/14/25.
COPD exacerbation
Hemoptysis.
Covid positive.
Immunocompromised-rheumatoid arthritis on Plaquenil, methotrexate and Orencia.
Antibiotic use related diarrhea-azithromycin..
Thrombocytopenia
Conditions present prior to admission:
Hypertension.
Hyperlipidemia.
Depression.
Morbid obesity.
Nephrolithiasis.
COPD.
Pulmonary nodule, status post bronchoscopy 12/2024-negative.
RA.
Cystic kidney mass.
Hypothyroid.
History intracranial hemorrhage.
Lumbar screws. Left hip replacement. Brain aneurysm clipping 2014. Appendectomy.
Plan
Respiratory decompensation, likely related to covid infection in this immunocompromised patient was previously vaccinated and previously had natural immunity with COPD exacerbation..
Extensive radiographs, PET scan, PFTs, echocardiogram, bronchoscopy results including pathology, etc. summarized below
Supplemental oxygen as needed-currently on 3 L-95% saturation
Assess discharge home oxygen needs prior to discharge.
Nebulizers s needed-on home Spiriva
Symbicort continues
Mucolytics
Mucus clearing devices..
Incentive spirometry and flutter added
Isolation per protocol in laminar flow Room
Cultures reviewed
covid positive.
Blood cultures negative
Remdesivir initiated per protocol
Decadron 6 g IV daily-no change
Azithromycin held due to diarrhea..
Immunosuppressive medications given for rheumatoid arthritis will be held temporarily
DVT prophylaxis-on Lovenox.
Nutrition
Early mobilization.
Reviewed with nursing and primary team
The patient last saw 05/24/20/11/14/17-patient told to have CT chest October 2025
Diagnostic data:
.
Chest x-ray 06/11/25-NAD.
CT chest 06/13/25-no evidence for pulmonary embolism, extensive bilateral groundglass opacifications consistent with multifocal pneumonitis, nodular opacification right upper lobe without change from PET scan 01/13/25, mild centrilobular emphysema
CTA chest 10/15/2024: No CT evidence for pulmonary embolism. Widespread pneumonia in the left lung. There is also evidence for pneumonia at the right lung base. Additional more masslike opacities in the left lower lobe and in the posterior right
upper lobe. 3 mm nodule in the right upper lobe also noted.
CT chest without contrast 11/23/2024: Significant improvement in bilateral groundglass opacities, most suggestive of improving infectious or inflammatory disease. Linear arrangement of clustered nodular opacities within the right upper lobe, largest
nodular opacity measuring up to 8 mm in diameter, without significant change compared to prior study. Mild centrilobular emphysema. Mild coronary arterial calcification. Small hiatal hernia.
PET/CT skull-thigh 01/13/2025:�Clustered nodules within the right upper lobe�demonstrate a max SUV of 2.8 on�initial and delayed imaging�which would favor a benign etiology although low-grade malignancy cannot be excluded.� The groundglass opacities
within the superior left upper lobe demonstrate a max SUV of 2.5 on initial imaging and 2.7 on delayed imaging.� This may be infectious/inflammatory in nature although low-grade malignancy cannot be excluded.� Small focus of hypermetabolic activity
along the distal right iliopsoas which may be secondary to muscle activity or inflammation..
Robotic bronchoscopy - 12/08/2024:Right upper lobe biopsy: Minute fragments of lung parenchyma with rare atypical pneumocytes in a background of marked chronic inflammation with focal parenchymal fibrosis
Right upper lobe brush�- 12/08/2024:�negative for malignant cells; benign bronchial cells present
Right upper lobe TBNA��- 12/08/2024:� negative for malignant cells; benign bronchial cells and macrophages presentRight upper lobe
BAL�- 12/08/2024:� atypical cytology; rare clusters of atypical cells in a background of reactive bronchial cells, bacterial clusters and blood
Right upper lobe bronchus brush��- 12/08/2024:� atypical cytology;�few clusters of atypical cells present in a background of macrophages and acellular debris
Transthoracic echocardiogram 10/15/2024: Normal LV size and function with an estimated EF: 60-65%. Stage I diastolic dysfunction. Normal RV size and function. Trace MR. Mild TR with estimated PASP: 37 mmHg. No significant change when compared to the
most recent echocardiogram from 11/14/2023..
PFT 12/06/2024: Mild obstructive lung defect with a positive/nonsignificant bronchodilator response. No evidence of restriction. Moderately reduced gas exchange capacity. Data: FEV1/FVC: 70/95% predicted decreasing to 66/89% predicted with
bronchodilator. Post-BD FEV1: 1.62 L / 88% (+2% change with BD). Post-BD FVC: 2.47 L / 100% (+8% change with BD). T%. VC: 106%. RV: 80%. DLco: 51%. DLco/VA: 57%.
6MWT 11/11/2024: Patient did not qualify for home O2.� Resting SaO2 on room air: 96% with HR 66 and dyspnea scale: 0.� Duane SaO2 during testin% with max HR: 91 and dyspnea scale remaining at 0 for the entire test. Patient walked total of 750
feet.
Subjective Data
-
Date of Service:
Date of Service: June 15, 2025
Chief Complaint: Pulmonary Follow Up and Dyspnea Follow Up
Subjective:
Overall slightly better, no chest pain, some chest congestion, nonproductive cough, no abdominal pain
Review of Systems
General: Other ( per HPI)
Objective Data
Data Reviewed
Vital Signs / I&O:
Vital Signs
Temp Pulse Resp BP Pulse Ox
97.9 F 76 16 149/61 95
06/15/25 07:09 06/15/25 08:11 06/15/25 08:11 06/15/25 06:00 06/15/25 09:30
Intake and Output
06/14/25 06/15/25 06/16/25
06:59 06:59 06:59
Intake Total 240 / 240 480 / 480 120 / 120
Balance 240 / 240 480 / 480 120 / 120
SaO2: 95
Nasal Cannula flow liters per minute: 3
Physical Exam
General: Respiratory Distress (n) and Comfortable
HEENT: Normocephalic and Moist Mucous Membranes
Cardiovascular: Regular Rhythm and Murmur
Respiratory: Crackles (. Basilar), Non-Labored Respirations, Accessory Resp Muscle Use (n) and Stridor (n)
GI: Soft, Non Distended and Non Tender
Neurology: Awake and No Motor Deficits
Skin: Warm, Good Color, Cyanosis (n), Jaundice (n) and Rash (n)
Labs/Micro/Reports
Lab Data
06/15/25 04:22
06/15/25 04:22
Microbiology
06/13/25 10:36 Blood/Venous Blood Culture - Preliminary
No Growth in 48 hours- Final report to follow
06/13/25 10:15 Blood/Venous Blood Culture - Preliminary
No Growth in 48 hours- Final report to follow
06/13/25 10:15 Nasal Swab Influenza Types A & B (ALVIN) - Final
Negative for Influenza A & B, NAAT
Negative results must be combined with clinical observations
and patient history.
Nucleic Acid Amplification test (NAAT)performed on the
[employer] platform.
[2025-06-15] MEDS: VEKLURY 250 MG IV (13:09)
--- NOTE | 2025-06-15 14:55 | W.PN.HOSP.TC ---
Today's Communication/Plan
-
Continue current therapy
Wean off oxygen as possible
Transfer to [facility] [place]
Assessment / Plan
Assessment / Plan
#Acute hypoxic respiratory insufficiency
COVID-19 viral pneumonia
-CT chest images reviewed and have changes of COPD with superimposed infiltrates
-Currently on remdesivir and IV Decadron 6 mg daily
-Infection disease/pulmonology has been consulted for further help
-Patient was prescribed azithromycin by outpatient physician, no true clinical concern of bacterial pneumonia. will hold abx for now
- Continues to remain on oxygen through nasal cannula, wean off as possible
# Antibiotic use related diarrhea - Improved
- Patient having some diarrhea likely from azithromycin use and COVID-related
- Hold on checking any stool testing and monitor
#Rheumatoid arthritis history
Hold Plaquenil, methotrexate last dose was 06/01, hold Orencia once a month was due tomorrow 06/14/2025
# Cystic mass in the upper mid right kidney measuring at least 3.4 cm
-OP Work up discussed with daughter October 2024 admission
# Thrombocytopenia
- Mild monitor
# H/O spontaneous aneurysmal bleed s/p clipping 2014
# Hypothyroidism: cont Levoxyl
# Hypertension-continue metoprolol
# Hyperlipidemia: Hold statin in the setting of IV remdesivir
# Depression: cont Zoloft/Wellbutrin
# Morbid obesity BMI 43- Weight loss recommended affects all aspects of care
# History of nephrolithiasis
# Ex Smoker
DVT prophylaxis-Subcu Lovenox
DNR per patient with daughter present at bedside
Anticipated Discharge: > 48 hours
Subjective/Interval History
-
Date of Service: June 15, 2025
Remains on oxygen through nasal cannula
Continues to have some dry cough
Afebrile
Objective Data
-
Labs:
Laboratory Results
06/15/25
04:22
WBC 7.0
Hgb 14.3
Hct 43.2
Plt Count 146
Sodium 136
Potassium 4.0
Chloride 106
Carbon Dioxide 25
BUN 25 H
Creatinine 0.8
Glucose 111 H
Calcium 8.5
Total Bilirubin 0.4
AST 35
ALT 21
Alkaline Phosphatase 110
Vital Signs:
Vital Signs
Temp Pulse Resp BP Pulse Ox
98.2 F 76 16 149/61 95
06/15/25 11:05 06/15/25 08:11 06/15/25 08:11 06/15/25 06:00 06/15/25 10:50
I&O
06/14/25 06/15/25 06/16/25
06:59 06:59 06:59
Intake Total 240 / 240 480 / 480 300 / 300
Balance 240 / 240 480 / 480 300 / 300
Review of Systems
-
Respiratory: Reports Cough; Denies Trouble Breathing
Cardiac: Reports No Symptoms
Abdomen/GI: Reports No Symptoms
Physical Exam
-
General: Comfortable and Obese
HEENT: Oxygen (3L NC)
Respiratory: Clear to Auscultation
Cardiac: Regular Rhythm and S1/S2; Negative Murmur or Rub
GI: Soft, Nontender and Nondistended
Musculoskeletal: No Edema
Neuro: Awake, Alert, Oriented, No Motor Deficits and Nonfocal/Grossly Intact
Psych: Calm
[2025-06-15] MEDS: TOPROL XL 25 MG PO (17:02)
[2025-06-15] MEDS: COLACE 100 MG PO (17:02)
[2025-06-15] MEDS: ZOLOFT 50 MG PO (17:06)
[2025-06-15] MEDS: LOVENOX 40 MG SC (21:26)
[2025-06-15] MEDS: BENADRYL 25 MG PO (21:26)
[2025-06-16] MEDS: SYNTHROID 25 MCG PO (05:09)
[2025-06-16 05:29] LABS: Hematocrit 39.0 % (37.0-47.0); Hemoglobin 13.0 g/dL (12.0-16.0); Mean Corp Hgb Conc. 33.3 g/dL (33.0-37.0); Mean Corpuscular Volume 91.1 fL (81.0-99.0); Nucleated Red Blood Cells % 0 %; Platelet Count 141 10^3/uL (130-400); Red Cell Dist. Width 14.1 % (11.5-14.5)
[2025-06-16 05:55] LABS: ALT (SGPT) 23 U/L (0-35); AST (SGOT) 31 U/L (14-36); Albumin 3.1 g/dl (3.5-5.0); Alkaline Phosphatase 86 U/L (38-126); Blood Urea Nitrogen 20 mg/dl (7-17); Calcium 8.2 mg/dl (8.4-10.2); Carbon Dioxide 26 mmol/L (22-30); Chloride 107 mmol/L (98-107); Estimated Creatinine Clearance 67 ml/min; Glucose 108 mg/dl (70-99); Potassium 3.8 mmol/L (3.5-5.1); Sodium 137 mmol/L (135-145); Total Protein 6.1 g/dl (6.3-8.2); eGFR > 60.00
[2025-06-16] MEDS: SYMBICORT 160/4.5 MCG INHALER 2 PUFF INH ×2 (07:31→19:35)
[2025-06-16] MEDS: WELLBUTRIN SR (12 hour sustained release) 150 MG PO ×2 (08:59→19:56)
[2025-06-16] MEDS: ROBITUSSIN 200 MG PO (08:59)
[2025-06-16] MEDS: DECADRON 6 MG IV (08:59)
[2025-06-16] MEDS: VITAMIN D3 (cholecalciferol) 25 MCG PO (08:59)
[2025-06-16] MEDS: FOLVITE 1 MG PO (08:59)
[2025-06-16] MEDS: DESENEX/MITRAZOL/ZEASORB 1 APPLIC TOPICAL ×2 (09:00→21:53)
[2025-06-16 09:04] VITALS: BP 140/62
--- NOTE | 2025-06-16 10:36 | W.PN.PUL.V3 ---
Today's Communication / Plan
-
Antivirals and Decadron per protocol
Wean oxygen
Increase activity
Pulmonary will sign off-please call with questions
Assessment
-
80-year-old former smoking, obese female with history of COPD, pulmonary nodules, hypertension, hyperlipidemia, rheumatoid arthritis who underwent bronchoscopy for lung nodules that was unrevealing Repeat CT chest October 2025, presented with
shortness of breath and hypoxemia, found to have covid and pulmonary consulted for covid/COPD exacerbation 06/14/25.
COPD exacerbation
Hemoptysis.
Covid positive.
Immunocompromised-rheumatoid arthritis on Plaquenil, methotrexate and Orencia.
Antibiotic use related diarrhea-azithromycin..
Thrombocytopenia
Conditions present prior to admission:
Hypertension.
Hyperlipidemia.
Depression.
Morbid obesity.
Nephrolithiasis.
COPD.
Pulmonary nodule, status post bronchoscopy 12/2024-negative.
RA.
Cystic kidney mass.
Hypothyroid.
History intracranial hemorrhage.
Lumbar screws. Left hip replacement. Brain aneurysm clipping 2014. Appendectomy.
Plan
Respiratory decompensation, likely related to covid infection in this immunocompromised patient was previously vaccinated and previously had natural immunity with COPD exacerbation..
Extensive radiographs, PET scan, PFTs, echocardiogram, bronchoscopy results including pathology, etc. summarized below
Supplemental oxygen as needed-currently on 3 L-95% saturation-occasionally 92% on room air
Assess discharge home oxygen needs prior to discharge.
Nebulizers s needed-on home Spiriva
Symbicort continues
Mucolytics
Mucus clearing devices..
Incentive spirometry and flutter added
Isolation per protocol in laminar flow Room
Cultures reviewed
covid positive.
Blood cultures negative
Remdesivir initiated per protocol
Decadron 6 g IV daily per protocol
Azithromycin held due to diarrhea..
Immunosuppressive medications given for rheumatoid arthritis will be held temporarily
DVT prophylaxis-on Lovenox.
Nutrition
Early mobilization.
Stable for transfer to [facility]-significant improvements-pulmonary will sign off-please call with questions
Reviewed with nursing and primary team
The patient last saw 05/24/20/11/14/17-patient told to have CT chest October 2025
Diagnostic data:
.
Chest x-ray 06/11/25-NAD.
CT chest 06/13/25-no evidence for pulmonary embolism, extensive bilateral groundglass opacifications consistent with multifocal pneumonitis, nodular opacification right upper lobe without change from PET scan 01/13/25, mild centrilobular emphysema
CTA chest 10/15/2024: No CT evidence for pulmonary embolism. Widespread pneumonia in the left lung. There is also evidence for pneumonia at the right lung base. Additional more masslike opacities in the left lower lobe and in the posterior right
upper lobe. 3 mm nodule in the right upper lobe also noted.
CT chest without contrast 11/23/2024: Significant improvement in bilateral groundglass opacities, most suggestive of improving infectious or inflammatory disease. Linear arrangement of clustered nodular opacities within the right upper lobe, largest
nodular opacity measuring up to 8 mm in diameter, without significant change compared to prior study. Mild centrilobular emphysema. Mild coronary arterial calcification. Small hiatal hernia.
PET/CT skull-thigh 01/13/2025:�Clustered nodules within the right upper lobe�demonstrate a max SUV of 2.8 on�initial and delayed imaging�which would favor a benign etiology although low-grade malignancy cannot be excluded.� The groundglass opacities
within the superior left upper lobe demonstrate a max SUV of 2.5 on initial imaging and 2.7 on delayed imaging.� This may be infectious/inflammatory in nature although low-grade malignancy cannot be excluded.� Small focus of hypermetabolic activity
along the distal right iliopsoas which may be secondary to muscle activity or inflammation..
Robotic bronchoscopy - 12/08/2024:Right upper lobe biopsy: Minute fragments of lung parenchyma with rare atypical pneumocytes in a background of marked chronic inflammation with focal parenchymal fibrosis
Right upper lobe brush�- 12/08/2024:�negative for malignant cells; benign bronchial cells present
Right upper lobe TBNA��- 12/08/2024:� negative for malignant cells; benign bronchial cells and macrophages presentRight upper lobe
BAL�- 12/08/2024:� atypical cytology; rare clusters of atypical cells in a background of reactive bronchial cells, bacterial clusters and blood
Right upper lobe bronchus brush��- 12/08/2024:� atypical cytology;�few clusters of atypical cells present in a background of macrophages and acellular debris
Transthoracic echocardiogram 10/15/2024: Normal LV size and function with an estimated EF: 60-65%. Stage I diastolic dysfunction. Normal RV size and function. Trace MR. Mild TR with estimated PASP: 37 mmHg. No significant change when compared to the
most recent echocardiogram from 11/14/2023..
PFT 12/06/2024: Mild obstructive lung defect with a positive/nonsignificant bronchodilator response. No evidence of restriction. Moderately reduced gas exchange capacity. Data: FEV1/FVC: 70/95% predicted decreasing to 66/89% predicted with
bronchodilator. Post-BD FEV1: 1.62 L / 88% (+2% change with BD). Post-BD FVC: 2.47 L / 100% (+8% change with BD). T%. VC: 106%. RV: 80%. DLco: 51%. DLco/VA: 57%.
6MWT 11/11/2024: Patient did not qualify for home O2.� Resting SaO2 on room air: 96% with HR 66 and dyspnea scale: 0.� [place]ane SaO2 during testin% with max HR: 91 and dyspnea scale remaining at 0 for the entire test. Patient walked total of 750
feet.
Subjective Data
-
Date of Service:
Date of Service: June 16, 2025
Chief Complaint: Pulmonary Follow Up and Dyspnea Follow Up
Subjective:
Feels a little better, no complaints of increased shortness of breath, chest pain or abdominal pain
Review of Systems
General: Other (Per HPI)
Objective Data
Data Reviewed
Vital Signs / I&O:
Vital Signs
Temp Pulse Resp BP Pulse Ox
97.7 F 56 20 140/62 92
06/16/25 09:04 06/16/25 09:04 06/16/25 09:04 06/16/25 09:04 06/16/25 09:52
Intake and Output
06/15/25 06/16/25 06/17/25
06:59 06:59 06:59
Intake Total 480 / 480 660 / 660
Balance 480 / 480 660 / 660
SaO2: 92
Nasal Cannula flow liters per minute: 3
Physical Exam
General: Respiratory Distress (n) and Comfortable
HEENT: Normocephalic and Moist Mucous Membranes
Cardiovascular: Regular Rhythm and Murmur
Respiratory: Crackles (. Basilar), Non-Labored Respirations, Accessory Resp Muscle Use (n) and Stridor (n)
GI: Soft, Non Distended and Non Tender
Neurology: Awake and No Motor Deficits
Skin: Warm, Good Color, Cyanosis (n), Jaundice (n) and Rash (n)
Labs/Micro/Reports
Lab Data
06/16/25 05:16
06/16/25 05:16
Microbiology
06/13/25 10:36 Blood/Venous Blood Culture - Preliminary
No Growth in 48 hours- Final report to follow
06/13/25 10:15 Blood/Venous Blood Culture - Preliminary
No Growth in 48 hours- Final report to follow
06/13/25 10:15 Nasal Swab Influenza Types A & B (ALVIN) - Final
Negative for Influenza A & B, NAAT
Negative results must be combined with clinical observations
and patient history.
Nucleic Acid Amplification test (NAAT)performed on the
[employer] platform.
[2025-06-16] MEDS: VEKLURY 250 MG IV (11:36)
--- NOTE | 2025-06-16 12:26 | CM ---
F/U: Spoke to patient about PT/OT recommendations, she stated she gets this at [facility] already. Thus far, no other needs. PLAN: Return to [facility].
[2025-06-16 12:51] VITALS: BP 157/62
--- NOTE | 2025-06-16 13:00 | TRANSFER ---
Report given to RN, patient transferred via stretcher with all belongings accompanied by RN. IV Remdesivir infusing during transfer - tolerated. Precautions maintained.
--- NOTE | 2025-06-16 13:01 | PN.CDI ---
CDI
- -
CDI:
Physician Documentation Request
Admit Date: 06/13/25 16:01
Dear Doctor Geronimo,
Patient admitted with COVID-19 viral pneumonia.
06/15 PN, 'Acute hypoxic respiratory insufficiency...'
Oxygen use documented below:
Selected Entries
06/13/25
23:25 06/14/25
00:50 06/14/25
08:11
Nasal Cannula flow liters per minute 7 6 6
06/14/25
08:26 06/14/25
11:56 06/14/25
12:00
Nasal Cannula flow liters per minute 5 5 5
06/14/25
14:06 06/14/25
19:42
Nasal Cannula flow liters per minute 6 5
Please provide in your note the diagnosis associated with the above oxygen use:
Acute hypoxic respiratory failure
Hypoxia only
Other
Use of terms such as suspected, likely, concern for, or probable (associated with a specific diagnosis that is being evaluated, monitored, or treated as if it exists) are acceptable and can be coded in the inpatient setting, when documented at the
time of discharge.
Thank you,
Megha MUNIZ,RN,CCDS
CDI Specialist
Available via [place] text
Please use your independent medical judgment in providing your response.
--- NOTE | 2025-06-16 13:57 | W.PN.HOSP.TC ---
Addendum entered and electronically signed by Lenny Melton MD 06/17/25 08:24:
Adjust dx
Acute hypoxic respiratory failure - wean off o2 as possible
Original Note:
Today's Communication/Plan
-
Home O2 evaluation in the morning
Discharge for tomorrow
Assessment / Plan
Assessment / Plan
#Acute hypoxic respiratory insufficiency - resolved
COVID-19 viral pneumonia
-CT chest images reviewed and have changes of COPD with superimposed infiltrates
-Currently on remdesivir and IV Decadron 6 mg daily
-Infection disease/pulmonology has been consulted for further help
-Patient was prescribed azithromycin by outpatient physician, no true clinical concern of bacterial pneumonia. will hold abx for now
- Patient able to be weaned off of oxygen. Home O2 evaluation for morning ordered
# Antibiotic use related diarrhea - Improved
- Patient having some diarrhea likely from azithromycin use and COVID-related
- Hold on checking any stool testing and monitor
#Rheumatoid arthritis history
Hold Plaquenil, methotrexate last dose was 06/01, hold Orencia once a month was due tomorrow 06/14/2025
# Cystic mass in the upper mid right kidney measuring at least 3.4 cm
-OP Work up discussed with daughter October 2024 admission
# Thrombocytopenia
- Mild monitor
# H/O spontaneous aneurysmal bleed s/p clipping 2014
# Hypothyroidism: cont Levoxyl
# Hypertension-continue metoprolol
# Hyperlipidemia: Hold statin in the setting of IV remdesivir
# Depression: cont Zoloft/Wellbutrin
# Morbid obesity BMI 43- Weight loss recommended affects all aspects of care
# History of nephrolithiasis
# Ex Smoker
DVT prophylaxis-Subcu Lovenox
DNR per patient with daughter present at bedside
Anticipated Discharge: Within 24 hours
Subjective/Interval History
-
Date of Service: June 16, 2025
Subjective feeling better
Off of oxygen at rest
Denies excessive cough
Afebrile overnight
Objective Data
-
Labs:
Laboratory Results
06/16/25
05:16
WBC 6.0
Hgb 13.0
Hct 39.0
Plt Count 141
Sodium 137
Potassium 3.8
Chloride 107
Carbon Dioxide 26
BUN 20 H
Creatinine 0.8
Glucose 108 H
Calcium 8.2 L
Total Bilirubin 0.3
AST 31
ALT 23
Alkaline Phosphatase 86
Vital Signs:
Vital Signs
Temp Pulse Resp BP Pulse Ox
98.1 F 62 20 157/62 91
06/16/25 12:51 06/16/25 12:51 06/16/25 12:51 06/16/25 12:51 06/16/25 12:51
I&O
06/15/25 06/16/25 06/17/25
06:59 06:59 06:59
Intake Total 480 / 480 660 / 660
Balance 480 / 480 660 / 660
Review of Systems
-
Respiratory: Reports No Symptoms
Cardiac: Reports No Symptoms
Abdomen/GI: Reports No Symptoms
Physical Exam
-
General: Comfortable and Obese
HEENT: Negative Oxygen (3L NC)
Neuro: Awake, Alert, Oriented, No Motor Deficits and Nonfocal/Grossly Intact
Psych: Calm
[2025-06-16 14:29] VITALS: BP 165/65; PULSE 58; O2SAT 93
[2025-06-16 15:04] VITALS: BP 151/69
[2025-06-16] MEDS: ZOLOFT 50 MG PO (17:28)
[2025-06-16] MEDS: COLACE 100 MG PO (17:28)
[2025-06-16] MEDS: TOPROL XL 25 MG PO (17:28)
[2025-06-16] MEDS: LOVENOX 40 MG SC (19:56)
[2025-06-16] MEDS: TYLENOL 650 MG PO (20:03)
[2025-06-16 23:19] VITALS: BP 173/62
[2025-06-17 00:35] VITALS: BP 161/64
[2025-06-17 04:01] VITALS: BP 155/71
[2025-06-17] MEDS: SYNTHROID 25 MCG PO (06:26)
[2025-06-17 07:00] VITALS: BP 150/72
[2025-06-17] MEDS: DECADRON 6 MG IV (07:55)
[2025-06-17] MEDS: VITAMIN D3 (cholecalciferol) 25 MCG PO (07:55)
[2025-06-17] MEDS: FOLVITE 1 MG PO (07:55)
[2025-06-17] MEDS: DESENEX/MITRAZOL/ZEASORB 1 APPLIC TOPICAL (07:55)
[2025-06-17] MEDS: WELLBUTRIN SR (12 hour sustained release) 150 MG PO (07:55)
[2025-06-17] MEDS: SYMBICORT 160/4.5 MCG INHALER 2 PUFF INH (08:29)
[2025-06-17] MEDS: PROCARDIA XL (EXTENDED RELEASE) 30 MG PO (11:19)
--- NOTE | 2025-06-17 11:21 | CM ---
Patient will discharge back to [facility] today
Therapy rec HH, patient is current w/ PT at [facility], will continue upon return
Updated patient's daughter, Porsche, who confirmed that patient is in independent living and that they were informed lastnight of patient's return, however, patient is ok to return, all she needs to do is sign in
Porsche confirmed she is able to pick patient up around 2:30
IMM verbally reviewed, copy on chart
Plan: Return to [facility]- Independent Living. No needs
--- NOTE | 2025-06-17 11:32 | PTCARENOTE ---
Patient for discharge--patient's daughter will be picking her up at 1430. Discharge instructions reviewed with patient. IV removed. All patient needs met. Awaiting daughter's arrival.
[2025-06-17 11:33] VITALS: BP 146/62
[2025-06-17 14:26] LABS: COVID-19 Antigen Negative (Negative)
--- NOTE | 2025-06-17 15:48 | W.DCSUMMARY ---
Discharge Summary
Discharge Data
Date of Admission: 06/13/25
Date of Discharge: 06/17/25
-
Pending Results: No
Hospital Course
Discharging Physician : Dr Lenny Melton
Disposition : TO home
Primary care physician : Dr Mojgan Burciaga
Principal Discharge diagnosis :
COVID-19 viral pneumonia
Acute hypoxic respiratory failure
Antibiotic use related diarrhea
Chronic Discharge diagnosis :
Rheumatoid arthritis
Thrombocytopenia
History of cerebral aneurysm status post clipping
Hypothyroidism
Essential hypertension
Hyperlipidemia
Depression
Morbid obesity
Former smoker
Physical examination
General: Comfortable and Obese
HEENT: on RA
Respiratory: Clear to Auscultation
Cardiac: Regular Rhythm and S1/S2; Negative Murmur or Rub
GI: Soft, Nontender and Nondistended
Musculoskeletal: No Edema
Neuro: Awake, Alert, Oriented, No Motor Deficits and Nonfocal/Grossly Intact
Psych: Calm
Hospital Course :
Patient is a 80-year-old female with above-mentioned past medical history came to ER with new onset of shortness of breath and dry cough. patient recently had some upper respiratory tract infection and was provided Zithromax by urgent care
physician. Patient did not have any improvement in symptoms. Patient was tested positive for COVID. CT chest was done which showed diffuse bilateral ground glass opacity consistent with multifocal pneumonia. Patient was started on
remdesivir/steroid therapy and pulmonology was involved in care. Patient had improvement in symptoms in 72 hours with patient being able to be weaned off of oxygen. Patient was evaluated by physical therapy and was appropriate for home level care.
Patient was discharged home off of remdesivir and steroid. Patient will follow-up with primary care physician in office in 1 week.
Important imaging findings :
None
Procedure findings :
None
Discharge Plan
-
Patient Disposition: Home with Home Care
Discharge Diagnosis/Procedures: COVID 19 Viral pneumonia, Hypoxic respiratory failure
Condition: Fair
Diet: Low Sodium
Activity: As tolerated
Driving Restrictions: No driving
Bathing Restrictions: OK to Shower
Referrals:
Mojgan Burciaga DO [Family Provider, General] - in one week
Jose Laguna MD [Active, Pulmonary Medicine] - in one to two weeks
Referral Note: covid pna hospitalized
Prescriptions:
Continued
bupropion HCl 150 mg Tablet Sustained-Release 12 Hr
150 mg PO BID
atorvastatin 20 mg Tablet
20 mg PO QPM
levothyroxine 25 mcg Tablet
25 mcg PO DAILY
docusate sodium 100 mg Capsule
100 mg PO QPM
folic acid 1 mg Tablet
1 mg PO DAILY
hydroxychloroquine [Plaquenil] 200 mg Tablet
200 mg PO BID
sertraline 50 mg Tablet
50 mg PO QPM
cholecalciferol (vitamin D3) [Vitamin D3] 25 mcg (1,000 unit) Tablet
25 mcg PO DAILY
acetaminophen 325 mg Tablet
650 mg PO Q4HPRN PRN (Reason: mild pain) Qty: 30 0RF
metoprolol succinate 25 mg Tablet Extended Release 24 Hr
25 mg PO QPM Qty: 30 0RF
ipratropium-albuterol 0.5 mg-3 mg(2.5 mg base)/3 mL solution for nebulization
3 ml inhalation BID
dextromethorphan polistirex [Delsym 12 hour] 30 mg/5 mL Suspension,Extended Rel 12 Hr
10 ml PO DAILYPRN PRN (Reason: cough)
budesonide-formoterol [Symbicort] 160-4.5 mcg/actuation Hfa Aerosol Inhaler
2 puff INHALATION R BID
furosemide [Lasix] 20 mg tablet
20 mg PO DAILYPRN PRN (Reason: swelling)
Orencia
87.5 mg PO MONTHLY
Rx Instructions:
87.5/0.7 ml
Held
methotrexate
2.5 ml PO WE
Hold Instructions: Resume on 07/04/25. Resume after discussion with roll over loader
Discharge Orders:
Discharge Patient (As Directed); Ordered 06/17/25
Ordered By: Lenny Melton
Discharge Date and Time
Discharge Date/Time: 06/17/25 15:11
Print Language: FAROESE
== END 2025-06-17 15:11 | disposition home or self-care (01) | DRG 177 ==
LOC: 4 WEST ACU 16:01
PROVIDERS: Clinical Nurse Specialist Family Health; Physician Assistant; ADMITTING PHYSICIAN Internal Medicine; ATTENDING PHYSICIAN Hospitalist; CONSULT PHYSICIAN Internal Medicine Critical Care Medicine; EMERGENCY PHYSICIAN Emergency Medicine; FAMILY PHYSICIAN Hospitalist
PROC: XW033E5 Introduction of Remdesivir Anti-infective into Peripheral Vein, Percutaneous Approach, New Technology Group 5 (ICD-10-PCS; 2025-06-13)
DX: U07.1 COVID-19 (principal); J12.82 Pneumonia due to coronavirus disease 2019; J96.01 Acute respiratory failure with hypoxia; J44.0 Chronic obstructive pulmonary disease with (acute) lower respiratory infection; J44.1 Chronic obstructive pulmonary disease with (acute) exacerbation; R04.2 Hemoptysis; Z68.41 Body mass index [BMI] 40.0-44.9, adult; N17.9 Acute kidney failure, unspecified; D84.821 Immunodeficiency due to drugs; K52.1 Toxic gastroenteritis and colitis; E03.9 Hypothyroidism, unspecified; I10 Essential (primary) hypertension; E78.5 Hyperlipidemia, unspecified; F32.A Depression, unspecified; N28.1 Cyst of kidney, acquired; E66.01 Morbid (severe) obesity due to excess calories; D69.6 Thrombocytopenia, unspecified; M06.9 Rheumatoid arthritis, unspecified; N28.89 Other specified disorders of kidney and ureter; T36.95XA Adverse effect of unspecified systemic antibiotic, initial encounter; Y92.239 Unspecified place in hospital as the place of occurrence of the external cause; Z60.2 Problems related to living alone; Z66 Do not resuscitate; Z96.642 Presence of left artificial hip joint; Z79.890 Hormone replacement therapy; Z79.51 Long term (current) use of inhaled steroids; Z87.891 Personal history of nicotine dependence; Z86.16 Personal history of COVID-19; Z87.442 Personal history of urinary calculi; Z79.899 Other long term (current) drug therapy; Z98.1 Arthrodesis status; Z82.0 Family history of epilepsy and other diseases of the nervous system; Z80.51 Family history of malignant neoplasm of kidney; Z79.631 Long term (current) use of antimetabolite agent
CPT/HCPCS: 71275; 80053; 83605; 85025; 87040; 87502; 87811; 94640; 96374; 97162; 97166; 97530; 99285; J0248; Q9967